=== PATIENT | male | born 1945 | race American Indian/Alaskan Native ===

== ENCOUNTER 2017-06-15 04:49 | Emergency (ER) | payer MEDICARE, OTHER ==
[~2017-06-15] VITALS: Ht 162.6 cm; Wt 81.7 kg
[~2017-06-15 04:49] MED LIST: ACETAMINOPHEN325 M1 PO; DAILY VITAMIN1 EAC2 PO; DIAZEPAM5 MG PO; DOCUSATE SODIU100 MG PO; DUONEB 0.5 MG-33 ML INH; HYDROCODON-ACE1 EA10 PO; HYDROCODON-ACE1 EAC8 PO; IBUPROFEN200 MG PO; IBUPROFEN400 MG PO; IPRAT-ALBUT 0.5-3 ML INH; LISINOPRIL10 MG PO; LOPERAMIDE2 M1 PO; MAALOX525 MG/15 PO; MILK OF MA400 MG/5 M PO; NORCO 10-325 T1 EACH PO; PROAIR HFA8.5 GM INH; TRAZODONE HCL50 MG PO; VITAMIN D32000 UNIT PO
== END 2017-06-15 06:20 | disposition home or self-care (01) ==
LOC: ED 04:49
DX: F10.229 Alcohol dependence with intoxication, unspecified (principal); I10 Essential (primary) hypertension; E78.00 Pure hypercholesterolemia, unspecified; Z87.891 Personal history of nicotine dependence; Z88.6 Allergy status to analgesic agent
CPT/HCPCS: 99283

== ENCOUNTER 2017-11-08 14:53 | Emergency (ER) | payer MEDICARE, OTHER ==
[~2017-11-08] VITALS: Ht 162.6 cm; Wt 81.7 kg
[2017-11-08] MEDS ORDERED: IBUPROFEN600 MG PO (15:10)
[2017-11-08] MEDS ORDERED: KEFLEX500 MG PO (15:10)
== END 2017-11-08 15:18 | disposition home or self-care (01) ==
LOC: ED 14:53
DX: M79.645 Pain in left finger(s) (principal); M79.89 Other specified soft tissue disorders

== ENCOUNTER 2017-12-07 20:01 | Emergency (ER) | payer MEDICARE, OTHER ==
[~2017-12-07] VITALS: Ht 162.6 cm; Wt 81.7 kg
[~2017-12-07 20:01] MED LIST changes: +IBUPROFEN600 MG PO; +KEFLEX500 MG PO
== END 2017-12-07 21:56 | disposition home or self-care (01) ==
LOC: ED 20:01
DX: S41.111A Laceration without foreign body of right upper arm, initial encounter (principal); W17.89XA Other fall from one level to another, initial encounter; E78.00 Pure hypercholesterolemia, unspecified; I10 Essential (primary) hypertension; Z88.8 Allergy status to other drugs, medicaments and biological substances; Z79.899 Other long term (current) drug therapy; Z79.2 Long term (current) use of antibiotics
CPT/HCPCS: 99282

== ENCOUNTER 2018-01-23 19:39 | Emergency (ER) | payer MEDICARE, OTHER ==
[~2018-01-23] VITALS: Ht 162.6 cm; Wt 81.7 kg
--- OUTSIDE RECORDS SUMMARY | ~2018-01-23 | XMS | Clinical Summary ---
Demographics + + + | Address | [address] | | | [place] [address] | + + + | Home Phone | | + + + | Preferred Language | Unknown | + + + | Marital Status | | + + + | Episcopal Affiliation | Unknown | + + + | Race | Unknown | + + + | Ethnic Group | Unknown | + + + Author + + + | Author | [employer] | + + + | Organization | [facility] | + + + | Address | Unknown | + + + | Phone | Unavailable | + + + Support + + + + + | Name | Relationship | Address | Phone | + + + + + | Roxann Hicks | ECON | [address] | | | | | [place] | | | | | [address] | | + + + + + Care Team Providers + +------+ + | Care Electro Mechanical Technologist Name | Role | Phone | + +------+ + | Cornelius Munguia | PP | | + +------+ + Allergies + + + + + + | Active Allergy | Reactions | Severity | Noted | Comments | | | | | Date | | + + + + + + | Salsalate | Other (See Comments) | Medium | 04/10/20 | Unable to assess | | | | | 16 | | + + + + + + Current Medications No known medications Active Problems + + + | Problem | Noted Date | + + + | Head trauma | 04/10/2016 | + + + | 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, continuous | 04/10/2016 | + + + | Alcohol abuse | 04/10/2016 | + + + | Hypokalemia | 04/10/2016 | + + + | Unspecified essential hypertension | 04/10/2016 | + + + | Hyperlipidemia | 04/10/2016 | + + + Social History + +-------+ +--------+ + | Tobacco Use | Types | Packs/Day | Years | Date | | | | | Used | | + +-------+ +--------+ + | Former Smoker | | | | Quit: 07/28/1981 | + +-------+ +--------+ + + + +---------+ + | Alcohol Use | Drinks/We | oz/Week | Comments | | | ek | | | + + +---------+ + | Yes | | | #2 40oz beer | + + +---------+ + + + + | Sex Assigned at | Date Recorded | | | | + + + | Not on file | | + + + Last Filed Vital Signs + + + + | Vital Sign | Reading | Time Taken | + + + + | Blood Pressure | 149/69 | 04/10/2016 3:13 PM PST | + + + + | Pulse | 70 | 04/10/2016 3:13 PM PST | + + + + | Temperature | 36.8 C (98.2 F) | 04/10/2016 3:13 PM PST | + + + + | Respiratory Rate | 18 | 04/10/2016 3:13 PM PST | + + + + | Oxygen Saturation | 100% | 04/10/2016 3:13 PM PST | + + + + | Inhaled Oxygen | - | - | | Concentration | | | + + + + | Weight | 82.6 kg (182 lb) | 04/10/2016 5:46 AM PST | + + + + | Height | 165.1 cm (5' 5") | 04/10/2016 5:46 AM PST | + + + + | Body Mass Index | 30.29 | 04/10/2016 5:46 AM PST | + + + + Plan of Treatment Not on file Results Not on filefrom Last 3 Months Insurance + +--------+ +------+-------+ + | Payer | Benefi | Subscriber | Type | Phone | Address | | | t Plan | ID | | | | | | / | | | | | | | Group | | | | | + +--------+ +------+-------+ + | MEDICARE | MEDICA | [id number] | | | [address] | | | RE | | | | [place] [id number] | | | IP-OP | | | | | + +--------+ +------+-------+ + | [facility] | YELLOW | [id number] | | | | | PLANS | [place] | | | | | + +--------+ +------+-------+ + | MEDICAID | [place] | [id number] | | | [address] | | | N | | | | [place], [place] | | | [place] | | | | [address] | | | SUPERVISOR BILLPOSTING | | | | | + +--------+ +------+-------+ + | MEDICAID | MEDICA | [id number] | | | [address] | | | ID | | | | [place], [place] | | | [place] | | | | [phone] | + +--------+ +------+-------+ + + +--------+ +--------+ + + | Guarantor Name | Accoun | Relation to | Date | Phone | Billing Address | | | t Type | Patient | of | | | | | | | | | | + +--------+ +--------+ + + | BRETT OSMAN | Person | Self [birth year] | Home: | [address] | | | al/Fam | | 1946 | [phone] | [place] [address] | | | [place] | | | [birth year] | | + +--------+ +--------+ + +
--- OUTSIDE RECORDS SUMMARY | ~2018-01-23 | XMS | Clinical Summary ---
Demographics + + + | Address | [address] | | | [place] [address] | + + + | Home Phone | | + + + | Preferred Language | Unknown | + + + | Marital Status | | + + + | Mu-Ism Affiliation | Unknown | + + + | Race | Unknown | + + + | Ethnic Group | Unknown | + + + Author + + + | Author | [facility] [employer] | + + + | Organization | [facility] | + + + | Address | Unknown | + + + | Phone | Unavailable | + + + Support + + + + + | Name | Relationship | Address | Phone | + + + + + | Roxann Hicks | ECON | [address] | | | | | [place] | | | | | [address] | | + + + + + Care Team Providers + +------+ + | Care Cargo And Container Inspector Name | Role | Phone | + [...] +------+-------+ + | MEDICARE | MEDICA | [id number] | | | [address] | | | RE | | | | [place] [phone] | | | IP-OP | | | | | + +--------+ +------+-------+ + | [facility] | YELLOW | [id number] | | | | | PLANS | [place] | | | | | + +--------+ +------+-------+ + | MEDICAID | [place] | [id number] | | | [address] | | | N | | | | [place], [place] | | | [place] | | | | [address] | | | 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
--- OUTSIDE RECORDS SUMMARY | ~2018-01-23 | XMS | Clinical Summary ---
Demographics + + + | Address | [address] | | | [place] [address] | + + + | Home Phone [...] Author | [facility] | | | and [facility] | + + + | Organization | [facility] | | | and [facility] | + + + | Address | Unknown | + + + | Phone | Unavailable | + + + Support + + + + + | Name | Relationship | Address | Phone | + + + + + | Roxann Hicks | ECON | [address] | | | | | [place] | | | | | [address] | | + + + + + Care Team Providers + +------+ + | Care Ice House Supervisor Name | Role | Phone | + +------+ + | Cornelius Munguia PA-C | PP | | + +------+ + [...] + + + + + Current Medications + + + +---------+------+------+-------+ | Prescription | Sig. | Disp. | Refills | Star | End | Statu | | | | | | t | Date | s | | | | | | Date | | | + + + +---------+------+------+-------+ | Cholecalciferol | Take 2,000 Units by | | | | | Activ | | (VITAMIN D3) 2000 | mouth Daily. | | | | | e | | UNITS CAPS | | | | | | | + + + +---------+------+------+-------+ | ibuprofen | Take 800 mg by mouth | | | | | Activ | | (ADVIL,MOTRIN) 800 | every 8 hours as | | | | | e | | MG tablet | needed. | | | | | | + + + +---------+------+------+-------+ | lisinopril | Take 10 mg by mouth | | | | | Activ | | (PRINIVIL, ZESTRIL) | Daily. | | | | | e | | 10 mg tablet | | | | | | | + + + +---------+------+------+-------+ | Multiple | Take by mouth | | | | | Activ | | Vitamins-Minerals | Daily. | | | | | e | | (MULTIVITAMIN PO) | | | | | | | + + + +---------+------+------+-------+ | diazepam (VALIUM) | Take 5 mg by mouth | | | | | Activ | | 5 mg tablet | every 6 hours as | | | | | e | | | needed. | | | | | | + + + +---------+------+------+-------+ | loperamide | Take 2 mg by mouth 4 | | | | | Activ | | (IMODIUM) 2 mg | times daily as | | | | | e | | capsule | needed. | | | | | | + + + +---------+------+------+-------+ | acetaminophen | Take 650 mg by mouth | | | | | Activ | | (TYLENOL) 325 mg | every 4 hours as | | | | | e | | tablet | needed. | | | | | | + + + +---------+------+------+-------+ | Magnesium | Take by mouth as | | | | | Activ | | Hydroxide [...] | | | | | | ([facility]) | | | | | | | + + + +---------+------+------+-------+ | | Take 1 tablet by | | | | | Activ | | HYDROcodone-acetamin [...] | Take 1 tablet by | | | | | Activ | | (OSCAL) 500 mg-200 | mouth Daily. | | | | | e | | units per tablet | | | | | | | + + + +---------+------+------+-------+ | docusate sodium | Take 100 mg by mouth | | | | | Activ | | (COLACE) 100 mg | Daily. | | | | | e | | capsule | | | | | | | + + + +---------+------+------+-------+ | magnesium oxide | Take 400 mg by mouth | | | | | Activ | | (MAG-OX) 400 mg | Daily. | | | | | e | | tablet | | | | | | | + + + +---------+------+------+-------+ Active Problems + + + | Problem | Noted Date | + + + | COPD (chronic obstructive pulmonary disease) ([facility]) | 06/28/2013 | + + + | [...] + + + + | Name | Dates Previously Given | Next Due | + + + [...] + +---------+ + | Yes | 14 | 7.0 | 3 24oz beers/days | | | Standard | | | | | drinks or | | | | | | | | | | equivalen | | | | | t | | | + + +---------+ + + + + | Sex Assigned at | Date Recorded | | | | + + + | Not on file | | + + + Last Filed Vital Signs + + + + | Vital Sign | Reading | Time Taken | + + + + | Blood Pressure | 142/68 | 05/31/2014 1422 PST | + + + + | Pulse | 78 | 05/31/2014 1422 PST | + + + + | Temperature | 37 C (98.6 F) | 05/02/2012 1300 PST | + + + + | Respiratory Rate | 20 | 04/12/2012 1534 PST | + + + + | Oxygen Saturation | 95% | 05/31/20141421 PST | + + + + | Inhaled Oxygen | - | - | | Concentration | | | + + + + | Weight | 83.7 kg (184 lb 8 | 05/31/20141421 PST | | | oz) | | + + + + | Height | 161.3 cm (5' 3.5") | 05/31/20141421 PST | + + + + | Body Mass Index | 32.17 | 05/31/20141421 PST | + + + + Plan of Treatment + + + + + | Health Maintenance | Due Date | Last Done | Comments | + + + + + | Vaccine: | | | | | Dtap/Tdap/Td (1 - | 6 | | | | Tdap) | | | | + + + + + | Vaccine: Zoster (1 | | | | | of 2) | 7 | | | + + + + + | Vaccine: | | 05/31/2014 | | | Pneumococcal 65+ | 6 | | | | Low/Medium Risk (2 | | | | | of 2 - PPSV23) | | | | + + + + + | Vaccine: Influenza | | 05/31/2014, 02/27/2014, | | | (#1) | 8 | 03/02/2012 | | + + + + + Results Not on filefrom Last 3 Months Insurance + +--------+ +--------+ +---------+ | Payer | Benefi | Subscriber | Type | Phone | Address | | | t Plan | ID | | | | | | / | | | | | | | Group | | | | | + +--------+ +--------+ +---------+ | MEDICARE | MEDICA | [id number] | [place] | [phone] | | | | RE | | re | [phone] | | | | PART A | | | | | | | AND B | | | | | + +--------+ +--------+ +---------+ | [place]ICAID [place] | MEDICA | [id number] | [place] | [phone] | | | [place] | | id | [phone] | | | | PLUS | | | | | + +--------+ +--------+ +---------+ | [facility] | IHS | [id number] | Indemn | | | | SERVICE | [place] | | ity | | | | | [place] | | | | | + +--------+ +--------+ +---------+ + +--------+ +--------+ + + | Guarantor Name | Accoun | Relation to | Date | Phone | Billing Address | | | t Type | Patient | of | | | | | | | | | | + +--------+ +--------+ + + | BRETT OSMAN | Person | Self | [birth year] | Home: | [address] | | | al/Fam | | 1946 | [phone] | [place] [address] | | | [place] | | | [phone] | | + +--------+ +--------+ + +
--- OUTSIDE RECORDS SUMMARY | ~2018-01-23 | XMS | Clinical Summary ---
Demographics + + + | Address | [address] | | | [place] [address] | + + + | Home Phone | | + + + | Preferred Language | Unknown | + + + | Marital Status | Single | + + + | Zoroastrian Affiliation | Unknown | + + + | Race | Unknown | + + + | Ethnic Group | Unknown | + + + Author + + + | Author | [facility] | | | and [facility] | + + + | Organization | [facility] | | | and [facility] | + + + | Address | Unknown | + + + | Phone | Unavailable | + + + Support + + + + + | Name | Relationship | Address | Phone | + + + + + | Roxann Hicks | ECON | [address] | | | | | [place] | | | | | [address] | | + + + + + Care Team Providers + +------+ + | Care Accounting Specialist Name | Role | Phone | + [...] | | | | | | | ([facility]) | | | | | | | [...] + | COPD (chronic obstructive pulmonary disease) ([facility]) | 06/28/2013 | + + + | [...] +--------+ +---------+ | MEDICARE | MEDICA | [id number] | Medica | [phone] | | | | RE | | re | [phone] | | | | PART A | | | | | | | AND B | | | | | + +--------+ +--------+ +---------+ | [place]ICAID [place] | MEDICA | [id number] | [place] | [phone] | | | [place] | | id | [phone] | | | | PLUS | | | | | + +--------+ +--------+ +---------+ | [facility] | IHS | [id number] | Indemn | | | | SERVICE [...] | Self | [birth year] | Home: | [address] | | | al/Fam | | 1946 | [phone] | [place] [address] | | | [place] | | | [phone] | | + +--------+ +--------+ + +
== END 2018-01-23 20:55 | disposition home or self-care (01) ==
LOC: ED 19:39
DX: F10.129 Alcohol abuse with intoxication, unspecified (principal); I10 Essential (primary) hypertension; Z87.891 Personal history of nicotine dependence; Z88.8 Allergy status to other drugs, medicaments and biological substances
CPT/HCPCS: 99284

== ENCOUNTER 2019-10-19 21:18 | Emergency (ER) | payer MEDICARE, OTHER ==
[~2019-10-19] VITALS: Ht 162.6 cm; Wt 81.7 kg
--- OUTSIDE RECORDS SUMMARY | ~2019-10-19 | XMS | Encounter Summary ---
Demographics + + + | Address | [address] | | | [place] [address] | + + + | Home Phone | | + + + | Preferred Language | Unknown | + + + | Marital Status | Single | + + + | Confucianist Affiliation | Unknown | + + + | Race | Unknown | + + + | Ethnic Group | Unknown | + + + Author + + + | Author | [facility] | | | and [place] | + + + | Organization | [facility] | | | and [place] | + + + | Address | Unknown | + + + | Phone | Unavailable | + + + Support + + + + + | Name | Relationship | Address | Phone | + + + + + | Roxann Hicks | ECON | [address] | | | | | [place] | | | | | [address] | | + + + + + Care Team Providers + +------+ + | Care Master Craftsman Name | Role | Phone | + +------+ + | Cornelius Munguia PA-C | PCP | | + +------+ + Reason for Visit + + + | Reason | Comments | + + + | Establish Care | | + + + Evaluate & Treat (Routine) +--------+--------+ + + + + | Status | Reason | Specialty | Diagnoses / | Referred By | Referred To | | | | | Procedures | Contact | Contact | +--------+--------+ + + + + | Closed | | Pulmonology | Diagnoses | Nilda, | Jesus Alberto, | | | | | Lung | Cornelius Mittal, | MD Sivakumar | | | | | abnormality | [place] [address] | [address] | | | | | Procedures | [place] | [place], | | | | | [place] | WAY | [place] [address] | | | | | OFFICE/OUTPT | Ezra, | Phone: | | | | | | [place] [address] | [phone] | | | | | VISIT,PAMLE | Phone: | Fax: | | | | | VL IV | [phone] | [phone] | | | | | | Fax: | | | | | | | [phone] | | +--------+--------+ + + + + Encounter Details +--------+---------+ + + + | Date | Type | Department | Care Team | Description | +--------+---------+ + + + | 05/02/ | Office | [facility] | Sivakumar Granda, | Pre-op chest exam | | 2011 | Visit | PULMONARY [address] | MD [address] | (Primary Dx) | | | | [place], | [place], [place] | | | | | [place] [address] | [address] | | | | | [phone] | | | +--------+---------+ + + + Social History + + + +--------+ + | Tobacco Use | Types | Packs/Day | Years | Date | | | | | Used | | + + + +--------+ + | Former Smoker | Cigarettes | 3 | 35 | Quit: 05/30/1991 | + + + +--------+ + + +---+---+---+ | Smokeless Tobacco: | | | | | Never Used | | | | + +---+---+---+ + + +---------+ + | Alcohol Use | Drinks/Week | oz/Week | Comments | + + +---------+ + | Yes | 14 Standard drinks | 11.7 | 3 24oz beers/days | | | or equivalent | | | + + +---------+ + + + + | Sex Assigned at | Date Recorded | | | | + + + | Not on file | | + + + + + + + | Job Start Date | Occupation | Industry | + + + + | Not on file | Not on file | Not on file | + + + + + + + + | Travel History | Travel Start | Travel End | + + + + + + | No recent travel history available. | + + documented as of this encounter Last Filed Vital Signs + + + + + | Vital Sign | Reading | Time Taken | Comments | + + + + + | Blood Pressure | 130/68 | 05/02/2012 1:00 PM | | | | | PST | | + + + + + | Pulse | 80 | 05/02/2012 1:00 PM | | | | | PST | | + + + + + | Temperature | 37 C (98.6 F) | 05/02/2012 1:00 PM | | | | | PST | | + + + + + | Respiratory Rate | - | - | | + + + + + | Oxygen Saturation | 98% | 05/02/2012 1:00 PM | | | | | PST | | + + + + + | Inhaled Oxygen | - | - | | | Concentration | | | | + + + + + | Weight | 81.1 kg (178 lb 12.8 | 05/02/2012 1:00 PM | | | | oz) | PST | | + + + + + | Height | 161.3 cm (5' 3.5") | 05/02/2012 1:00 PM | | | | | PST | | + + + + + | Body Mass Index | 31.18 | 05/02/2012 1:00 PM | | | | | PST | | + + + + + documented in this encounter Patient Instructions Patient Instructions Sivakumar Granda MD - 05/02/2012 1:[address] PM [address] surgery risk af ter reviewing lung function tests.Electronically signed by Sivakumar Granda MD at 2 1:37 PM PST documented in this encounter Progress Notes Sivakumar Granda MD - 05/02/2012 1:20 PM PSTFormatting of this note might be different f rom the original. Pulmonary Consult Note HPI Brett Reis is a 66 y.o. male patient of Cornelius TORRES here today for evaluation of pre-op pulmonary exam. Mr. Reis recently saw Dr. Redmond and was noted to have an epigastric incisional hernia with probable incarceration. Dr. Redmond has recommended surgery. Related to the patient's prior "lung "history pulmonary consultation was requested. 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 He notes that he first started having troubles with their breathing at age 22. Condition un clear. "Un-expanded" by report. Treated with Proventil. Injections too. At that time the y presented with symptoms of SOB. Since that time their symptoms have remained stable. They report their main symptoms at thi s point to be SOB which is mild. Difficulty breathing through nose secondary to trauma. Currently they are able to walk 7 blocks at their own pace on level ground. The distance wa lked is predominately limited by BROWN and right knee pain. One year ago, they feel that they could walk 7 blocks. They do not exercise regularly. They are not enrolled in cardiac/pulmon jacquelin rehabilitation or other physical therapy. They have not completed pulmonary rehabilitati on in the past. He does not cough chronically, and does produce mucous. The mucous is clear and occasionall y yellow in color. They have not had hemoptysis. Triggers for their shortness of breath include exertion. Relieving factors include rest. Treatments that they have tried to this point include Proventil. Currently they are on no p ulmonary meds. They have not had to be hospitalized for breathing issues in the past, and have not require d intubation in the past. They have not had to go to the emergency room in the last year. Th ey have had 0 exacerbations in the past year requiring treatment with prednisone or antibiot ics. He has not been evaluated for nocturnal oxygen and does not use it. They have not been eval uated for daytime oxygen and do not use it. The patient is currently living with his nephew. His alcohol intake is recently decreased. Over 30 years ago Kiran used a Proventil inhaler but was uncertain whether it helped his sym ptoms. 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 He wonders a sbestos exposure occurred. Past Medical History Past Medical History Diagnosis Date Osteoarthritis Osteoarthrosis Dyspnea on exertion Hypertension Vitamin d deficiency Chronic pain Right knee Knee injury Right knee Lower leg fracture left Epigastric hernia Past Surgical History Past Surgical History Procedure Date Abdominal exploration surgery 1982 Surgical repair of tib-fib fracture left Family History: Family History Problem Relation Age of Onset Stroke Sister Other (See Comment) Mother Accident Other (See Comment) Father Accident Social History: He reports that he quit smoking about 20 years ago. His smoking use included Cigarettes. He has a 105 pack-year smoking history. He has never used smokeless tobacco. He reports that h e drinks about 7 ounces of alcohol per week. He reports that he does not use illicit drugs. Allergies: Allergies Allergen Reactions Salsalate Hives and Rash Medications: Current outpatient prescriptions:Cholecalciferol (VITAMIN D3) 2000 UNITS CAPS, Take 2,000 U nits by mouth Daily. , Disp: , Rfl: ; HYDROcodone-acetaminophen (NORCO) 5-325 mg per table t, Take 2 tablets by mouth every 6 hours as needed. , Disp: , Rfl: ; ibuprofen (ADVIL,MOTR IN) 800 MG tablet, Take 800 mg by mouth every 8 hours as needed. , Disp: , Rfl: ; lisinopr il (PRINIVIL, ZESTRIL) 10 mg tablet, Take 10 mg by mouth Daily. , Disp: , Rfl: Multiple Vitamins-Minerals (MULTIVITAMIN PO), Take by mouth Daily. , Disp: , Rfl: Review of Systems Constitutional: Denies fever, chills, sweats, fatigue/weakness, and unexpected weight foster ge. Sleep: Denies trouble sleeping, excessive snoring, and daytime sleepiness. Eyes: Denies vision change, and eye irritation. ENT: Denies earache, tinnitus, decreased hearing, nasal congestion, nosebleeds, sore throa t, and hoarseness. Resp: Denies hemoptysis or pleuritic chest pain. CV: Denies neck/chest/jaw pain with exertion, palpitations, lightheadedness, syncope, dysp christel on exertion, orthopnea, PND, peripheral edema, and claudication. GI: Denies trouble swallowing, heartburn, nausea, vomiting, abdominal pain, diarrhea, cons tipation,melena, and hematochezia. Denies dysuria, hematuria, urinary frequency, difficulty emptying bladder, nocturia. Musculoskeletal: Denies joint pain/stiffness, joint swelling, back pain, neck pain, muscle cramps, muscle weakness. Derm: Denies rash, itching, dryness, and suspicious lesions. Neurologic: Denies frequent headaches, seizures, tremors, numbness or tingling in hands or feet, vertigo, and fall or difficulty walking in past 6 months Psych Denies depression, anxiety, suicidal ideation. Endo Denies cold intolerance, heat intolerance, and unusual weight change. Heme Denies abnormal bruising, bleeding, and enlarged lymph nodes. Allergy Denies urticaria, allergic rash, hay fever Objective BP 130/68 | Pulse 80 | Temp(Src) 37 C (98.6 F) (Oral) | Ht 1.613 m (5' 3.5") | Wt 81.10 3 kg (178 lb 12.8 oz) | BMI 31.18 kg/m2 | SpO2 98% General Appearance: Alert, cooperative, no distress, appears stated age. Head: Normocephalic, without obvious abnormality, atraumatic. Eyes: PERRL, conjunctiva/corneas clear. Ears: Normal external appearance, TM's not examined. Nose: Nares normal, septum is displaced, narrowing of the nasal meatus likely from prior na loco fractures. mucosa normal, no drainage or sinus tenderness.patient has scars on his nose . Throat: Lips, mucosa, and tongue normal; gross caries of the teeth. MP 3. Neck: Supple, symmetrical, no adenopathy.patient has evidence of a probable lipoma on the r ight side of his neck. Lungs: No accessory muscle use, breath sounds are reduced to auscultation bilaterally, no wheezes, crackles or rhonchi. No dullness to percussion.no expiratory wheezes with forced exhalation. Chest Wall: No tenderness or deformity. Heart: Regular rate and rhythm, S1, S2 normal, no murmur, rub or gallop Abdomen: Soft, non-tender. No hepatosplenomegaly. Extremities: Extremities normal, atraumatic, no cyanosis, clubbing, or edema Pulses: Radial pulses 2+ and symmetric Skin: Warm and dry Lymph nodes: Cervical and supraclavicular nodes normal Neurologic: gait is somewhat broad-based and irregular. Data: Chest x-ray was done on 04/13/12 and was reviewed and interpreted in clinic today. It shows mild flattening of the diaphragms. There is a suggestion of prior rib fractures on the rig ht. Evidence of an old clavicle fracture is noted on the left. Patient's pulmonary parench yma appears relatively normal. Cornelius TORRES's notes were reviewed in clinic today. Assessment Brett Reis is a 66-year-old prior smoker who presents at the request of Cornelius TORRES f or pulmonary consultation related to a planned epigastric incisional hernia repair. Per history the patient has approximately a 310-butl-wjov smoking history. He reports smok ing in 1991. As a distant history of "lung disease "of unclear etiology previously followed by a reed worker in [facility]. There has a distant memory of use of short acting beta agonists but is unable to further elaborate. Per history the is limited in his exertional tolerance related to both right knee pain and shortness of breath. He has an intermittent cough which is productive of scant amounts of s putum. The patient's physical exam is fairly unremarkable. I do not appreciate findings concernin g for advanced obstructive lung disease with asbestosis despite Mr. Reis's occupational exp osure. An x-ray from March shows mild hyperinflation and possible old rib fractures but no othe r significant findings. Of note there is no evidence of diaphragmatic dysfunction. It remains unclear as to whether this patient has increased risk for pulmonary complication s related to abdominal surgery. I suggested to Brett that he had pulmonary function tests p erformed. Not only will such tests be able to assess for obstructive lung disease will also get at the patient's concern that his lungs do not adequately inflated. Mr. Reis does have a significant alcohol use history and thus would be at risk for develop ing withdrawal symptoms if unable to consume alcohol for any significant period of time. Plan 1. Spirometry with and without bronchodilators, lung volumes and diffusion capacity. 2. Exertional oximetry. 3. Pulmonary clinic followup appointment to review the above noted studies in approximatel y 4 weeks per patient request. documented in this encounter Plan of Treatment Not on filedocumented as of this encounter Visit Diagnoses + + | Diagnosis | + + | Pre-op chest exam - Primary Pre-operative respiratory examination | + + documented in this encounter
--- OUTSIDE RECORDS SUMMARY | ~2019-10-19 | XMS | Encounter Summary ---
Demographics + + + | Address | [address] | | | [place] [address] | + + + | Home Phone | | + + + | Preferred Language | Unknown | + + + | Marital Status | Single | + + + | Cheondoism Affiliation | Unknown | + + + | Race | Unknown | + + + | Ethnic Group | Unknown | + + + Author + + + | Author | [facility] | | | and [place] | + + + | Organization | [facility] | | | and [place] | + + + | Address | Unknown | + + + | Phone | Unavailable | + + + Support + + + + + | Name | Relationship | Address | Phone | + + + + + | Roxann Hicks | ECON | [address] | | | | | [place] | | | | | [address] | | + + + + + Care Team Providers + +------+ + | Care Head Screen Worker Name | Role | Phone | + +------+ + | Cornelius Munguia PA-C | PCP | | + +------+ + Encounter Details +--------+ + + + + | Date | Type | Department | Care Team | Description | +--------+ + + + + | 04/27/ | Abstract | [facility] [place] | Sivakumar Granda, | Knee pain; | | 2011 | | PULMONARY [address] | MD [address] | Osteoarthritis; | | | | [place], | [place], [place] | Incisional hernia; | | | | [place] [address] | [address] | Osteoarthrosis; | | | | [phone] | | Incarcerated | | | | | | epigastric hernia; | | | | | | SOB (shortness of | | | | | | breath) | +--------+ + + + + Social History + + + +--------+ + | Tobacco Use | Types | Packs/Day | Years | Date | | | | | Used | | + + + +--------+ + | Former Smoker | Cigarettes | 3 | 35 | Quit: 05/30/1991 | + + + +--------+ + + + +---------+ + | Alcohol Use | Drinks/Week | oz/Week | Comments | + + +---------+ + | Yes | 14 Standard drinks | 11.7 | | | | or equivalent | | [...] + + + | Blood Pressure | 122/65 | 04/12/2012 3:34 PM | | | | | PST | | + + + + + | Pulse | 66 | 04/12/2012 3:34 PM | | | | | PST | | + + + + + | Temperature | 36.4 C (97.5 F) | 04/12/2012 3:34 PM | | | | | PST | | + + + + + | Respiratory Rate | 20 | 04/12/2012 3:34 PM | | | | | PST | | + + + + + | Oxygen Saturation | - | - | | + + + + + | Inhaled Oxygen | - | - | | | Concentration | | | | + + + + + | Weight | 83 kg (183 lb) | 04/12/2012 3:34 PM | | | | | PST | | + + + + + | Height | 162.6 cm (5' 4") | 04/12/2012 3:34 PM | | | | | PST | | + + + + + | Body Mass Index | 31.41 | 04/12/2012 3:34 PM | | | | | PST | | + + + + + documented in this encounter Plan of Treatment Not on filedocumented as of this encounter Visit Diagnoses + + | Diagnosis | + + | Knee pain Pain in joint, lower leg | + + | Osteoarthritis Osteoarthrosis, unspecified whether generalized or localized, | | unspecified site | + + | Incisional hernia Incisional hernia without mention of obstruction or gangrene | + + | Osteoarthrosis Osteoarthrosis, unspecified whether generalized or localized, | | unspecified site | + + | Incarcerated epigastric hernia Other ventral hernia with obstruction | + + | SOB (shortness of breath) Shortness of breath | + + documented in this encounter
--- OUTSIDE RECORDS SUMMARY | ~2019-10-19 | XMS | Encounter Summary ---
Demographics + + + | Address | [address] | | | [place] [address] | + + + | Home Phone | | + + + | Preferred Language | Unknown | + + + | Marital Status | Single | + + + | Amish Affiliation | Unknown | + + + | Race | Unknown | + + + | Ethnic Group | Unknown | + + + Author + + + | Author | [facility] | | | and [place] | + + + | Organization | [facility] | | | and [place] | + + + | Address | Unknown | + + + | Phone | Unavailable | + + + Support + + + + + | Name | Relationship | Address | Phone | + + + + + | Roxann Hicks | ECON | [address] | | | | | [place] | | | | | [address] | | + + + + + Care Team Providers + +------+ + | Care Glazier Apprentice Name | Role | Phone | + +------+ + | Cornelius Munguia PA-C | PCP | | + +------+ + Encounter Details +--------+ + + + + | Date | Type | Department | Care Team | Description | +--------+ + + + + | 05/18/ | Orders Only | [facility] [place] | Granda Sivakumar, | Shortness of breath | | 2013 | | PULMONARY [address] | MD [address] | (Primary Dx) | | | | [place], | [place], [place] | | | | | [place] [address] | [address] | | | | | [phone] | | | +--------+ + + + + Social History + + + +--------+ + | Tobacco Use | Types | Packs/Day | Years | Date | | | | | Used | | + + + +--------+ + | Former Smoker | Cigarettes | 3 | 35 | Quit: 05/30/1981 | + + + +--------+ + + [...] + + documented as of this encounter Plan of Treatment + + +--------+ + + | Name | Type | Priori | Associated Diagnoses | Order Schedule | | | | ty | | | + + +--------+ + + | * [facility] | Respiratory | [facility] | Shortness of | 1 Occurrences | | [facility])Pulmonary | Care | | breath | starting 05/18/2013 | | Function Testing - | | | | until 05/18/2014 | | AMB Referral | | | | | + + +--------+ + + documented as of this encounter Visit Diagnoses + + | Diagnosis | + + | Shortness of breath - Primary | + + documented in this encounter"
--- OUTSIDE RECORDS SUMMARY | ~2019-10-19 | XMS | Encounter Summary ---
Demographics + + + | Address | [address] | | | [place] [address] | + + + | Home Phone | | + + + | Preferred Language | Unknown | + + + | Marital Status | Single | + + + | Holiness Affiliation | Unknown | + + + | Race | Unknown | + + + | Ethnic Group | Unknown | + + + Author + + + | Author | [facility] | | | and [place] | + + + | Organization | [facility] | | | and [place] | + + + | Address | Unknown | + + + | Phone | Unavailable | + + + Support + + + + + | Name | Relationship | Address | Phone | + + + + + | Roxann Hicks | ECON | [address] | | | | | [place] | | | | | [address] | | + + + + + Care Team Providers + +------+ + | Care Direct Service Provider Name | Role | Phone | + +------+ + | Cornelius Munguia PA-C | PCP | | + +------+ + Reason for Visit + + + | Reason | Comments | + + + | Appointment | | + + + Encounter Details +--------+ + + + + | Date | Type | Department | Care Team | Description | +--------+ + + + + | 05/29/ | Telephone | [facility] [place] | Sivakumar Granda, | El | | 2012 | | PULMONARY [address] | MD [address] | | | | | [place], | [place], [place] | | | | | [place] [address] | [address] | | | | | [phone] | | | +--------+ + + + [...] as of this encounter Plan of Treatment Not on filedocumented as of this encounter Visit Diagnoses Not on filedocumented in this encounter"
--- OUTSIDE RECORDS SUMMARY | ~2019-10-19 | XMS | Encounter Summary ---
Demographics + + + | Address | [address] | | | [place] [address] | + + + | Home Phone | | + + + | Preferred Language | Unknown | + + + | Marital Status | Single | + + + | Samaritan Affiliation | Unknown | + + + | Race | Unknown | + + + | Ethnic Group | Unknown | + + + Author + + + | Author | [facility] | | | and [place] | + + + | Organization | [facility] | | | and [place] | + + + | Address | Unknown | + + + | Phone | Unavailable | + + + Support + + + + + | Name | Relationship | Address | Phone | + + + + + | Roxann Hicks | ECON | [address] | | | | | [place] | | | | | [address] | | + + + + + Care Team Providers + +------+ + | Care Administrator Health Care Facility Name | Role | Phone | + +------+ + | Cornelius Munguia PA-C | PCP | | + +------+ + Encounter Details +--------+ + + + + | Date | Type | Department | Care Team | Description | +--------+ + + + + | 06/28/ | Hospital | [facility] | Sivakumar Granda, | | | 2013 | Encounter | MED CTR GENERIC OP | MD [address] | | | | | CONV DEPT [address] | [place], [place] | | | | | [place], | [address] | | | | | [place] [address] | | | | | | [phone] | | | +--------+ + + + [...] + + documented as of this encounter Medications at Time of Discharge + + + +---------+ + + | Medication | Sig | Dispensed | Refills | Start | End Date | | | | | | Date | | + + + +---------+ + + | acetaminophen | Take 650 mg by mouth | | 0 | | | | (TYLENOL) 325 mg | every 4 hours as | | | | | | tablet | needed. | | | | | + + + +---------+ + + | albuterol | Inhale 2 puffs into | 1 | 0 | 06/21/19 | | | (VENTOLIN HFA) 90 | the lungs every 4 | Inhaler | | 14 | | | mcg/puff | hours as needed for | | | | | | inhalerIndications: | Wheezing or | | | | | | SOB (shortness of | Shortness of Breath. | | | | | | breath) | | | | | | + + + +---------+ + + | | Take 3 mLs by | 100 mL | 2 | 06/28/19 | | | albuterol-ipratropiu | nebulization 4 times | | | 14 | | | m (DUONEB) 2.5-0.5 | daily. | | | | | | mg/3 mL | | | | | | | SOLNIndications: | | | | | | | COPD (chronic | | | | | | | obstructive | | | | | | | pulmonary disease) | | | | | | | ([facility]) | | | | | | + + + +---------+ + + | Cholecalciferol | Take 2,000 Units by | | 0 | | | | (VITAMIN D3) 2000 | mouth Daily. | | | | | | UNITS CAPS | | | | | | + + + +---------+ + + | diazepam (VALIUM) | Take 5 mg by mouth | | 0 | | | | 5 mg tablet | every 6 hours as | | | | | | | needed. | | | | | + + + +---------+ + + | ibuprofen | Take 800 mg by mouth | | 0 | | | | (ADVIL,MOTRIN) 800 | every 8 hours as | | | | | | MG tablet | needed. | | | | | + + + +---------+ + + | lisinopril | Take 10 mg by mouth | | 0 | | | | (PRINIVIL, ZESTRIL) | Daily. | | | | | | 10 mg tablet | | | | | | + + + +---------+ + + | loperamide | Take 2 mg by mouth 4 | | 0 | | | | (IMODIUM) 2 mg | times daily as | | | | | | capsule | needed. | | | | | + + + +---------+ + + | Magnesium | Take by mouth as | | 0 | | | | Hydroxide (MILK OF | needed. | | | | | | MAGNESIA PO) | | | | | | + + + +---------+ + + | Multiple | Take by mouth | | 0 | | | | Vitamins-Minerals | Daily. | | | | | | (MULTIVITAMIN PO) | | | | | | + + + +---------+ + + | | Take 2 tablets by | | 0 | | | | HYDROcodone-acetamin | mouth every 6 hours | | | | 4 | | ophen (NORCO) 5-325 | as needed. | | | | | | mg per tablet | | | | | | + + + +---------+ + + | traZODone | Take 50 mg by mouth | | 0 | | | | (DESYREL) 50 mg | nightly. | | | | 4 | | tablet | | | | | | + + + +---------+ + + documented as of this encounter Plan of Treatment Not on filedocumented as of this encounter Visit Diagnoses Not on filedocumented in this encounter"
--- OUTSIDE RECORDS SUMMARY | ~2019-10-19 | XMS | Encounter Summary ---
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 [facility];[address] | | LAB | | | Neutrophils | [address];[place] | | | | | | [address] | | | | + + + + + + | % | 24.49Comment: Testing | % | EXTERNAL | | | Lymphocytes | performed at [facility];[address] | | LAB | | | | [address];[place] | | | | | | [address] | | | | + + + + + + | % Monocytes | 5.64Comment: Testing | % | EXTERNAL | | | | performed at [facility];[address] | | LAB | | | | [address];[place] | | | | | | [address] | | | | + + + + + + | % | 18.98Comment: Testing | % | EXTERNAL | | | Eosinophils | performed at [facility];[address] | | LAB | | | | [address];[place] | | | | | | [address] | | | | + + + + + + | % Basophils | 0.91Comment: Testing | % | EXTERNAL | | | | performed at [facility];[address] | | LAB | | | | [address];[place] | | | | | | [address] | | | | + + + + + + | Absolute | 3.32Comment: Testing | 1.90 - 7.40 | EXTERNAL | | | Segmented | performed at [facility];888 | K/uL | LAB | | | Neutrophils | [address];[place] | | | | | | [address] | | | | + + + + + + | Absolute | 1.63Comment: Testing | 1.00 - 3.90 | EXTERNAL | | | Lymphocytes | performed at [facility];[address] | K/uL | LAB | | | | [address];[place] | | | | | | [address] | | | | + + + + + + | Absolute | 0.37Comment: Testing | 0.00 - 0.80 | EXTERNAL | | | Monocytes | performed at [facility];[address] | K/uL | LAB | | | | [address];[place] | | | | | | [address] | | | | + + + + + + | Absolute | 1.26 (H)Comment: Testing | 0.00 - 0.50 | EXTERNAL | | | Eosinophils | performed at [facility];[address] | K/uL | LAB | | | | [address];[place] | | | | | | [address] | | | | + + + + + + | Absolute | 0.06Comment: Testing | 0.00 - 0.10 | EXTERNAL | | | Basophils | performed at [facility];[address] | K/uL | LAB | | | | [address];[place] | | | | | | [address] | | | | + + + + + + + + | Specimen | + + | Blood specimen | | (specimen) | + + + +---------+ + + | Performing | Address | City/State/Zipcode | Phone Number | | Organization | | | | + +---------+ + + | EXTERNAL LAB | | | | + +---------+ + + Ethanol (04/10/2016 2:42 AM PST) + + + + + + | Component | Value | Ref Range | Performed | Pathologist | | | | | At | Signature | + + + + + + | Ethyl | 123 (H)Comment: Testing | mg/dL | EXTERNAL | | | Alcohol | performed at [facility];[address] | | LAB | | | | [address];[place], [place] | | | | | | [address] | | | | + + + + + + + + | Specimen | + + | Blood specimen | | (specimen) | + + + +---------+ + + | Performing | Address | City/State/Zipcode | Phone Number | | Organization | | | | + +---------+ + + | EXTERNAL LAB | | | | + +---------+ + + Basic Metabolic Panel (04/10/2016 2:42 AM PST) + + + + + + | Component | Value | Ref Range | Performed | Pathologist | | | | | At | Signature | + + + + + + | Na | 145Comment: Testing | 135 - 145 | EXTERNAL | | | | performed at [facility];888 | mmol/L | LAB | | | | [address];[place] | | | | | | [address] | | | | + + + + + + | K | 3.3 (L)Comment: Testing | 3.5 - 4.9 | EXTERNAL | | | | performed at [facility];888 | mmol/L | LAB | | | | [address];[place] | | | | | | [address] | | | | + + + + + + | Cl | 111 (H)Comment: Testing | 99 - 109 mmol/L | EXTERNAL | | | | performed at [facility];[address] | | LAB | | | | [address];[place] | | | | | | [address] | | | | + + + + + + | CO2 | 21 (L)Comment: Testing | 23 - 32 mmol/L | EXTERNAL | | | | performed at [facility];[address] | | LAB | | | | [address];[place] | | | | | | [address] | | | | + + + + + + | Anion Gap | 15Comment: Testing | 5 - 20 mmol/L | EXTERNAL | | | | performed at [facility];[address] | | LAB | | | | [address];[place] | | | | | | [address] | | | | + + + + + + | Glucose, | 110 (H)Comment: Testing | 65 - 99 mg/dL | EXTERNAL | | | Fasting | performed at [facility];[address] | | LAB | | | | [address];[place] | | | | | | [address] | | | | + + + + + + | BUN | 7 (L)Comment: Testing | 8 - 25 mg/dL | EXTERNAL | | | | performed at [facility];[address] | | LAB | | | | [address];[place] | | | | | | [address] | | | | + + + + + + | Creatinine | 0.61 (L)Comment: Testing | 0.70 - 1.30 | EXTERNAL | | | | performed at [facility];888 | mg/dL | LAB | | | | [address];[place] | | | | | | [address] | | | | + + + + + + | BUN/Creatin | 11Comment: Testing | | EXTERNAL | | | ine Ratio | performed at [facility];[address] | | LAB | | | | [address];[place] | | | | | | [address] | | | | + + + + + + | Calcium | 7.6 (L)Comment: Testing | 8.5 - 10.5 | EXTERNAL | | | | performed at [facility];888 | mg/dL | LAB | | | | [address];[place] | | | | | | [address] | | | | + + + + + + | Estimated | >60Comment: GFR <60: | mL/min/1.73m2 | EXTERNAL | | | GFR | CHRONIC KIDNEY DISEASE, | | LAB | | | | IF FOUND OVER A 3 MONTH | | | | | | PERIOD.GFR <15: KIDNEY | | | | | | FAILURE.FOR | | | | | | AMERICANS, MULTIPLY THE | | | | | | CALCULATED GFR BY | | | | | | 1.210.Testing performed | | | | | | at [facility];[address] [place] [address] | | | | | | [facility];[place] [address] | | | | + + + + + + + + | Specimen | + + | Blood specimen | | (specimen) | + + + +---------+ + + | Performing | Address | City/State/Zipcode | Phone Number | | Organization | | | | + +---------+ + + | EXTERNAL LAB | | | | + +---------+ + + Drugs Of ABuse Screen, Urine (H) (04/10/2016 2:36 AM PST) + + + + + + | Component | Value | Ref Range | Performed | Pathologist | | | | | At | Signature | + + + + + + | Methampheta | NEGATIVEComment: | | EXTERNAL | | | mine/ | Positive cutoff for | | LAB | | | Amphetamine | AMP = 1000 ng/mLTesting | | | | | Screen, | performed at [facility];88 | | | | | UA, POC | [facility] [facility];[place], [place] | | | | | | [address] | | | | + + + + + + | Barbiturate | NEGATIVEComment: | | EXTERNAL | | | s Screen, | Positive cutoff for | | LAB | | | Urine | MARGUERITE = 200 ng/mLTesting | | | | | | performed at [facility];[address] | | | | | | [address];[place] | | | | | | [address] | | | | + + + + + + | Benzodiazep | NEGATIVEComment: | | EXTERNAL | | | kortney | Positive cutoff for | | LAB | | | Screen, | BENZO = 200 ng/mLTesting | | | | | Urine | performed at [facility];[address] | | | | | | [address];[place] | | | | | | [address] | | | | + + + + + + | Cocaine | NEGATIVEComment: | | EXTERNAL | | | | Positive cutoff for | | LAB | | | | LAMAR = 300 ng/mLTesting | | | | | | performed at [facility];[address] | | | | | | [address];[place] | | | | | | [address] | | | | + + + + + + | Methadone | NEGATIVEComment: | | EXTERNAL | | | | Positive cutoff for | | LAB | | | | MTD = 300 ng/mLTesting | | | | | | performed at [facility];[address] | | | | | | [address];[place] | | | | | | [address] | | | | + + + + + + | Opiates | NEGATIVEComment: | | EXTERNAL | | | | Positive cutoff for | | LAB | | | | OPI = 300 ng/mLTesting | | | | | | performed at [facility];[address] | | | | | | [address];[place] | | | | | | [address] | | | | + + + + + + | PCP | NEGATIVEComment: | | EXTERNAL | | | | Positive cutoff for | | LAB | | | | PCP = 25 ng/mLTesting | | | | | | performed at [facility];[address] | | | | | | [address];[place] | | | | | | [address] | | | | + + + + + + | Cannabinoid | POSITIVE (A)Comment: | | EXTERNAL | | | s Screen, | Positive cutoff for | | LAB | | | Serum | THC = 50 ng/mLThe above | | | | | | are unconfirmed | | | | | | screening results. | | | | | | These results are to | | | | | | be used only for medical | | | | | | (i.e.,treatment) | | | | | | purposes. Unconfirmed | | | | | | screening results must | | | | | | not be used for | | | | | | non-medical purposes | | | | | | (e.g., employment | | | | | | testing, legal | | | | | | testing).Testing | | | | | | performed at [facility] | | | | | | [facility];[place], [place] | | | | | | [address] | | | | + + + + + + + + | Specimen | + + | | + + + +---------+ + + | Performing | Address | City/State/Zipcode | Phone Number | | Organization | | | | + +---------+ + + | EXTERNAL LAB | | | | + +---------+ + + CT Head wo Contrast (04/09/2016 12:38 AM PST) + + | Specimen | + + | | + + + + + | Narrative | Performed At | + + + | This is a non-reportable procedure without a radiologist report and | | | is used for image storage only | | + + + + + | Procedure Note | + + | Chapo Bates Conversion - 01/11/2019 8:38 PM PDT This is a non-reportable procedure | | without a radiologist report and isused for image storage only | + + documented in this encounter Visit Diagnoses + + | Diagnosis | + + | Pain Generalized pain | + + | Closed head injury, initial encounter | + + | Facial laceration, initial encounter | + + | Alcohol intoxication, uncomplicated (HCC) | + + | Hypokalemia Hypopotassemia | + + documented in this encounter
--- OUTSIDE RECORDS SUMMARY | ~2019-10-19 | XMS | Encounter Summary ---
Demographics + + + | Address | [address] | | | [place] [address] | + + + | Home Phone | | + + + | Preferred Language | Unknown | + + + | Marital Status | Single | + + + | Caodaism Affiliation | Unknown | + + + | Race | Unknown | + + + | Ethnic Group | Unknown | + + + Author + + + | Author | [facility] | | | and [place] | + + + | Organization | [facility] | | | and [place] | + + + | Address | Unknown | + + + | Phone | Unavailable | + + + Support + + + + + | Name | Relationship | Address | Phone | + + + + + | Roxann Hicks | ECON | [address] | | | | | [place] | | | | | [address] | | + + + + + Care Team Providers + +------+ + | Care Cnc Service Engineer Name | Role | Phone | + +------+ + | Cornelius Munguia PA-C | PCP | | + +------+ + Reason for Visit + + + | Reason | Comments | + + + | Follow-up | | + + + Evaluate & Treat (Routine) +--------+--------+ + + + + | Status | Reason | Specialty | Diagnoses / | Referred By | Referred To | | | | | Procedures | Contact | Contact | +--------+--------+ + + + + | Closed | | Pulmonology | Diagnoses | Nilda, | Jesus Alberto, | | | | | Other | Cornelius Mittal, | MD Sivakumar | | | | | diseases of | PA-C [address] | [address] | | | | | lung, not | [place] | [place], | | | | | elsewhere | WAY | [place] [address] | | | | | classified | Ezra, | Phone: | | | | | Procedures | [place] [address] | [phone] | | | | | [place] OFFICE | Phone: | Fax: | | | | | OUTPATIENT | [phone] | [phone] | | | | | VISIT 25 | Fax: | | | | | | MINUTES [place] | [phone] | | | | | | BREATHING | | | | | | | CAPACITY | | | | | | | TEST [place] | | | | | | | EVAL OF | | | | | | | BRONCHOSPASM | | | | | | | [place] EVAL OF | | | | | | | | | | | | | | BRONCHOSPASM | | | | | | | ,PROLONGED | | | | | | | [place] | | | | | | | PLETHYSMOGRA | | | | | | | PHY LUNG | | | | | | | VOLUMES W/WO | | | | | | | AIRWAY | | | | | | | RESIST [place] | | | | | | | DIFFUSING | | | | | | | CAPACITY | | | +--------+--------+ + + + + Encounter Details +--------+---------+ + + + | Date | Type | Department | Care Team | Description | +--------+---------+ + + + | 06/14/ | Office | [facility] | Sivakumar Granda, | SOB (shortness of | | 2013 | Visit | PULMONARY [address] | MD [address] | breath) (Primary | | | | [place], | [place], [place] | Dx); COPD (chronic | | | | [place] [address] | [address] | obstructive | | | | [phone] | | pulmonary disease) | | | | | | (HCC) | +--------+---------+ + + + Social History [...] + + + | Blood Pressure | 128/78 | 06/14/2013 12:57 PM | | | | | PST | | + + + + + | Pulse | 76 | 06/14/2013 12:57 PM | | | | | PST | | + + + + + | Temperature | - | - | | + + + + + | Respiratory Rate | - | - | | + + + + + | Oxygen Saturation | 98% | 06/14/2013 12:57 PM | | | | | PST | | + + + + + | Inhaled Oxygen | - | - | | | Concentration | | | | + + + + + | Weight | 81.9 kg (180 lb 8 | 06/14/2013 12:57 PM | | | | oz) | PST | | + + + + + | Height | 161.3 cm (5' 3.5") | 06/14/2013 12:57 PM | | | | | PST | | + + + + + | Body Mass Index | 31.47 | 06/14/2013 12:57 PM | | | | | PST | | + + + + + documented in this encounter Patient Instructions Patient Instructions Sivakumar Granda MD - 06/14/2013 1:19 PM PSTTrial of Ventolin to se e if shortness of breath improves.Electronically signed by Sivakumar Granda MD at 4 1:20 PM PST documented in this encounter Progress Notes Sivakumar Granda MD - 06/14/2013 1:03 PM PSTFormatting of this note might be different f rom the original. Pulmonary Follow Up 06/14/2013 HPI Brett Osman is a 67 y.o. male patient of Cornelius Munguia here today for follow up of poss ible COPD and SOB. Last visit was on 07/11/12. Since their last appointment they feel like their breathing iss ues have been stable. They have not had any acute illnesses. The patient has not required a prednisone taper since our last clinic appointment. They are currently on no daily regimen of pulmonary meds. Brett was in Dr. Redmond's office and was noted to be short of breath with minimal exertion. Dr. Redmond subsequently contacted us and requested followup. Currently the patient is able to walk 500-1000 feet at their own pace on level ground or [address] but develops some SOB. Uses a walker secondary to right knee pain. They are not exercising regularly. They have not completed pulmonary rehabilitation in the past. The patient does not cough chronically, and does not produce mucous. They have not had hem optysis since our last appointment. He has not been evaluated for nocturnal oxygen. He does not had symptoms of heartburn or reflux. They have not had symptoms of nasal conges tion, runny nose or post nasal drip. The patient is not certain if he received this year's influenza vaccination. They are up t o date with their Pneumovax. The patient is uncertain regarding whether he is received inhaled medications in the past. There is reference to the medical record to pulmonary evaluation/consultation in [facility] on. Those records are yet to be reviewed. Past Medical History Past Medical History Diagnosis Date Osteoarthritis Osteoarthrosis Dyspnea on exertion Hypertension Vitamin d deficiency Chronic pain Right knee Knee injury Right knee Lower leg fracture left Epigastric hernia Social History: He reports that he quit smoking about 32 years ago. His smoking use included Cigarettes. He has a 105 pack-year smoking history. He has never used smokeless tobacco. He reports that h e drinks about 7 ounces of alcohol per week. He reports that he does not use illicit drugs. Allergies: Allergies Allergen Reactions Salsalate Hives and Rash Medications: Current outpatient prescriptions:acetaminophen (TYLENOL) 325 mg tablet, Take 650 mg by mout h every 4 hours as needed., Disp: , Rfl: ; albuterol (VENTOLIN HFA) 90 mcg/puff inhaler, In [place] 2 puffs into the lungs every 4 hours as needed for Wheezing or Shortness of Breath., Di sp: 1 Inhaler, Rfl: 0; Cholecalciferol (VITAMIN D3) 2000 UNITS CAPS, Take 2,000 Units by mo uth Daily. , Disp: , Rfl: diazepam (VALIUM) 5 mg tablet, Take 5 mg by mouth every 6 hours as needed., Disp: , Rfl: ; HYDROcodone-acetaminophen (NORCO) 5-325 mg per tablet, Take 2 tablets by mouth every 6 hour s as needed. , Disp: , Rfl: ; ibuprofen (ADVIL,MOTRIN) 800 MG tablet, Take 800 mg by mouth every 8 hours as needed. , Disp: , Rfl: ; lisinopril (PRINIVIL, ZESTRIL) 10 mg tablet, Ta ke 10 mg by mouth Daily. , Disp: , Rfl: loperamide (IMODIUM) 2 mg capsule, Take 2 mg by mouth 4 times daily as needed., Disp: , Rfl : ; Magnesium Hydroxide (MILK OF MAGNESIA PO), Take by mouth as needed., Disp: , Rfl: ; M ultiple Vitamins-Minerals (MULTIVITAMIN PO), Take by mouth Daily. , Disp: , Rfl: ; traZOD one (DESYREL) 50 mg tablet, Take 50 mg by mouth nightly., Disp: , Rfl: Immunizations: Immunization History Administered Date(s) Administered INFLUENZA, PRESERVATIVE FREE IM 03/02/2012 Review of Systems Constitutional: Denies fever, chills, sweats and unexpected weight change. Sleep: Denies trouble sleeping, excessive snoring, and daytime sleepiness. Eyes: Denies vision change and eye irritation. ENT: Denies earache, nosebleeds, sore throat, and hoarseness. Resp: See HPI. CV: Denies neck/chest/jaw pain with exertion, palpitations, lightheadedness, syncope, orth opnea, PND and claudication. GI: Denies nausea, vomiting, abdominal pain, diarrhea,melena, and hematochezia. Neurologic: Denies frequent headaches, seizures, numbness or tingling in hands or feet, kayla tigo, and falls. Allergy Denies urticaria and allergic rash. Objective BP 128/78 | Pulse 76 | Ht 1.613 m (5' 3.5") | Wt 81.874 kg (180 lb 8 oz) | BMI 31.47 kg/m2 | SpO2 98% Appearance: Alert, cooperative, no distress, appears stated age. Head: Normocephalic, without obvious abnormality, atraumatic. Eyes: PERRL, conjunctiva/corneas clear. Nose: Nares normal, septum midline, mucosa normal, no drainage or sinus tenderness. Throat: Oral mucosa and tongue are normal. No thrush.no teeth are present Neck: Supple, no JVD Lungs: No accessory muscle use, breath sounds are clear to auscultation bilaterally. No wheezes. No crackles or rhonchi. No dullness to percussion. Chest Wall: No tenderness or deformity. Heart: Regular rate and rhythm. S1, S2 normal. No murmur, rubs or gallops. Extremities: Extremities normal/atraumatic. No cyanosis, clubbing. no edema. Skin: Warm and dry. Lymph nodes: No significant cervical and supraclavicular nodes. Neurologic: Gait normal. No apparent weakness. Data: Exertional oximetry performed 06/14/13. The patient walked 500 feet over 3 minutes. His O2 saturation began in 97% and nadired at 95%. Records from Dr. Redmond were reviewed prior to the patient's appointment. Assessment 1. Dyspnea-Brett Osman is a 67-year-old male who has a 100+ pack year smoking history. Th e patient was last seen in our office in June 2012. At that time her he stated that he could walk over a mile before developing shortness of breath. Pulmonary function test were performed and showed normal spirometry, lung volumes and diffusion. The patient was subsequently seen by Dr. Redmond and noted to be short of breath with minimal exertion. Today her he states that he can only walk 500-1000 feet before developing dyspne a. Exertional oximetry was performed today. No evidence of desaturation is noted. The patien t's most recent chest x-ray was from March 2012. No significant parenchymal or vascular abnormalities were noted. It appears that this patient's shortness of breath has worsened over the last 11 months. N o physical exam abnormalities are appreciated. Today there is no evidence of exertional addi aturation. It remains to be seen whether the patient's chest x-ray or lung function has significantly changed over the interim. Given Brett's prior smoking history it is quite possible that significant obstructive lung disease is present. I suggested a trial of short acting bronchodilator. Total duration the patient's clinic appointment was in excess of 30 minutes. Greater than 50% of the time was spent in counseling related to therapy for obstructive lung disease and further diagnostic studies the patient shortness of breath. Plan 1. Trial of Ventolin 2 puffs as needed for shortness of breath or wheezing. 2. PA and lateral chest x-ray today to further evaluate worsening dyspnea. 3. Spirometry, lung volumes and diffusion capacity with followup. 4. Request records from the patient's prior treating [facility] in [facility]. 5. A copy this dictation will be sent to Dr. Redmond. 6. Pulmonary clinic followup appointment in 2 weeks' time to assess the patient's response to albuterol and to review the above noted studies. CC: Cornelius Munguia documented in this encounter Plan of Treatment + + +--------+ + + | Name | Type | Priori | Associated Diagnoses | Order Schedule | | | | ty | | | + + +--------+ + + | * [facility] ([facility] | Respiratory | [facility]IDA | SOB (shortness of | 1 Occurrences | | Shanell's)Pulmonary | Care | | breath) | starting 06/14/2013 | | Function Testing - | | | | until 06/14/2014 | | AMB Referral | | | | | + + +--------+ + + documented as of this encounter Procedures + +--------+ + + + | Procedure Name | Priori | Date/Time | Associated Diagnosis | Comments | | | ty | | | | + +--------+ + + + | DIAGNOSTIC REPORT - | | 06/14/2013 | | | | EXTERNAL SCAN | | 12:00 AM | | | | | | PST | | | + +--------+ + + + documented in this encounter Results XR Chest PA and Lateral (06/14/2013 3:29 PM PST) + + | Specimen | + + | | + + + + + | Narrative | Performed At | + + + | [facility] | MARY D | | Department [address] | [facility] | | [ rep [address]] [ rep [facility] | | [facility]] Signed | - IMAGING | | | | | Patient Name: BRETT OSMAN Physician: | | | NARCISA. : 1945 Age: 67 Sex: M Unit #: [id number] | | | Exam Date: 06/14/13 Location: [facility] | | | Report #: [id number] Page: | | | %(RAD)RES..mtdd.print.filter("pg") of %(RAD) | | | RES..mtdd.print.filter("tpg") | | | | | | Accession Number: [id number] | | | CHEST X-RAY CLINICAL HISTORY: SHORTNESS OF BREATH. | | | COMPARISON: 04/13/2012. FINDINGS: PA and | | | lateral views of the chest were obtained. There is mild | | | scarring at the bilateral lung bases. The lungs are otherwise clear. | | | The heart is of normal size. There is tortuosity of the aorta. Old | | | right rib fractures are seen. There is deformity of the left | | | clavicle that is consistent with old fracture. There is moderate | | | spondylosis of the thoracic spine. IMPRESSION: | | | 1. NO ACUTE FINDINGS. Dictated Date/Time: 06/14/2013 | | | 15:29 Transcribed Date/Time: 06/14/2013 15:40 | | | Bridge Leverman: <<Signature on File>> | | | | | | Miguelito Block MD06/14/13 1736 <Electronically signed by Miguelito Block | | | MD> Miguelito Block MD 06/14/13 1529 Bridge Leverman: | | | [employer] Guadrdhuttqjz89/16/14 1540 Sivakumar Granda, | | | | | + + + + + + + + | Performing | Address | City/State/Zipcode | Phone Number | | Organization | | | | + + + + + | [facility] [facility] | [address] | [place] | [phone] | | [facility] | | [address] | | | - IMAGING | | | | + + + + + documented in this encounter Visit Diagnoses + + | Diagnosis | + + | SOB (shortness of breath) - Primary Shortness of breath | + + | COPD (chronic obstructive pulmonary disease) (HCC) Chronic airway obstruction, not | | elsewhere classified | + + documented in this encounter
--- OUTSIDE RECORDS SUMMARY | ~2019-10-19 | XMS | Clinical Summary ---
Demographics + + + | Address | [address] | | | [place] [address] | + + + | Home Phone | | + + + | Preferred Language | Unknown | + + + | Marital Status | Single | + + + | Anabaptist Affiliation | Unknown | + + + | Race | Unknown | + + + | Ethnic Group | Unknown | + + + Author + + + | Author | [facility] | | | and [place] | + + + | Organization | [facility] | | | and [place] | + + + | Address | Unknown | + + + | Phone | Unavailable | + + + Support + + + + + | Name | Relationship | Address | Phone | + + + + + | Roxann Hicks | ECON | [address] | | | | | [place], [place] | | | | | [address] | | + + + + + Care Team Providers + +------+ + | Care Oracle Solutions Architect Name | Role | Phone | + +------+ + | Cornelius Munguia PA-C | PCP | | + +------+ + Allergies + + + + + + | Active Allergy | Reactions | Severity | Noted | Comments | | | | | Date | | + + + + + + | Salsalate | Hives, Rash | Low | 04/27/20 | | | | | | 12 | | + + + + + + Medications + + + +---------+------+------+-------+ | Medication | Sig | Dispensed | Refills | Star | End | Statu | | | | | | t | Date | s | | | | | | Date | | | + + + +---------+------+------+-------+ | Cholecalciferol | Take 2,000 Units by | | 0 | | | Activ | | (VITAMIN D3) 2000 | mouth Daily. | | | | | e | | UNITS CAPS | | | | | | | + + + +---------+------+------+-------+ | ibuprofen | Take 800 mg by mouth | | 0 | | | Activ | | (ADVIL,MOTRIN) 800 | every 8 hours as | | | | | e | | MG tablet | needed. | | | | | | + + + +---------+------+------+-------+ | lisinopril | Take 10 mg by mouth | | 0 | | | Activ | | (PRINIVIL, ZESTRIL) | Daily. | | | | | e | | 10 mg tablet | | | | | | | + + + +---------+------+------+-------+ | Multiple | Take by mouth | | 0 | | | Activ | | Vitamins-Minerals | Daily. | | | | | e | | (MULTIVITAMIN PO) | | | | | | | + + + +---------+------+------+-------+ | diazepam (VALIUM) | Take 5 mg by mouth | | 0 | | | Activ | | 5 mg tablet | every 6 hours as | | | | | e | | | needed. | | | | | | + + + +---------+------+------+-------+ | loperamide | Take 2 mg by mouth 4 | | 0 | | | Activ | | (IMODIUM) 2 mg | times daily as | | | | | e | | capsule | needed. | | | | | | + + + +---------+------+------+-------+ | acetaminophen | Take 650 mg by mouth | | 0 | | | Activ | | (TYLENOL) 325 mg | every 4 hours as | | | | | e | | tablet | needed. | | | | | | + + + +---------+------+------+-------+ | Magnesium | Take by mouth as | | 0 | | | Activ | | Hydroxide (MILK OF | needed. | | | | | e | | MAGNESIA PO) | | | | | | | + + + +---------+------+------+-------+ | albuterol | Inhale 2 puffs into | 1 | 0 | 01/2 | | Activ | | (VENTOLIN HFA) 90 | the lungs every 4 | Inhaler | | 3/20 | | e | | mcg/puff | hours as needed for | | | 14 | | | | inhalerIndications: | Wheezing or | | | | | | | SOB (shortness of | Shortness of Breath. | | | | | | | breath) | | | | | | | + + + +---------+------+------+-------+ | | Take 3 mLs by | 100 mL | 2 | 01/3 | | Activ | | albuterol-ipratropiu | nebulization 4 times | | | 0/20 | | e | | m (DUONEB) 2.5-0.5 | daily. | | | 14 | | | | mg/3 mL | | | | | | | | SOLNIndications: | | | | | | | | COPD (chronic | | | | | | | | obstructive | | | | | | | | pulmonary disease) | | | | | | | | ([facility]) | | | | | | | + + + +---------+------+------+-------+ | | Take 1 tablet by | | 0 | | | Activ | | HYDROcodone-acetamin | mouth every 6 hours | | | | | e | | ophen (NORCO) | as needed. | | | | | | | 7.5-325 mg per | | | | | | | | tablet | | | | | | | + + + +---------+------+------+-------+ | calcium-vitamin D | Take 1 tablet by | | 0 | | | Activ | | (OSCAL) 500 mg-200 | mouth Daily. | | | | | e | | units per tablet | | | | | | | + + + +---------+------+------+-------+ | docusate sodium | Take 100 mg by mouth | | 0 | | | Activ | | (COLACE) 100 mg | Daily. | | | | | e | | capsule | | | | | | | + + + +---------+------+------+-------+ | magnesium oxide | Take 400 mg by mouth | | 0 | | | Activ | | (MAG-OX) 400 mg | Daily. | | | | | e | | tablet | | | | | | | + + + +---------+------+------+-------+ Active Problems + + + | Problem | Noted Date | + + + | COPD (chronic obstructive pulmonary disease) | 06/28/2013 | + + + | Knee pain | 04/27/2012 | + + + + + | Overview: Right | + + + + + | Osteoarthritis | 04/27/2012 | + + + | Osteoarthrosis | 04/27/2012 | + + + | Incarcerated epigastric hernia | 04/27/2012 | + + + | SOB (shortness of breath) | 04/27/2012 | + + + Resolved Problems + + + + | Problem | Noted | Resolved | | | Date | Date | + + + + | Incisional hernia | 04/27/20 | | | | 12 | 2 | + + + + Immunizations + + + + | Name | Administration Dates | Next Due | + + + + | INFLUENZA PF 18 Y OR | 02/27/2014, 03/02/2012 | | | >,TRIVALENT | | | | RECOMBINANT | | | + + + + | INFLUENZA PF | 05/31/2014 | | | QUAD(PED/ADOL/ADULT) | | | | ,PSKT or VIAL | | | + + + + | PNEUMOCOCCAL | 05/31/2014 | | | CONJUGATE 13-VALENT | | | | (PCV13) | | | + + + + Family History + + +------+ + | Medical History | Relation | Name | Comments | + + +------+ + | Other (see comment) | Father | | Accident | + + +------+ + | Other (see comment) | Mother | | Accident | + + +------+ + | Stroke | Sister | | | + + +------+ + + +------+ + + | Relation | Name | Status | Comments | + +------+ + + | Father | | | | + +------+ + + | Mother | | | | + +------+ + + | Sister | | | | + +------+ + + Social History + + + [...] recent travel history available. | + + Last Filed Vital Signs + + + [...] + + + | Oxygen Saturation | 95% | 05/31/2014 2:22 PM | | | | | PST [...] | | + + + + + Plan of Treatment + + + + + | Health Maintenance | Due Date | Last Done | Comments | + + + + + | Vaccine: | | | | | Dtap/Tdap/Td (1 - | 8 | | | | Tdap) | | | | + + + + + | Vaccine: Zoster (1 | | | | | of 2) | 7 | | | + + + + + | Vaccine: | | 05/31/2014 | | | Pneumococcal 65+ (2 | 6 | | | | of 2 - PPSV23) | | | | + + + + + | Vaccine: Influenza | | 05/31/2014, 02/27/2014, | | | (Season Ended) | 0 | 03/02/2012 | | + + + + + Results Not on filefrom Last 3 Months Insurance + +--------+ +--------+ +---------+--------+ | Payer | Benefi | Subscriber | Effect | Phone | Address | Type | | | t Plan | ID | nicole | | | | | | / | | Dates | | | | | | Group | | | | | | + +--------+ +--------+ +---------+--------+ | MEDICARE | MEDICA | [id number] | 10/29/19 | [phone] | | Medica | | | RE | | 12-Pre | 5 | | re | | | PART A | | sent | | | | | | AND B | | | | | | + +--------+ +--------+ +---------+--------+ | [place]ID [place] | MEDICA | [id number] | | [phone] | | Med[place] | | | [place] | | 014-Pr | 2 | | id | | | PLUS | | esent | | | | + +--------+ +--------+ +---------+--------+ | [facility] | IHS | [id number] | 04/23/ | | | Indemn | | SERVICE | YELLOW | | 2012-P | | | ity | | | HAWK | | resent | | | | + +--------+ +--------+ +---------+--------+ + +--------+ +--------+ + + | Guarantor Name | Accoun | Relation to | Date | Phone | Billing Address | | | t Type | Patient | of | | | | | | | | | | + +--------+ +--------+ + + | Brett Reis | Person | Self | [birth year] | [address] | | | al/Fam | | 1946 | [phone] | [place] [address] | | | carlin | | | 7 (Home) | | + +--------+ +--------+ + + Advance Directives + + + + + | Type | Date Recorded | Patient | Explanation | | | | Front Office Administrator | | + + + + + | Power of | | | | | Hunter Trapper | | | | + + + + + | Advance | | | | | Directive | | | | + + + + +
--- OUTSIDE RECORDS SUMMARY | ~2019-10-19 | XMS | Encounter Summary ---
Demographics + + + | Address | [address] | | | [place] [address] | + + + | Home Phone | | + + + | Preferred Language | Unknown | + + + | Marital Status | Single | + + + | Methodist Affiliation | Unknown | + + + | Race | Unknown | + + + | Ethnic Group | Unknown | + + + Author + + + | Author | [facility] | | | and [place] | + + + | Organization | [facility] | | | and [place] | + + + | Address | Unknown | + + + | Phone | Unavailable | + + + Support + + + + + | Name | Relationship | Address | Phone | + + + + + | Roxann Hicks | ECON | [address] | | | | | [place] | | | | | [address] | | + + + + + Care Team Providers + +------+ + | Care Prosthetic Lab Technician Name | Role | Phone | + +------+ + | Cornelius Munguia PA-C | PCP | | + +------+ + Reason for Visit + + + | Reason | Comments | + + + | Appointment | follow up | + + + Encounter Details +--------+ + + + + | Date | Type | Department | Care Team | Description | +--------+ + + + + | 11/14/ | Telephone | [facility] [place] | Sivakumar Granda, | Appointment (follow | | 2015 | | PULMONARY [address] | MD [address] | up) | | | | [place], | [place], [place] | | | | | [place] [address] | [address] | | | | | [phone] | | | +--------+ + + + [...]
--- OUTSIDE RECORDS SUMMARY | ~2019-10-19 | XMS | Encounter Summary ---
Demographics + + + | Address | [address] | | | [place] [address] | + + + | Home Phone | | + + + | Preferred Language | Unknown | + + + | Marital Status | Single | + + + | Hinduism Affiliation | Unknown | + + + | Race | Unknown | + + + | Ethnic Group | Unknown | + + + Author + + + | Author | [facility] | | | and [place] | + + + | Organization | [facility] | | | and [place] | + + + | Address | Unknown | + + + | Phone | Unavailable | + + + Support + + + + + | Name | Relationship | Address | Phone | + + + + + | Roxann Hicks | ECON | [address] | | | | | [place] | | | | | [address] | | + + + + + Care Team Providers + +------+ + | Care Sample Examiner Name | Role | Phone | + +------+ + | Cornelius Munguia PA-C | PCP | | + +------+ + Reason for Visit +--------+ + | Reason | Comments | +--------+ + | COPD | | +--------+ + Evaluate & Treat (Routine) +--------+--------+ + + + + | Status | Reason | Specialty | Diagnoses / | Referred By | Referred To | | | | | Procedures | Contact | Contact | +--------+--------+ + + + + | Closed | | Pulmonology | Diagnoses | Nilda, | Jesus Alberto, | | | | | DYSPNEA | Cornelius Mittal, | MD Sivakumar | | | | | Procedures | PA-C [address] | [address] | | | | | [address] | [place] | [place], | | | | | | WAY | [place] [address] | | | | | | [place], | Phone: | | | | | | [place] [address] | [phone] | | | | | | Phone: | Fax: | | | | | | [phone] | [phone] | | | | | | Fax: | | | | | | | [phone] | | +--------+--------+ + + + + Encounter Details +--------+---------+ + + + | Date | Type | Department | Care Team | Description | +--------+---------+ + + + | 03/06/ | Office | [facility] | Sivakumar Granda, | COPD (chronic | | 2014 | Visit | PULMONARY [address] | MD [address] | obstructive | | | | [place], | [place], [place] | pulmonary disease) | | | | [place] [address] | [address] | (Primary Dx); SOB | | | | [phone] | | (shortness of | | | | | | breath) | +--------+---------+ + + + Social History [...] + + + | Blood Pressure | 144/78 | 08/02/2013 12:53 PM | | | | | PST | | + + + + + | Pulse | 71 | 08/02/2013 12:53 PM | | | | | PST | | + + + + + | Temperature | - | - | | + + + + + | Respiratory Rate | - | - | | + + + + + | Oxygen Saturation | 97% | 08/02/2013 12:53 PM | | | | | PST | | + + + + + | Inhaled Oxygen | - | - | | | Concentration | | | | + + + + + | Weight | 84.6 kg (186 lb 6.4 | 08/02/2013 12:53 PM | | | | oz) | PST | | + + + + + | Height | 161.3 cm (5' 3.5") | 08/02/2013 12:53 PM | | | | | PST | | + + + + + | Body Mass Index | 32.5 | 08/02/2013 12:53 PM | | | | | PST | | + + + + + documented in this encounter Patient Instructions Patient Instructions Sivakumar Granda MD - 08/02/2013 1:17 PM PSTOur office nurse will c all [facility] to better understand the dosing of your Douneb. Flu shot next fall. documented in this encounter Progress Notes Sivakumar Granda MD - 08/02/2013 1:06 PM PSTFormatting of this note might be different f rom the original. Pulmonary Follow Up 08/02/2013 HPI Brett Reis is a 67 y.o. male patient of Cornelius Munguia here today for follow up of COPD . Last visit was on 06/28/13. Since their last appointment they feel like their breathing iss ues have been stable. They have not had any acute illnesses. The patient has not required a prednisone taper since our last clinic appointment. They are currently on a daily regimen o f Duoneb QID. Mr. Reis however states that he is not receiving DuoNeb at his current place of residence. Actually notes that he has never received DuoNeb from his caregivers at [facility]. Has Ventolin for prn use but is not requiring. Currently the patient is able to walk 200 yards at their own pace on level ground. They are not exercising regularly. They are not enrolled in cardiac/pulmonary rehabilitation or ot her physical therapy. They have not completed pulmonary rehabilitation in the past. The patient does not cough chronically, and does not produce mucous. They have not had hemo ptysis since our last appointment. He has not been evaluated for nocturnal oxygen. He does not had symptoms of heartburn or reflux. They have not had symptoms of nasal conges tion, runny nose or post nasal drip. The patient has received this year's influenza vaccination. They are not up to date with t heir Pneumovax. The patient states that his ability to ambulate is limited by chronic right knee pain. His right knee is wrapped and is walking with a cane. Past Medical History Past Medical History Diagnosis Date Osteoarthritis Osteoarthrosis Dyspnea on exertion Hypertension Vitamin D deficiency Chronic pain Right knee Knee injury Right knee Lower leg fracture left Epigastric hernia COPD (chronic obstructive pulmonary disease) ([facility]) Social History: He reports that he quit [...] Breath., Di sp: 1 Inhaler, Rfl: 0; albuterol-ipratropium (DUONEB) 2.5-0.5 mg/3 mL SOLN, Take 3 mLs by n ebulization 4 times daily., Disp: 100 mL, Rfl: 2 Cholecalciferol (VITAMIN D3) 2000 UNITS CAPS, Take 2,000 Units by mouth Daily. , Disp: , R fl: ; diazepam (VALIUM) 5 mg tablet, Take 5 mg by mouth every 6 hours as needed., Disp: , R fl: ; HYDROcodone-acetaminophen (NORCO) 7.5-325 mg per tablet, Take 1 tablet by mouth every 6 hours as needed., Disp: , Rfl: ; ibuprofen (ADVIL,MOTRIN) 800 MG tablet, Take 800 mg by mouth every 8 hours as needed. , Disp: , Rfl: lisinopril (PRINIVIL, ZESTRIL) 10 mg tablet, Take 10 mg by mouth Daily. , Disp: , Rfl: ; loperamide (IMODIUM) 2 mg capsule, Take 2 mg by mouth 4 times daily as needed., Disp: , Rfl: ; Magnesium Hydroxide (MILK OF MAGNESIA PO), Take by mouth as needed., Disp: , Rfl: ; Mu ltiple Vitamins-Minerals (MULTIVITAMIN PO), Take by mouth Daily. , Disp: , Rfl: Immunizations: Immunization History Administered [...] Denies urticaria and allergic rash. Objective BP 144/78 | Pulse 71 | Ht 1.613 m (5' 3.5") | Wt 84.55 kg (186 lb 6.4 oz) | BMI 32.50 kg/m2 | SpO2 97% Appearance: Alert, cooperative, no distress, appears stated age. Head: Normocephalic, without obvious abnormality, atraumatic. Eyes: PERRL, conjunctiva/corneas clear. Nose: Nares normal, septum midline, mucosa normal, no drainage or sinus tenderness. Throat: Oral mucosa and tongue are normal. No thrush. Neck: Supple, no JVD Lungs: No accessory [...] nodes. Neurologic: Gait normal. No apparent weakness. Assessment 1. Probable COPD-Mr. Reis is a 67-year-old male with a significant smoking history but F EV1 which is only mildly reduced at 69% of predicted. At the time of our last clinic appointment we attempted to initiate DuoNeb 4 times a day. Records supplied by [facility] indicate that Mr. Reis is receiving DuoNeb 4 times a da y. The patient is adamant that he has never been treated with a nebulizer at [facility]. 2. Dyspnea-likely multifactorial related to a component of COPD and deconditioning from a right knee injury. I suspect that little can be done for the patient's orthopedic issues. Rather our efforts have focused on improving his airflow obstruction. Plan 1. Our office will contact [facility] to determine what is truly happening with respe ct to Mr. Reis nebulizer treatments. 2. Routine pulmonary clinic followup to assess the status of the patient symptoms in 6 mon ths time. 3. Seasonal influenza vaccination fall 2013. CC: Cornelius Munguia documented in this encounter Plan of Treatment Not on filedocumented as of this encounter Visit Diagnoses + + | Diagnosis | + + | COPD (chronic obstructive pulmonary disease) - Primary Chronic airway obstruction, | | not elsewhere classified | + + | SOB (shortness of breath) Shortness of breath | + + documented in this encounter
--- OUTSIDE RECORDS SUMMARY | ~2019-10-19 | XMS | Encounter Summary ---
Demographics + + + | Address | [address] | | | [place] [address] | + + + | Home Phone | | + + + | Preferred Language | Unknown | + + + | Marital Status | Single | + + + | Christianity Affiliation | Unknown | + + + | Race | Unknown | + + + | Ethnic Group | Unknown | + + + Author + + + | Author | [facility] | | | and [place] | + + + | Organization | [facility] | | | and [place] | + + + | Address | Unknown | + + + | Phone | Unavailable | + + + Support + + + + + | Name | Relationship | Address | Phone | + + + + + | Roxann Hicks | ECON | [address] | | | | | [place] | | | | | [address] | | + + + + + Care Team Providers + +------+ + | Care Preparatory Technician Name | Role | Phone | [...] + + | 11/14/ | Telephone | [facility] [place] | Sivakumar Granda, | Appointment (follow | | 2015 | | PULMONARY [address] | MD [address] | up) | | | | [place], | [place], [place] | | | | | [place] [address] | [address] | | | | | [phone] | | | +--------+ + + + [...]
--- OUTSIDE RECORDS SUMMARY | ~2019-10-19 | XMS | Encounter Summary ---
Demographics + + + | Address | [address] | | | [place] [address] | + + + | Home Phone | | + + + | Preferred Language | Unknown | + + + | Marital Status | Single | + + + | Roman Catholic Affiliation | Unknown | + + + | Race | Unknown | + + + | Ethnic Group | Unknown | + + + Author + + + | Author | [facility] | | | and [place] | + + + | Organization | [facility] | | | and [place] | + + + | Address | Unknown | + + + | Phone | Unavailable | + + + Support + + + + + | Name | Relationship | Address | Phone | + + + + + | Roxann Hicks | ECON | [address] | | | | | [place] | | | | | [address] | | + + + + + Care Team Providers + +------+ + | Care Stiff Leg Operator Name | Role | Phone | [...] [address] | | | | | [place], | [place], [place] | | | | | [place] [address] | [address] | | | | | [phone] | | | +--------+ + + + [...]
--- OUTSIDE RECORDS SUMMARY | ~2019-10-19 | XMS | Encounter Summary ---
Demographics + + + | Address | [address] | | | [place] [address] | + + + | Home Phone | | + + + | Preferred Language | Unknown | + + + | Marital Status | Single | + + + | Quaker Affiliation | Unknown | + + + | Race | Unknown | + + + | Ethnic Group | Unknown | + + + Author + + + | Author | [facility] | | | and [place] | + + + | Organization | [facility] | | | and [place] | + + + | Address | Unknown | + + + | Phone | Unavailable | + + + Support + + + + + | Name | Relationship | Address | Phone | + + + + + | Roxann Hicks | ECON | [address] | | | | | [place] | | | | | [address] | | + + + + + Care Team Providers + +------+ + | Care Medical Voucher Clerk Name | Role | Phone | + [...] | (Primary Dx) | | | | [place], | [place], [place] | | | | | [place] [address] | [address] | | | | | [phone] | | | +--------+ + + + [...]
--- OUTSIDE RECORDS SUMMARY | ~2019-10-19 | XMS | Encounter Summary ---
Demographics + + + | Address | [address] | | | [place] [address] | + + + | Home Phone | | + + + | Preferred Language | Unknown | + + + | Marital Status | Single | + + + | Sabianism Affiliation | Unknown | + + + | Race | Unknown | + + + | Ethnic Group | Unknown | + + + Author + + + | Author | [facility] | | | and [place] | + + + | Organization | [facility] | | | and [place] | + + + | Address | Unknown | + + + | Phone | Unavailable | + + + Support + + + + + | Name | Relationship | Address | Phone | + + + + + | Roxann Hicks | ECON | [address] | | | | | [place] | | | | | [address] | | + + + + + Care Team Providers + +------+ + | Care Boiler Tube Reamer Name | Role | Phone | + +------+ + | Cornelius Munguia PA-C | PCP | | + +------+ + Encounter Details +--------+ + + + + | Date | Type | Department | Care Team | Description | +--------+ + + + + | 11/12/ | Hospital | [facility] | Anna, | Pain; Closed head | | 2016 | Encounter | MEDICAL [facility]ENTER | MD [address] | injury, initial | | | | CLINICAL DECISION | [address] | encounter; Facial | | | | [address] | [place] [address] | laceration, initial | | | | [place], [place] | [phone] | encounter; Alcohol | | | | [phone] | | intoxication, | | | | [phone] | | uncomplicated (HCC); | | | [...] Internal Medicine Author Type: Physician Filed: 04/10/16 3968 Date of Service: 04/10/163 Status: Signed Threading Machine Operator: Taylor Willoughby MD (Physician) [facility] Service: Hospitalist Physician Discharge Summary Patient ID: [...] is at baseline. In the ED at [facility] CT of the head there was a concern for a suspected trace traumat ic subarachnoid hemorrhage, therefore [facility]'s neurosurgeon was contacted who recommended dereje ellison to our institution and repeat imaging. Repeated imaging here at [facility] is negative for any acute intra-cranial hemorrhage. Patient will be admitted under the hospital service for further management Hospital Course: The patient was admitted from [facility] for possible head bleed (SAH). Was [...] stable condition. He says he lives in [facility]. Past Medical History: Past Medical History Diagnosis [...] Apr 10 2016 3:38AM Referring Provider Line: [phone] ID: [id number] Discharge Vitals: Filed Vitals: [...] Follow up: MELISSA Ramírez [address] [place] [address] Medication List Notice You have not been [...] 161 Date of Service: 04/10/161614 Status: Signed Threading Machine Operator: Dee Coker RN (Registered Nurse) Patient given [...] 152 Date of Service: 04/10/161524 Status: Signed Threading Machine Operator: Nathan Damon RN (Registered Nurse) GERTRUDE Price called all of Brett's family and friends trying to find him a ride but nobody is av ailable. I called the [place] [employer] transport but they are unavailable. I called [facility] taxi and they will picker tender helper Brett at 1730. Janki Riley RPH - 04/10/2016 6:23 AM PSTFormatting of this note might be different from the or iginal. Progress Notes by Janki Toribio RPH at 04/10/16 0623 Author: Janki Toribio RPH Service: (none) Author Type: Pharmacist Filed: 04/10/16622 Date of Service: 04/10/16622 Status: Signed Threading Machine Operator: Janki Toribio RPH (Pharmacist) Renal Dosing Monitoring: Brett Chato 70 y.o. male Pharmacy dosing for renal function per Dr. Lanier Plan per protocol: Vczd=249db/min Renal adjustments are not necessary Pharmacy will [...] EXTERNAL | | | | performed at [facility];[address] | | LAB | | | | [address];[place], [place] | | | | | | [address] | | | | + + + [...] LAB | | | | performed at [facility] | | | | | | [address];[place], [place] | | | | | | [address] | | | | + + + [...] EXTERNAL | | | | performed at [facility];888 | mmol/L | LAB | | | | [address];[place] | | | | | | [address] | | | | + + + + + + | K | 3.8Comment: SLT | 3.5 - 4.9 | EXTERNAL | | | | HEMOLYSISTesting | mmol/L | LAB | | | | performed at [facility];[address] | | | | | | [address];[place] | | | | | | [address] | | | | + + + + + + | Cl | 111 (H)Comment: Testing | 99 - 109 mmol/L | EXTERNAL | | | | performed at [facility];[address] | | LAB | | | | [address];[place] | | | | | | [address] | | | | + + + + + + | CO2 | 23Comment: Testing | 23 - 32 mmol/L | EXTERNAL | | | | performed at [facility];[address] | | LAB | | | | [address];[place] | | | | | | [address] | | | | + + + + + + | Anion Gap | 14Comment: Testing | 5 - 20 mmol/L | EXTERNAL | | | | performed at [facility];[address] | | LAB | | | | [address];[place] | | | | | | [address] | | | | + + + + + + | Glucose, | 104 (H)Comment: Testing | 65 - 99 mg/dL | EXTERNAL | | | Fasting | performed at [facility];[address] | | LAB | | | | [address];[place] | | | | | | [address] | | | | + + + + + + | BUN | 6 (L)Comment: Testing | 8 - 25 mg/dL | EXTERNAL | | | | performed at [facility];[address] | | LAB | | | | [address];[place] | | | | | | [address] | | | | + + + + + + | Creatinine | 0.63 (L)Comment: Testing | 0.70 - 1.30 | EXTERNAL | | | | performed at [facility];[address] | mg/dL | LAB | | | | [address];[place] | | | | | | [address] | | | | + + + + + + | BUN/Creatin | 9Comment: Testing | | EXTERNAL | | | ine Ratio | performed at [facility];[address] | | LAB | | | | [address];[place] | | | | | | [address] | | | | + + + + + + | Calcium | 7.7 (L)Comment: Testing | 8.5 - 10.5 | EXTERNAL | | | | performed at [facility];[address] | mg/dL | LAB | | | | [address];[place] | | | | | | [address] | | | | + + + [...] | | | | | | at [facility];[address] | | | | | | [address];[place] [address] | | | | + + + [...] Apr 10 2016 3:38AM Referring Provider Line: [phone] ID: | | | 020 | | [...] 2016 3:38AM | | Referring Provider Line: [phone] ID: [id number] | | | |No space-occupying [...] | | | Electronically signed by Chester Arambula MD on Apr 10 2016 3:38AM Referring Provider Line: [phone] ID: [id number] | + + PTT (04/10/2016 2:42 AM PST) + + + + + + | Component | Value | Ref Range | Performed | Pathologist | | | | | At | Signature | + + + + + + | aPTT, | 27Comment: Testing | 23 - 32 seconds | EXTERNAL | | | Patient | performed at [facility];[address] | | LAB | | | | [address];[place], [place] | | | | | | [address] | | | | + + + [...] | | | | | performed at [facility];[address] | | | | | | [address];[place], [place] | | | | | | [address] | | | | + + + [...] EXTERNAL | | | | performed at [facility];[address] | K/uL | LAB | | | | [address];[place] | | | | | | [address] | | | | + + + + + + | Red Blood | 3.83 (L)Comment: Testing | 4.20 - 5.70 | EXTERNAL | | | Cells | performed at [facility];[address] | M/uL | LAB | | | Counted | [address];[place] | | | | | | [address] | | | | + + + + + + | Hemoglobin | 12.8 (L)Comment: Testing | 13.2 - 17.0 | EXTERNAL | | | | performed at [facility];[address] | g/dL | LAB | | | | [address];[place] | | | | | | [address] | | | | + + + + + + | Hematocrit, | 37.1 (L)Comment: Testing | 39.0 - 50.0 % | EXTERNAL | | | POC | performed at [facility];[address] | | LAB | | | | [address];[place] | | | | | | [address] | | | | + + + + + + | MCV | 97.0Comment: Testing | 80.0 - 100.0 fl | EXTERNAL | | | | performed at [facility];[address] | | LAB | | | | [address];[place] | | | | | | [address] | | | | + + + + + + | MCH | 33.5Comment: Testing | 27.0 - 34.0 pg | EXTERNAL | | | | performed at [facility];[address] | | LAB | | | | [address];[place] | | | | | | [address] | | | | + + + + + + | MCHC | 34.6Comment: Testing | 32.0 - 35.5 | EXTERNAL | | | | performed at [facility];[address] | g/dL | LAB | | | | [address];[place] | | | | | | [address] | | | | + + + + + + | RDW-CV | 44.2Comment: Testing | 37 - 53 fl | EXTERNAL | | | | performed at [facility];[address] | | LAB | | | | [address];[place] | | | | | | [address] | | | | + + + + + + | Platelet | 305Comment: Testing | 150 - 400 K/uL | EXTERNAL | | | Count | performed at [facility];[address] | | LAB | | | Plasma | [address];[place] | | | | | | [address] | | | | + + + + + + | MPV | 6.6Comment: Testing | fl | EXTERNAL | | | | performed at [facility];[address] | | LAB | | | | [address];[place] | | | | | | [address] | | | | + + + + + + | Differentia | AUTOMATEDComment: | | EXTERNAL | | | l Type | Testing performed at | | LAB | | | | [facility];[address];[place] [address] | | | | + + + + + + | % Segmented | 49.98Comment: Testing | % | EXTERNAL | | | | performed at [facility];[address] | | LAB | | | Neutrophils | [address];[place] | | | | | | [address] | | | | + + + + + + | % | 24.49Comment: Testing | % | EXTERNAL | | | Lymphocytes | performed at [facility];[address] | | LAB | | | | [address];[place] | | | | | | [address] | | | | + + + + + + | % Monocytes | 5.64Comment: Testing | % | EXTERNAL | | | | performed at [facility];[address] | | LAB | | | | [address];[place] | | | | | | [address] | | | | + + + + + + | % | 18.98Comment: Testing | % | EXTERNAL | | | Eosinophils | performed at [facility];[address] | | LAB | | | | [address];[place] | | | | | | [address] | | | | + + + + + + | % Basophils | 0.91Comment: Testing | % | EXTERNAL | | | | performed at [facility];[address] | | LAB | | | | [address];[place] | | | | | | [address] | | | | + + + + + + | Absolute | 3.32Comment: Testing | 1.90 - 7.40 | EXTERNAL | | | Segmented | performed at [facility];[address] | K/uL | LAB | | | Neutrophils | [address];[place] | | | | | | [address] | | | | + + + + + + | Absolute | 1.63Comment: Testing | 1.00 - 3.90 | EXTERNAL | | | Lymphocytes | performed at [facility];[address] | K/uL | LAB | | | | [address];[place] | | | | | | [address] | | | | + + + + + + | Absolute | 0.37Comment: Testing | 0.00 - 0.80 | EXTERNAL | | | Monocytes | performed at [facility];[address] | K/uL | LAB | | | | [address];[place] | | | | | | [address] | | | | + + + + + + | Absolute | 1.26 (H)Comment: Testing | 0.00 - 0.50 | EXTERNAL | | | Eosinophils | performed at [facility];[address] | K/uL | LAB | | | | [address];[place] | | | | | | [address] | | | | + + + + + + | Absolute | 0.06Comment: Testing | 0.00 - 0.10 | EXTERNAL | | | Basophils | performed at [facility];[address] | K/uL | LAB | | | | [address];[place] | | | | | | [address] | | | | + + + [...] | | | Alcohol | performed at [facility];[address] | | LAB | | | | [address];[place], [place] | | | | | | [address] | | | | + + + [...] EXTERNAL | | | | performed at [facility];[address] | mmol/L | LAB | | | | [address];[place] | | | | | | [address] | | | | + + + + + + | K | 3.3 (L)Comment: Testing | 3.5 - 4.9 | EXTERNAL | | | | performed at [facility];[address] | mmol/L | LAB | | | | [address];[place] | | | | | | [address] | | | | + + + + + + | Cl | 111 (H)Comment: Testing | 99 - 109 mmol/L | EXTERNAL | | | | performed at [facility];[address] | | LAB | | | | [address];[place] | | | | | | [address] | | | | + + + + + + | CO2 | 21 (L)Comment: Testing | 23 - 32 mmol/L | EXTERNAL | | | | performed at [facility];[address] | | LAB | | | | [address];[place] | | | | | | [address] | | | | + + + + + + | Anion Gap | 15Comment: Testing | 5 - 20 mmol/L | EXTERNAL | | | | performed at [facility];[address] | | LAB | | | | [address];[place] | | | | | | [address] | | | | + + + + + + | Glucose, | 110 (H)Comment: Testing | 65 - 99 mg/dL | EXTERNAL | | | Fasting | performed at [facility];[address] | | LAB | | | | [address];[place] | | | | | | [address] | | | | + + + + + + | BUN | 7 (L)Comment: Testing | 8 - 25 mg/dL | EXTERNAL | | | | performed at [facility];[address] | | LAB | | | | [address];[place] | | | | | | [address] | | | | + + + + + + | Creatinine | 0.61 (L)Comment: Testing | 0.70 - 1.30 | EXTERNAL | | | | performed at [facility];[address] | mg/dL | LAB | | | | [address];[place] | | | | | | [address] | | | | + + + + + + | BUN/Creatin | 11Comment: Testing | | EXTERNAL | | | ine Ratio | performed at [facility];[address] | | LAB | | | | [address];[place] | | | | | | [address] | | | | + + + + + + | Calcium | 7.6 (L)Comment: Testing | 8.5 - 10.5 | EXTERNAL | | | | performed at [facility];[address] | mg/dL | LAB | | | | [address];[place] | | | | | | [address] | | | | + + + [...] | | | | | | at [facility];[address] [place] [address] | | | | | | [facility];[place] [address] | | | | + + + [...] | | | Screen, | performed at [facility];[address] | | | | | UA, POC | [address] [facility];[place], [place] | | | | | | [address] | | | | + + + + + + | Barbiturate | NEGATIVEComment: | | EXTERNAL | | | s Screen, | Positive cutoff for | | LAB | | | Urine | MARGUERITE = 200 ng/mLTesting | | | | | | performed at [facility];[address] | | | | | | [address];[place] | | | | | | [address] | | | | + + + + + + | Benzodiazep | NEGATIVEComment: | | EXTERNAL | | | kortney | Positive cutoff for | | LAB | | | Screen, | BENZO = 200 ng/mLTesting | | | | | Urine | performed at [facility];[address] | | | | | | [address];[place] | | | | | | [address] | | | | + + + + + + | Cocaine | NEGATIVEComment: | | EXTERNAL | | | | Positive cutoff for | | LAB | | | | LAMAR = 300 ng/mLTesting | | | | | | performed at [facility];[address] | | | | | | [address];[place] | | | | | | [address] | | | | + + + + + + | Methadone | NEGATIVEComment: | | EXTERNAL | | | | Positive cutoff for | | LAB | | | | MTD = 300 ng/mLTesting | | | | | | performed at [facility];[address] | | | | | | [address];[place] | | | | | | [address] | | | | + + + + + + | Opiates | NEGATIVEComment: | | EXTERNAL | | | | Positive cutoff for | | LAB | | | | OPI = 300 ng/mLTesting | | | | | | performed at [facility];[address] | | | | | | [address];[place] | | | | | | [address] | | | | + + + + + + | PCP | NEGATIVEComment: | | EXTERNAL | | | | Positive cutoff for | | LAB | | | | PCP = 25 ng/mLTesting | | | | | | performed at [facility];[address] | | | | | | [address];[place] | | | | | | [address] | | | | + + + [...] | | | | | performed at [facility] | | | | | | [facility];[place], [place] | | | | | | [address] | | | | + + + [...]
--- OUTSIDE RECORDS SUMMARY | ~2019-10-19 | XMS | Encounter Summary ---
Demographics + + + | Address | [address] | | | [place] [address] | + + + | Home Phone | | + + + | Preferred Language | Unknown | + + + | Marital Status | Single | + + + | Yarsani Affiliation | Unknown | + + + | Race | Unknown | + + + | Ethnic Group | Unknown | + + + Author + + + | Author | [facility] | | | and [place] | + + + | Organization | [facility] | | | and [place] | + + + | Address | Unknown | + + + | Phone | Unavailable | + + + Support + + + + + | Name | Relationship | Address | Phone | + + + + + | Roxann Hicks | ECON | [address] | | | | | [place] | | | | | [address] | | + + + + + Care Team Providers + +------+ + | Care Evp Marketing Name | Role | Phone | + [...] | | | diseases of | PA-C [address] | [address] | | | | | lung, not | [place] | [place], | | | | | elsewhere | WAY | [place] [address] | | | | | classified | [place], | Phone: | | | | | Procedures | [place] [address] | [phone] | | | | | [place] OFFICE | Phone: | Fax: | | | | | OUTPATIENT | [phone] | [phone] | | | | | VISIT 25 | Fax: | | | | | | MINUTES | [phone] | | +--------+--------+ + + + + Encounter Details +--------+---------+ + + + | Date | Type | Department | Care Team | Description | +--------+---------+ + + + | 07/11/ | Office | [facility] | Jesus Alberto Sivakumar, | Pre-op chest exam | | 2012 | Visit | PULMONARY [address] | MD [address] | (Primary Dx) | | | | [place], | [place], [place] | | | | | [place] [address] | [address] | | | | | [phone] | | | +--------+---------+ + + + [...] + + + | Blood Pressure | 110/60 | 07/11/2012 1:56 PM | | | | | PST | | + + + + + | Pulse | 61 | 07/11/2012 1:56 PM | | | | | PST | | + + + + + | Temperature | - | - | | + + + + + | Respiratory Rate | - | - | | + + + + + | Oxygen Saturation | 98% | 07/11/2012 1:56 PM | | | | | PST | | + + + + + | Inhaled Oxygen | - | - | | | Concentration | | | | + + + + + | Weight | 81.4 kg (179 lb 8 | 07/11/2012 1:56 PM | | | | oz) | PST | | + + + + + | Height | 161.3 cm (5' 3.5") | 07/11/2012 1:56 PM | | | | | PST | | + + + + + | Body Mass Index | 31.29 | 07/11/2012 1:56 PM | | | | | PST | | + + + + + documented in this encounter Patient Instructions Patient Instructions Sivakumar Granda MD - 07/11/2012 2:14 PM PSTPlease call if any pulm onary symptoms develop. We will send a copy of your lung function to Cornelius Munguia documented in this encounter Progress Notes Sivakumar Granda MD - 07/11/2012 2:05 PM PSTFormatting of this note might be different f rom the original. Pulmonary Follow Up HPI Brett Reis is a 66 y.o. male patient of Cornelius Munguia here today for follow up of poss ible COPD. The patient hopes to have a hernia surgery in the near future. Last visit was in 05/02/12. Since their last visit he feels like he has been doing "pretty good". They have not had any acute illnesses. They are currently on no regimen for lung dis ease. Currently they are able to walk 1.0-1.25 miles at their own pace on level ground. They are exercising regularly via walking daily. [facility]. They [facility] not [facility]. He does not cough chronically, and does not produce mucous. They have not had hemoptysis. He has not been evaluated for nocturnal oxygen and does not use it. He does not had symptoms of heartburn or reflux. They have not had symptoms of nasal conges tion, runny nose or post nasal drip. For unclear reasons. Pulmonary function tests were not performed prior to her appointment today. Past Medical History Past Medical History Diagnosis Date Osteoarthritis Osteoarthrosis Dyspnea on exertion Hypertension Vitamin d deficiency Chronic pain Right knee Knee injury Right knee Lower leg fracture left Epigastric hernia Social History: He reports that he quit smoking about 31 years ago. His smoking use included Cigarettes. [...] irritation. ENT: Denies earache, tinnitus, decreased hearing, nosebleeds, sore throat, and hoarseness. Resp: See HPI. CV: Denies neck/chest/jaw pain with exertion, palpitations, lightheadedness, syncope, dysp christel on exertion, orthopnea, PND, peripheral edema, and claudication. GI: Denies trouble swallowing, nausea, vomiting, abdominal pain, diarrhea, constipation,m audrey, and hematochezia. Neurologic: Denies frequent headaches, seizures, tremors, numbness or tingling in hands or feet, vertigo, and fall or difficulty walking in past 6 months. Allergy Denies urticaria, allergic rash, hay fever. Objective BP 110/60 | Pulse 61 | Ht 1.613 m (5' 3.5") | Wt 81.421 kg (179 lb 8 oz) | BMI 31.29 kg/m2 | SpO2 98% Appearance: Alert, cooperative, no distress, appears stated age Head: Normocephalic, without obvious abnormality, atraumatic Eyes: PERRL, conjunctiva/corneas clear Nose: Nares normal, septum midline, mucosa normal, no drainage or sinus tenderness Throat: Lips, mucosa, and tongue normal; Neck: Supple, symmetrical, no JVD Lungs: No accessory muscle use, breath sounds are clear to auscultation bilaterally, no w heezes, crackles or rhonchi. No dullness to percussion. Chest Wall: No tenderness or deformity Heart: Regular rate and rhythm, S1, S2 normal, no murmur, rub or gallop Extremities: Extremities normal, atraumatic, no cyanosis, clubbing, or edema Skin: Warm and dry Lymph nodes: Cervical and supraclavicular nodes normal Neurologic: Gait normal Assessment 1. Possible obstructive lung disease-Brett Reis is a 66-year-old prior smoker who initial ly presented in April 2012 as part of a preoperative pulmonary evaluation. Though the pa tient has 100+ pack year smoking history he has not used tobacco since 1981. Evidence of si gnificant obstructive lung disease is not noted on exam. There is only mild evidence of air flow obstruction on prior chest x-rays. Pulmonary function tests and exertional oximetry have been ordered but not yet performed. I hope to have the studies obtained prior to Brett's departure today. A copy of the report will be forwarded to Cornelius Munguia. It is difficult to know if therapy for obstructive lung disease should be prescribed withou t pulmonary function testing given the paucity of symptoms. Pulmonary function tests are al so needed to comment on the patient's preoperative pulmonary risk. Plan 1. Spirometry with and without bronchodilators, lung volumes and diffusion capacity today. 2. Exertional oximetry. 3. A copy of this dictation and his pulmonary function tests will be forwarded to Cornelius girard. 4. Pulmonary clinic followup when necessary. CC: Cornelius Munguia documented in this encounter Plan of Treatment + + +--------+ + + | Name | Type | Priori | Associated Diagnoses | Order Schedule | | | | ty | | | + + +--------+ + + | Pulmonary Fx Tests | Respiratory | [facility] | Pre-op chest exam | 1 Occurrences | | (Hospital Performed) | Care | | | starting 07/11/2012 | | | | | | until 07/11/2013 | + + +--------+ + + documented as of this encounter Visit Diagnoses + + | Diagnosis | + + | Pre-op chest exam - Primary Pre-operative respiratory examination | + + documented in this encounter
--- OUTSIDE RECORDS SUMMARY | ~2019-10-19 | XMS | Encounter Summary ---
Demographics + + + | Address | [address] | | | [place] [address] | + + + | Home Phone | | + + + | Preferred Language | Unknown | + + + | Marital Status | Single | + + + | Moravian Affiliation | Unknown | + + + | Race | Unknown | + + + | Ethnic Group | Unknown | + + + Author + + + | Author | [facility] | | | and [place] | + + + | Organization | [facility] | | | and [place] | + + + | Address | Unknown | + + + | Phone | Unavailable | + + + Support + + + + + | Name | Relationship | Address | Phone | + + + + + | Roxann Hicks | ECON | [address] | | | | | [place] | | | | | [address] | | + + + + + Care Team Providers + +------+ + | Care Mac Artist Name | Role | Phone | + [...] + + + | Closed | | Pulmonary | Diagnoses | Nilda, | Jesus Alberto, | | | | Disease / | Chronic | Cornelius Mittal, | MD Sivakumar | | | | Pulmonology | airway | PA-C [address] | [address] | | | | | obstruction, | [place] | [place], | | | | | not | WAY | [place] [address] | | | | | elsewhere | [place], | Phone: | | | | | classified | [place] [address] | [phone] | | | | | Procedures | Phone: | Fax: | | | | | [place] OFFICE | [phone] | [phone] | | | | | OUTPATIENT | Fax: | | | | | | VISIT 25 | [phone] | | | | | | MINUTES | | | +--------+--------+ + + + + Encounter Details +--------+---------+ + + + | Date | Type | Department | Care Team | Description | +--------+---------+ + + + | 05/31/ | Office | [facility] | Sivakumar Granda, | COPD, mild (HCC) | | 2015 | Visit | PULMONARY [address] | MD [address] | (Primary Dx); Needs | | | | [place], | [place], [place] | flu shot; Need for | | | | [place] [address] | [address] | vaccination for | | | | [phone] | | Strep pneumoniae | +--------+---------+ + + + Social History [...] + + + | Blood Pressure | 142/68 | 05/31/2014 2:22 PM | | | | | PST | | + + + + + | Pulse | 78 | 05/31/2014 2:22 PM | | | [...] + + + + | Weight | 83.7 kg (184 lb 8 | 05/31/2014 2:22 PM | | | | oz) | PST | | + + + + + | Height | 161.3 cm (5' 3.5") | 05/31/2014 2:22 PM | | | | | PST | | + + + + + | Body Mass Index | 32.17 | 05/31/2014 2:22 PM | | | | | PST | | + + + + + documented in this encounter Patient Instructions Patient Instructions Sivakumar Granda MD - 05/31/2014 2:46 PM PST Please make sure that you are getting the Duoneb treatments four times a day and that you h ave a Ventolin inhaler to use as needed when away from home. COPD: Using Inhalers Some COPD medications are taken using a device called an inhaler. The inhaler helps you ernst e a measured dose of medication into your lungs. Not all inhalers work the same way. Have yo health care provider show you how to use and care for the type of inhaler you re given. Using Metered-Dose Inhalers (MDIs) with Spacers Breathe in Breathe out Metered-dose inhalers use a fine spray to dispense medication. You may be asked to use a sp acer (holding tube) with your inhaler. The spacer helps make sure all the medication you nee d goes to your lungs. 1. Remove the caps from the inhaler and spacer. Shake the inhaler well and attach the space r. If the inhaler is being used for the first time or has not been used in a while, prime it as directed by its maker. 2. Breathe out normally. Put the spacer between your teeth and close your lips tightly arou nd it. Keep your chin up. 3. [place] 1 puff into the spacer by pressing down on the inhaler. Then slowly breathe in as deeply as you can. This should take3 to5 seconds. (If you breathe too quickly, you may h ear a whistling sound in the spacer.) 4. Take the spacer out of your mouth. Hold your breath for a count of 10 (if possible). The n slowly breathe out. If a second dose is prescribed, wait at least 30 seconds before taking the next puff. Using MDIs Without Spacers Inhalers work best with spacers. But if you don t have your spacer with you, these tips w ill help. 1. Shake the inhaler and remove the cap. Breathe out through your mouth. 2. Put the inhaler mouthpiece in your mouth and close your lips tightly around it. (Or, if told to do so by your health care provider, hold the inhaler 1 to 2 inches from your mouth.) 3. Keep your chin up. [place] 1 puff by pressing down on the inhaler while breathing in deepl y through your mouth for about 5 seconds. Hold your breath for a count of 10. Then breathe o ut slowly. Using Dry-Powder Inhalers (DPIs) Some inhalers use tiny grains of powder to dispense medication. These don t require space rs. They often have counters that track how many doses you use. Dry-powder inhalers don t all work the same way. Be sure you know how to use yours properly. 1. Load the prescribed dose of medication by following the instructions that come with the inhaler. 2. Breathe out normally, holding the inhaler away from your mouth. Hold your chin up. 3. Put the mouthpiece between your lips. Breathe in quickly and deeply through the inhaler not through your nose. You may not feel or taste the medication as you breathe in. This is normal. 4. Take the mouthpiece out of your mouth. Hold your breath for a count of 10 (if possible). 5. Breathe out slowly but not through the inhaler. Moisture from your breath can make the powder stick inside the inhaler. Also, be sure to close the inhaler and store it in a dry p lace. The [employer]. [address] [place] [address]. All righ ts reserved. This information is not intended as a substitute for professional medical care. Always follow your healthcare professional's instructions. documented in this encounter Progress Notes Sivakumar Granda MD - 05/31/2014 2:33 PM PSTFormatting of this note might be different f rom the original. Pulmonary Follow Up 05/31/2014 HPI Brett Reis is a 68 y.o. male patient of Cornelius Munguia here today for follow up of Gold Stage II COPD. The last pulmonary clinic visit was on 08/02/13. Since their last appointment they feel like their breathing issues have been stable. They have not had any acute pulmonary illnesses. T he patient has not required a prednisone taper since our last clinic appointment. Likewise Brett Reis has not required antibiotics for a COPD exacerbation since our last clinic ap pointment. They are currently on a daily regimen scheduled bronchodilators for their COPD. The patien t should be using DuoNeb 4 times a day as scheduled fashion but it sounds like his only usin g it once a day in the morning. They do not feel like this medication regimen is controllin g their symptoms. Brett denies having albuterol via metered-dose inhaler to use. Currently the patient is able to walk several miles at their own pace on level ground befor e developing dyspnea. They are exercising regularly. Their exercise consists of walking from [place] to [place]. They are not enrolled in cardiac/pulmonary rehabilitation. They have not completed pulmonary rehabilitation in the past. The patient does not cough chronically, and does not produce mucous. They have not had hem optysis since our last appointment. He has been evaluated for nocturnal oxygen and does not require it's use. They have not reported recent symptoms of nasal congestion, runny nose or post nasal drip. The patient have not received this year's influenza vaccination. They are not up to date w ith their Pneumovax. Past Medical History Past Medical History Diagnosis Date Osteoarthritis Osteoarthrosis Dyspnea on exertion Hypertension Vitamin D deficiency Chronic pain Right knee Knee injury Right knee Lower leg fracture left Epigastric hernia COPD (chronic obstructive pulmonary disease) (HCC) FEV1 69% of predicted Social History: He reports that he quit smoking about 33 years ago. His smoking use included Cigarettes. [...] times daily., Disp: 100 mL, Rfl: 2 calcium-vitamin D (OSCAL) 500 mg-200 units per tablet, Take 1 tablet by mouth Daily., Disp: , Rfl: ; Cholecalciferol (VITAMIN D3) 2000 UNITS CAPS, Take 2,000 Units by mouth Daily. , Disp: , Rfl: ; diazepam (VALIUM) 5 mg tablet, Take 5 mg by mouth every 6 hours as needed., Disp: , Rfl: ; docusate sodium (COLACE) 100 mg capsule, Take 100 mg by mouth Daily., Disp: , Rfl: HYDROcodone-acetaminophen (NORCO) 7.5-325 mg per tablet, Take 1 tablet by mouth every 6 betsy rs as needed., Disp: , Rfl: ; ibuprofen (ADVIL,MOTRIN) 800 MG tablet, Take 800 mg by mouth every 8 hours as needed. , Disp: , Rfl: ; lisinopril (PRINIVIL, ZESTRIL) 10 mg tablet, Ernst e 10 mg by mouth Daily. , Disp: , Rfl: ; loperamide (IMODIUM) 2 mg capsule, Take 2 mg by m outh 4 times daily as needed., Disp: , Rfl: Magnesium Hydroxide (MILK OF MAGNESIA PO), Take by mouth as needed., Disp: , Rfl: ; magne sium oxide (MAG-OX) 400 mg tablet, Take 400 mg by mouth Daily., Disp: , Rfl: ; Multiple Vit amins-Minerals (MULTIVITAMIN PO), Take by mouth Daily. , Disp: , Rfl: Immunizations: Immunization History Administered Date(s) Administered TRIVALENT INFLUENZA, PRESERATIVE FREE (PED/ADOL/ADULT) 03/02/2012 Review of Systems Constitutional: Denies fever, [...] Denies urticaria and allergic rash. Objective BP 142/68 | Pulse 78 | Ht 1.613 m (5' 3.5") | Wt 83.689 kg (184 lb 8 oz) | BMI 32.17 kg/m2 | SpO2 95% Appearance: Alert, cooperative, no distress, appears stated [...] Gait normal. No apparent weakness. Assessment 1. COPD-Gold stage II. No COPD exacerbations over the last 6 months. For unclear reasons the patient is not receiving his DuoNeb 4 times a day. Rather Mr. Reis reports only recei ving his nebulizer once a day. The patient should have an albuterol metered-dose inhaler to use when he is away from his r man [facility]. Mr. Reis is in need of a seasonal influenza vaccination and a Prevnar 13. Plan 1. Seasonal influenza vaccination and Prevnar 13. 2. I have requested that the patient's residence provide DuoNeb 4 times a day. 3. A prescription for Ventolin 2 puffs inhaled up to every 4 hours shortness of breath has been provided. 4. Pulmonary clinic followup appointment in 6 months time. CC: Cornelius Munguia documented in this encounter Plan of Treatment Not on filedocumented as of this encounter Visit Diagnoses + + | Diagnosis | + + | COPD, mild (HCC) - Primary Chronic airway obstruction, not elsewhere classified | + + | Needs flu shot Need for prophylactic vaccination and inoculation against influenza | + + | Need for vaccination for Strep pneumoniae Need for prophylactic vaccination against | | streptococcus pneumoniae (pneumococcus) | + + documented in this encounter
--- OUTSIDE RECORDS SUMMARY | ~2019-10-19 | XMS | Encounter Summary ---
Demographics + + + | Address | [address] | | | [place] [address] | + + + | Home Phone | | + + + | Preferred Language | Unknown | + + + | Marital Status | Single | + + + | Pentecostalism Affiliation | Unknown | + + + | Race | Unknown | + + + | Ethnic Group | Unknown | + + + Author + + + | Author | [facility] | | | and [place] | + + + | Organization | [facility] | | | and [place] | + + + | Address | Unknown | + + + | Phone | Unavailable | + + + Support + + + + + | Name | Relationship | Address | Phone | + + + + + | Roxann Hicks | ECON | [address] | | | | | [place] | | | | | [address] | | + + + + + Care Team Providers + +------+ + | Care Learning Disabilities Resource Teacher Name | Role | Phone | + +------+ + | Cornelius Munguia PA-C | PCP | | + +------+ + Encounter Details +--------+ + + + + | Date | Type | Department | Care Team | Description | +--------+ + + + + | 06/28/ | Hospital | [facility] | Sivakumar Granda, | | | 2013 | Encounter | MED CTR GENERIC OP | MD [address] | | | | | CONV DEPT [address] | [place], [place] | | | | | [place], | [address] | | | | | [place] [address] | | | | | | [phone] | | | +--------+ + + + [...] | | | | | | | ([facility]) | | | | | | + [...]
--- OUTSIDE RECORDS SUMMARY | ~2019-10-19 | XMS | Encounter Summary ---
Demographics + + + | Address | [address] | | | [place] [address] | + + + | Home Phone | | + + + | Preferred Language | Unknown | + + + | Marital Status | Single | + + + | Anabaptist Affiliation | Unknown | + + + | Race | Unknown | + + + | Ethnic Group | Unknown | + + + Author + + + | Author | [facility] | | | and [place] | + + + | Organization | [facility] | | | and [place] | + + + | Address | Unknown | + + + | Phone | Unavailable | + + + Support + + + + + | Name | Relationship | Address | Phone | + + + + + | Roxann Hicks | ECON | [address] | | | | | [place] | | | | | [address] | | + + + + + Care Team Providers + +------+ + | Care Quality Control Industrial Engineer Name | Role | Phone | + +------+ + | Cornelius Munguia PA-C | PCP | | + +------+ + Encounter Details +--------+ + + + + | Date | Type | Department | Care Team | Description | +--------+ + + + + | 06/21/ | Orders Only | [facility] [place] | Charley Muñoz, | SOB (shortness of | | 2013 | | PULMONARY [address] | RN | breath) (Primary Dx) | | | | [address] [place], | | | | | | [place] [address] | | | | | | [phone] | | | +--------+ + + + [...] Primary Shortness of breath | + + documented in this encounter"
--- OUTSIDE RECORDS SUMMARY | ~2019-10-19 | XMS | Encounter Summary ---
Demographics + + + | Address | [address] | | | [place] [address] | + + + | Home Phone | | + + + | Preferred Language | Unknown | + + + | Marital Status | Single | + + + | Taoism Affiliation | Unknown | + + + | Race | Unknown | + + + | Ethnic Group | Unknown | + + + Author + + + | Author | [facility] | | | and [place] | + + + | Organization | [facility] | | | and [place] | + + + | Address | Unknown | + + + | Phone | Unavailable | + + + Support + + + + + | Name | Relationship | Address | Phone | + + + + + | Roxann Hicks | ECON | [address] | | | | | [place] | | | | | [address] | | + + + + + Care Team Providers + +------+ + | Care Electronic Page Makeup System Operator Name | Role | Phone | [...] | | Pulmonology | airway | PA-C [address] | [address] | | | | | obstruction, | [place] | [place], | | | | | not | WAY | [place] [address] | | | | | elsewhere | [place], | Phone: | | | | | classified | [place] [address] | [phone] | | | | | Procedures | Phone: | Fax: | | | | | [place] OFFICE | [phone] | [phone] | | | | | OUTPATIENT | Fax: | | | | | | VISIT 25 | [phone] | | | | | | MINUTES | | | +--------+--------+ + + + + Encounter Details +--------+---------+ + + + | Date | Type | Department | Care Team | Description | +--------+---------+ + + + | 05/31/ | Office | [facility] [place] | Sivakumar Granda, | COPD, mild (HCC) | | 2015 | Visit | PULMONARY [address] | MD [address] | (Primary Dx); Needs | | | | [place], | [place], [place] | flu shot; Need for | | | | [place] [address] | [address] | vaccination for | | | | [phone] | | Strep pneumoniae | +--------+---------+ + [...] nd it. Keep your chin up. 3. [place] 1 puff into the spacer by pressing [...] your mouth.) 3. Keep your chin up. [place] 1 puff by pressing down on the [...] it in a dry p lace. The [employer]. [address] [place] [address]. All righ ts reserved. This information is [...] regularly. Their exercise consists of walking from [place] to [place]. They are not enrolled in cardiac/pulmonary rehabilitation. [...] when he is away from his r [facility]. Mr. Reis is in need of [...]
--- OUTSIDE RECORDS SUMMARY | ~2019-10-19 | XMS | Encounter Summary ---
Demographics + + + | Address | [address] | | | [place] [address] | + + + | Home Phone | | + + + | Preferred Language | Unknown | + + + | Marital Status | Single | + + + | Anglican Affiliation | Unknown | + + + | Race | Unknown | + + + | Ethnic Group | Unknown | + + + Author + + + | Author | [facility] | | | and [place] | + + + | Organization | [facility] | | | and [place] | + + + | Address | Unknown | + + + | Phone | Unavailable | + + + Support + + + + + | Name | Relationship | Address | Phone | + + + + + | Roxann Hicks | ECON | [address] | | | | | [place] | | | | | [address] | | + + + + + Care Team Providers + +------+ + | Care Electrical Linesworker Name | Role | Phone | + [...] | | | | Procedures | PA-C [address] | [address] | | | | | EVAL & TREAT | [place] | [place], | | | | | | WAY | [place] [address] | | | | | | [place], | Phone: | | | | | | [place] [address] | [phone] | | | | | | Phone: | Fax: | | | | | | [phone] | [phone] | | | | | | Fax: | | | | | | | [phone] | | +--------+--------+ + + + + Encounter Details +--------+---------+ + + + | Date | Type | Department | Care Team | Description | +--------+---------+ + + + | 03/06/ | Office | [facility] | Sivakumar Granda, | COPD (chronic | | 2014 | Visit | PULMONARY [address] | MD [address] | obstructive | | | | [place], | [place], [place] | pulmonary disease) | | | | [place] [address] | [address] | (Primary Dx); SOB | | | | [phone] | | (shortness of | | | [...] never received DuoNeb from his caregivers at [facility]. Has Ventolin for prn use but [...] Epigastric hernia COPD (chronic obstructive pulmonary disease) ([facility]) Social History: He reports that he quit [...] never been treated with a nebulizer at [facility]. 2. Dyspnea-likely multifactorial related to a component of COPD and deconditioning from a right knee injury. I suspect that little can be done for the patient's orthopedic issues. Rather our efforts have focused on improving his airflow obstruction. Plan 1. Our office will contact Andreea Baraajs to determine what is truly happening with [...]
--- OUTSIDE RECORDS SUMMARY | ~2019-10-19 | XMS | Encounter Summary ---
Demographics + + + | Address | [address] | | | [place] [address] | + + + | Home Phone | | + + + | Preferred Language | Unknown | + + + | Marital Status | Single | + + + | Oriental Orthodox Affiliation | Unknown | + + + | Race | Unknown | + + + | Ethnic Group | Unknown | + + + Author + + + | Author | [facility] | | | and [place] | + + + | Organization | [facility] | | | and [place] | + + + | Address | Unknown | + + + | Phone | Unavailable | + + + Support + + + + + | Name | Relationship | Address | Phone | + + + + + | Roxann Hicks | ECON | [address] | | | | | [place] | | | | | [address] | | + + + + + Care Team Providers + +------+ + | Care Assembler Truck Trailer Name | Role | Phone | + [...] breath) (Primary Dx) | | | | [address] [place], | | | | | | [place] [address] | | | | | | [phone] | | | +--------+ + + + [...]
--- OUTSIDE RECORDS SUMMARY | ~2019-10-19 | XMS | Encounter Summary ---
Demographics + + + | Address | [address] | | | [place] [address] | + + + | Home Phone | | + + + | Preferred Language | Unknown | + + + | Marital Status | Single | + + + | Congregation Affiliation | Unknown | + + + | Race | Unknown | + + + | Ethnic Group | Unknown | + + + Author + + + | Author | [facility] | | | and [place] | + + + | Organization | [facility] | | | and [place] | + + + | Address | Unknown | + + + | Phone | Unavailable | + + + Support + + + + + | Name | Relationship | Address | Phone | + + + + + | Roxann Hicks | ECON | [address] | | | | | [place] | | | | | [address] | | + + + + + Care Team Providers + +------+ + | Care Landscaper Helper Name | Role | Phone | + +------+ + | Cornelius Munguia PA-C | PCP | | + +------+ + Encounter Details +--------+ + + + + | Date | Type | Department | Care Team | Description | +--------+ + + + + | 06/14/ | [facility] | [facility] | Jesus Alberto Sivakumar, | SOB (shortness of | | 2014 | Encounter | MED CTR GENERIC OP | MD [address] | breath) | | | | CONV DEPT [address] | [address] [place], [place] | | | | | [address] [place], | [address] | | | | | [place] [address] | | | | | | [phone] | | | +--------+ + + + [...] puffs into | 1 | 0 | 06/14/19 | | | (VENTOLIN HFA) 90 | the lungs every 4 | Inhaler | | 14 | 4 | | mcg/puff | hours as needed [...] | + +--------+ + + + | XR CHEST PA AND | Routin | 06/14/2013 | SOB (shortness of | Results for this | | LATERAL | e | 3:29 PM | breath) | procedure are in the | | | | PST | | results section. | + +--------+ + + + documented in this encounter Results XR Chest PA and Lateral (06/14/2013 3:29 PM PST) + + | Specimen | + + | | + + + + + | Narrative | Performed At | + + + | [facility] | [facility] | | Department [address] [facility] | [facility] | | [ rep [id number]] [ rep [facility] | | st zip] Signed | - IMAGING | | | | | Patient Name: BRETT OSMAN Physician: | | | NARCISA. : 1945 Age: 67 Sex: M Unit #: [id number] | | | Exam Date: 06/14/13 Location: [facility] | | | Report #: [id number] Page: | | | %(RAD)RES..mtdd.print.filter("pg") of %(RAD) | | | RES..mtdd.print.filter("tpg") | | | | | | Accession Number: [id number] | | | CHEST X-RAY CLINICAL HISTORY: [...] Transcribed Date/Time: 06/14/2013 15:40 | | | Oil Winterizer: FERNANDO <<Signature on File>> | | | | | | Miguelito Block MD06/14/13 1736 <Electronically signed by Miguelito Block | | | MD> Miguelito Block MD 06/14/13 1529 Oil Winterizer: | | | [employer] [id number]/16/14 1540 Sivakumar Granda, | | | | | + + + + + + + + | Performing | Address | City/State/Zipcode | Phone Number | | Organization | | | | + + + + + | [address] | [address] | [place] | [phone] | | [facility] | | [address] | | | - IMAGING | | | | + + + + + documented in this encounter Visit Diagnoses + + | Diagnosis | + + | SOB (shortness of breath) Shortness of breath | + + documented in this encounter
--- OUTSIDE RECORDS SUMMARY | ~2019-10-19 | XMS | Encounter Summary ---
Demographics + + + | Address | [address] | | | [place] [address] | + + + | Home Phone | | + + + | Preferred Language | Unknown | + + + | Marital Status | Single | + + + | Hindu Affiliation | Unknown | + + + | Race | Unknown | + + + | Ethnic Group | Unknown | + + + Author + + + | Author | [facility] | | | and [place] | + + + | Organization | [facility] | | | and [place] | + + + | Address | Unknown | + + + | Phone | Unavailable | + + + Support + + + + + | Name | Relationship | Address | Phone | + + + + + | Roxann Hicks | ECON | [address] | | | | | [place] | | | | | [address] | | + + + + + Care Team Providers + +------+ + | Care Medical Appointment Clerk Name | Role | Phone | [...] | | | | abnormality | PA-Natalie [address] | [address] | | | | | Procedures | [place] | [place], | | | | | [place] | WAY | [place] [address] | | | | | OFFICE/OUTPT | [place], | Phone: | | | | | | [place] [address] | [phone] | | | | | VISIT,PAMLE | Phone: | Fax: | | | | | [place] | [phone] | [phone] | | | | | | Fax: | | | | | | | [phone] | | +--------+--------+ + + + + Encounter Details +--------+---------+ + + + | Date | Type | Department | Care Team | Description | +--------+---------+ + + + | 05/02/ | Office | [facility] | Sivakumar Granda, | Pre-op chest exam | | 2011 | Visit | PULMONARY [address] | MD [address] | (Primary Dx) | | | | [place], | [place], [place] | | | | | [place] [address] | [address] | | | | | [phone] | | | +--------+---------+ + + + [...] Specifically Kiran has apparently 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. 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 He wonders a sbestos exposure occurred. [...] Per history the patient has approximately a 751-qzvm-lryb smoking history. He reports smok ing in 1991. As a distant history of "lung disease "of unclear etiology previously followed by a analog ic design architect in [facility]. There has a distant memory of [...]
--- OUTSIDE RECORDS SUMMARY | ~2019-10-19 | XMS | Encounter Summary ---
Demographics + + + | Address | [address] | | | [place] [address] | + + + | Home Phone | | + + + | Preferred Language | Unknown | + + + | Marital Status | Single | + + + | Adventist Affiliation | Unknown | + + + | Race | Unknown | + + + | Ethnic Group | Unknown | + + + Author + + + | Author | [facility] | | | and [place] | + + + | Organization | [facility] | | | and [place] | + + + | Address | Unknown | + + + | Phone | Unavailable | + + + Support + + + + + | Name | Relationship | Address | Phone | + + + + + | Roxann Hicks | ECON | [address] | | | | | [place] | | | | | [address] | | + + + + + Care Team Providers + +------+ + | Care Environmental Scientist Name | Role | Phone | + [...] | | | diseases of | PA-C [address] | [address] | | | | | lung, not | [place] | [place], | | | | | elsewhere | WAY | [place] [address] | | | | | classified | [place], | Phone: | | | | | Procedures | [place] [address] | [phone] | | | | | [place] OFFICE | Phone: | Fax: | | | | | OUTPATIENT | [phone] | [phone] | | | | | VISIT 25 | Fax: | | | | | | MINUTES [place] | [phone] | | | | | | BREATHING | | | | | | | CAPACITY | | | | | | | TEST ND | | | | | | | EVAL OF | | | | | | | BRONCHOSPASM | | | | | | | ND EVAL OF | | | | | | | | | | | | | | BRONCHOSPASM | | | | | | | ,PROLONGED | | | | | | | ND | | | | | | | PLETHYSMOGRA | | | | | | | PHY LUNG | | | | | | | VOLUMES W/WO | | | | | | | AIRWAY | | | | | | | RESIST ND | | | | | | | DIFFUSING | | | | | | | CAPACITY | | | +--------+--------+ + + + + Encounter Details +--------+---------+ + + + | Date | Type | Department | Care Team | Description | +--------+---------+ + + + | 06/14/ | Office | [facility] | Sivakumar Granda, | SOB (shortness of | | 2013 | Visit | PULMONARY [address] | MD [address] | breath) (Primary | | | | [place], | [place], [place] | Dx); COPD ([place] | | | | [place] [address] | [address] | obstructive | | | | [phone] | | pulmonary disease) | | | [...] the medical record to pulmonary evaluation/consultation in [facility] on. 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 5. A copy this dictation will be [...] Performed At | + + + | [facility] | [place] | | Department [address] [facility] | [place] | | [ rep [phone]] [ rep [facility] | | [facility]] Signed | - IMAGING | | | | | Patient Name: BRETT OSMAN Physician: | | | NARCISA. : 1945 Age: 67 Sex: M Unit #: [id number] | | | Exam Date: 06/14/13 Location: [facility] | | | Report #: [id number] Page: | | | %(RAD)RES..mtdd.print.filter("pg") of %(RAD) | | | RES..mtdd.print.filter("tpg") | | | | | | Accession Number: [id number] | | | CHEST X-RAY CLINICAL HISTORY: [...] Transcribed Date/Time: 06/14/2013 15:40 | | | [employer] Fishing Crew Member: <<Signature on File>> | | | | | | Miguelito Block MD06/14/13 1736 <Electronically signed by Miguelito Block | | | MD> Miguelito Block MD 06/14/13 1529 [employer] Fishing Crew Member: | | | [employer] [id number]/16/14 1540 Sivakumar Granda, | | | | | + + + + + + + + | Performing | Address | City/State/Zipcode | Phone Number | | Organization | | | | + + + + + | [facility] | [address] | [place] | [phone] | | [facility] | | [address] | | | - IMAGING | | [...]
--- OUTSIDE RECORDS SUMMARY | ~2019-10-19 | XMS | Clinical Summary ---
Demographics + + + | Address | [address] | | | [place] [address] | + + + | Home Phone | | + + + | Preferred Language | Unknown | + + + | Marital Status | | + + + | Anglican Affiliation | Unknown | + + + | Race | Unknown | + + + | Ethnic Group | Unknown | + + + Author + + + | Author | [facility] (Historical as of | | | 01-13-19) | + + + | Organization | [facility] (Historical as of | | | 01-13-19) | + + + | Address | Unknown | + + + | Phone | Unavailable | + + + Support + + + + + | Name | Relationship | Address | Phone | + + + + + | Roxann Hicks | ECON | [address] | | | | | [place] | | | | | [address] | | + + + + + Care Team Providers + +------+ + | Care Senior Technologist Name | Role | Phone | [...] +------+-------+ + | MEDICARE | MEDICA | [id number] | | | [address] | | | RE | | | | [place] [address] | | | IP-OP | | | | | + +--------+ +------+-------+ + | [facility] | YELLOW | [id number] | | | | | PLANS | [place] | | | | | + +--------+ +------+-------+ + | MEDICAID | EASTER | [id number] | | | [address] | | | N | | | | [place], [place] | | | [place] | | | | [address] | | | 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
--- OUTSIDE RECORDS SUMMARY | ~2019-10-19 | XMS | Encounter Summary ---
Demographics + + + | Address | [address] | | | [place] [address] | + + + | Home Phone | | + + + | Preferred Language | Unknown | + + + | Marital Status | Single | + + + | Episcopalian Affiliation | Unknown | + + + | Race | Unknown | + + + | Ethnic Group | Unknown | + + + Author + + + | Author | [facility] | | | and [place] | + + + | Organization | [facility] | | | and [place] | + + + | Address | Unknown | + + + | Phone | Unavailable | + + + Support + + + + + | Name | Relationship | Address | Phone | + + + + + | Roxann Hicks | ECON | [address] | | | | | [place] | | | | | [address] | | + + + + + Care Team Providers + +------+ + | Care Tipple Oiler Name | Role | Phone | + +------+ + | Cornelius Munguia PA-C | PCP | | + +------+ + Reason for Visit + + + | Reason | Comments | + + + | Follow-up | | + + + Encounter Details +--------+---------+ + + + | Date | Type | Department | Care Team | Description | +--------+---------+ + + + | 06/28/ | Office | [facility] | Sivakumar Granda, | COPD (chronic | | 2013 | Visit | PULMONARY [address] | MD [address] | obstructive | | | | [place], | [place], [place] | pulmonary disease) | | | | [place] [address] | [address] | ([facility]) (Primary Dx) | | | | [phone] | | | +--------+---------+ + + + [...] + + + | Blood Pressure | 144/72 | 06/28/2013 1:07 PM | | | | | PST | | + + + + + | Pulse | 83 | 06/28/2013 1:07 PM | | | | | PST | | + + + + + | Temperature | - | - | | + + + + + | Respiratory Rate | - | - | | + + + + + | Oxygen Saturation | 98% | 06/28/2013 1:07 PM | | | | | PST | | + + + + + | Inhaled Oxygen | - | - | | | Concentration | | | | + + + + + | Weight | 84 kg (185 lb 3.2 | 06/28/2013 1:07 PM | | | | oz) | PST | | + + + + + | Height | 161.3 cm (5' 3.5") | 06/28/2013 1:07 PM | | | | | PST | | + + + + + | Body Mass Index | 32.29 | 06/28/2013 1:07 PM | | | | | PST | | + + + + + documented in this encounter Patient Instructions Patient Instructions Sivakumar Granda MD - 06/28/2013 1:23 PM PSTWill start nebulizer us e at home/Andreea Barajas. documented in this encounter Progress Notes Sivakumar Granda MD - 06/28/2013 1:09 PM PSTFormatting of this note might be different f rom the original. Pulmonary Follow Up 06/28/2013 HPI Brett Reis is a 67 y.o. male patient of Cornelius Munguia here today for follow up of dysp christel on exertion. Last visit was on 06/14/13. Since their last appointment they feel like their breathing iss ues have been stable. They have not had any acute illnesses. The patient has not required a prednisone taper since our last clinic appointment. They are currently on no daily regimen of breathing meds. At the time her last clinic appointment the patient was prescribed Jarvis ke. For unclear reasons he never initiated Ventolin use. Currently the patient is able to walk many miles at their own pace on level ground. For th e most part Brett denies shortness of breath. The patient states that a couple days ago he walk from [place] [employer] to [place]. Uses a walker to ambulate. They are not exercising regula rly. They are not enrolled in cardiac/pulmonary rehabilitation or other physical therapy. Sourav solis have not completed pulmonary rehabilitation in the [...] or post nasal drip. The patient has not received this year's influenza vaccination. They aren't certain as to whether they are up-to-date on her Pneumovax. Past Medical History Past Medical History Diagnosis Date Osteoarthritis Osteoarthrosis Dyspnea on exertion Hypertension Vitamin d deficiency Chronic pain Right knee Knee injury Right knee Lower leg fracture left Epigastric hernia COPD (chronic obstructive pulmonary disease) Social History: He reports that he quit [...] Disp: , R fl: ; HYDROcodone-acetaminophen (NORCO) 5-325 mg per tablet, [...] mouth Daily. , Disp: , Rfl: ; traZODo ne (DESYREL) 50 mg tablet, Take 50 mg [...] Denies urticaria and allergic rash. Objective BP 144/72 | Pulse 83 | Ht 1.613 m (5' 3.5") | Wt 84.006 kg (185 lb 3.2 oz) | BMI 32.29 kg/m 2 | SpO2 98% Appearance: Alert, cooperative, no [...] Neurologic: Gait normal. No apparent weakness. Data: Chest x-ray(s) from 04/13/12 and 06/14/13 and were reviewed and interpreted in clinic with sourav ortiz patient. The x-ray(s) shows mild basilar scarring. Old rib fractures are noted on the ri ght. There is also an old left clavicle fracture. Pulmonary function tests were performed on 06/28/13 and were reviewed with the patient today . They show the postbronchodilator FVC is 2.44, 70% of predicted. The FEV1 1.97, 69% of pr edicted with an FEV1/FEC of 80%. The residual blindness 2.53, 126% of predicted and the unc orrected DLCO 16.9, 65%. Assessment 1. Probable COPD-patient reports 3 packs of cigarettes a day for approximately 35 years. No tobacco use for the last 15 years. Repeat pulmonary function shows primarily restrictive changes with borderline gas trapping and a mild diffusion abnormality. At the time her last clinic appointment that'll and was prescribed but not instituted. The reason for this is unclear. We will institute use of a nebulizer. Hopefully the patient's care providers can assure me dication compliance. No new abnormalities noted on chest x-ray. Plan 1. DuoNeb 4 times a day for the next month. 2. Pulmonary clinic followup appointment to assess the status of the patient symptoms in 4 weeks' time. CC: Cornelius Munguia documented in this encounter Plan of Treatment Not on filedocumented as of this encounter Visit Diagnoses + + | Diagnosis | + + | COPD (chronic obstructive pulmonary disease) (HCC) - Primary Chronic airway | | obstruction, not elsewhere classified | + + documented in this encounter
--- OUTSIDE RECORDS SUMMARY | ~2019-10-19 | XMS | Clinical Summary ---
Demographics + + + | Address | [address] | | | [place] [address] | + + + | Home Phone | | + + + | Preferred Language | Unknown | + + + | Marital Status | Single | + + + | Orthodoxy Affiliation | Unknown | + + + | Race | Unknown | + + + | Ethnic Group | Unknown | + + + Author + + + | Author | [facility] | | | and [place] | + + + | Organization | [facility] | | | and [place] | + + + | Address | Unknown | + + + | Phone | Unavailable | + + + Support + + + + + | Name | Relationship | Address | Phone | + + + + + | Roxann Hicks | ECON | [address] | | | | | [place], [place] | | | | | [address] | | + + + + + Care Team Providers + +------+ + | Care Collection Clerk Name | Role | Phone | [...] | | | | | | | ([facility]) | | | | | | | [...] +--------+ +---------+--------+ | MEDICARE | MEDICA | [id number] | 10/29/19 | [phone] | | Medica | | | RE | | 12-Pre | 5 | | re | | | PART A | | sent | | | | | | AND B | | | | | | + +--------+ +--------+ +---------+--------+ | [place]ICAID [place] | MEDICA | [id number] | | [phone] | | Medica | | | [place] | | 014-Pr | 2 | | id | | | PLUS | | esent | | | | + +--------+ +--------+ +---------+--------+ | [facility] | IHS | [id number] | 04/23/ | | | Indemn | [...] Person | Self | [birth year] | [address] | | | al/Fam | | 1946 | [phone] | [place] [address] | | | [place] | | | 7 (Home) | | + +--------+ +--------+ + + Advance Directives + + + + + | Type | Date Recorded | Patient | Explanation | | | | Payroll And Benefits Coordinator | | + + + + + | Power of | | | | | Insurance Office Supervisor | | | | + + + + + | Advance | | | | | Directive | | | | + + + + +
--- OUTSIDE RECORDS SUMMARY | ~2019-10-19 | XMS | Encounter Summary ---
Demographics + + + | Address | [address] | | | [place] [address] | + + + | Home Phone | | + + + | Preferred Language | Unknown | + + + | Marital Status | Single | + + + | Synagogue Affiliation | Unknown | + + + | Race | Unknown | + + + | Ethnic Group | Unknown | + + + Author + + + | Author | [facility] | | | and [place] | + + + | Organization | [facility] | | | and [place] | + + + | Address | Unknown | + + + | Phone | Unavailable | + + + Support + + + + + | Name | Relationship | Address | Phone | + + + + + | Roxann Hicks | ECON | [address] | | | | | [place] | | | | | [address] | | + + + + + Care Team Providers + +------+ + | Care Receptionist Nurse Name | Role | Phone | + [...] | | | diseases of | PA-C [address] | [address] | | | | | lung, not | [place] | [place], | | | | | elsewhere | WAY | [place] [address] | | | | | classified | [place], | Phone: | | | | | Procedures | [place] [address] | [phone] | | | | | [place] OFFICE | Phone: | Fax: | | | | | OUTPATIENT | [phone] | [phone] | | | | | VISIT 25 | Fax: | | | | | | MINUTES | [phone] | | +--------+--------+ + + + + Encounter Details +--------+---------+ + + + | Date | Type | Department | Care Team | Description | +--------+---------+ + + + | 07/11/ | Office | [facility] | Jesus Alberto Sivakumar, | Pre-op chest exam | | 2012 | Visit | PULMONARY [address] | MD [address] | (Primary Dx) | | | | [place], | [place], [place] | | | | | [place] [address] | [address] | | | | | [phone] | | | +--------+---------+ + + + [...] [facility] other [facility]. They have not completed pulmonary [facility] in [facility] He does not cough chronically, and does [...]
--- OUTSIDE RECORDS SUMMARY | ~2019-10-19 | XMS | Encounter Summary ---
Demographics + + + | Address | [address] | | | [place] [address] | + + + | Home Phone [...] + + + | Author | [facility] | | | and [place] | + + + | Organization | [facility] | | | and [place] | + + + | Address | Unknown | + + + | Phone | Unavailable | + + + Support + + + + + | Name | Relationship | Address | Phone | + + + + + | Roxann Hicks | ECON | [address] | | | | | [place] | | | | | [address] | | + + + + + Care Team Providers + +------+ + | Care Room Service Clerk Name | Role | Phone | + +------+ + | Cornelius Munguia PA-C | PCP | | + +------+ + Encounter Details +--------+ + + + + | Date | Type | Department | Care Team | Description | +--------+ + + + + | 06/14/ | [facility] | [facility] | Jesus Alberto Sivakumar, | SOB (shortness of | | 2014 | Encounter | MED CTR GENERIC OP | MD [address] | breath) | | | | CONV DEPT [address] [place], [place] | | | | | [address] [place], | [address] | | | | | [place] [address] | | | | | | [phone] | | | +--------+ + + + [...] Performed At | + + + | [facility] | [place] | | Department [address] [facility] | [facility] | | [ rep [address] [address]] [ rep [facility] | | st zip] Signed | - IMAGING | | | | | Patient Name: BRETT OSMAN Physician: | | | NARCISA. : 1945 Age: 67 Sex: M Unit #: [id number] | | | Exam Date: 06/14/13 Location: [facility] | | | Report #: [id number] Page: | | | %(RAD)RES..mtdd.print.filter("pg") of %(RAD) | | | RES..mtdd.print.filter("tpg") | | | | | | Accession Number: [id number] | | | CHEST X-RAY CLINICAL HISTORY: [...] Transcribed Date/Time: 06/14/2013 15:40 | | | Demonstrator Sewing Techniques: FERNANDO <<Signature on File>> | | | | | | Miguelito Block MD06/14/13 1736 <Electronically signed by Miguelito Block | | | MD> Miguelito Block MD 06/14/13 1529 Demonstrator Sewing Techniques: | | | Pager [id number]/16/14 1540 Sivakumar Granda, | | | | | + + + + + + + + | Performing | Address | City/State/Zipcode | Phone Number | | Organization | | | | + + + + + | [facility] | [address] | [place] | [phone] | | [facility] | | [address] | | | - IMAGING | | | | + + + + + documented in this encounter Visit Diagnoses + + | Diagnosis | + + | SOB (shortness of breath) Shortness of breath | + + documented in this encounter
--- OUTSIDE RECORDS SUMMARY | ~2019-10-19 | XMS | Encounter Summary ---
Demographics + + + | Address | [address] | | | [place] [address] | + + + | Home Phone | | + + + | Preferred Language | Unknown | + + + | Marital Status | Single | + + + | Restoration Affiliation | Unknown | + + + | Race | Unknown | + + + | Ethnic Group | Unknown | + + + Author + + + | Author | [facility] | | | and [place] | + + + | Organization | [facility] | | | and [place] | + + + | Address | Unknown | + + + | Phone | Unavailable | + + + Support + + + + + | Name | Relationship | Address | Phone | + + + + + | Roxann Hicks | ECON | [address] | | | | | [place] | | | | | [address] | | + + + + + Care Team Providers + +------+ + | Care Pad Extraction Tender Name | Role | Phone | + [...] [address] | Osteoarthritis; | | | | [place], | [place], [place] | Incisional hernia; | | | | [place] [address] | [address] | Osteoarthrosis; | | | | [phone] | | Incarcerated | | | | [...]
--- OUTSIDE RECORDS SUMMARY | ~2019-10-19 | XMS | Clinical Summary ---
Demographics + + + | Address | [address] | | | [place] [address] | + + + | Home Phone | | + + + | Preferred Language | Unknown | + + + | Marital Status | | + + + | Bahai Affiliation | Unknown | + + + | Race | Unknown | + + + | Ethnic Group | Unknown | + + + Author + + + | Author | [facility] (Historical as of | | | 01-13-19) | + + + | Organization | [facility] [facility] (Historical as of | | | 01-13-19) | + + + | Address | Unknown | + + + | Phone | Unavailable | + + + Support + + + + + | Name | Relationship | Address | Phone | + + + + + | Roxann Hicks | ECON | [address] | | | | | [place] | | | | | [address] | | + + + + + Care Team Providers + +------+ + | Care Plan Coordinator Name | Role | Phone | + [...] +------+-------+ + | MEDICARE | MEDICA | [id number] | | | [address] | | | RE | | | | [place] [address] | | | IP-OP | | | | | + +--------+ +------+-------+ + | [facility] | YELLOW | [id number] | | | | | PLANS | [place] | | | | | + +--------+ +------+-------+ + | MEDICAID | [place] | [id number] | | | [address] | | | N | | | | [place], [place] | | | [place] | | | | [address] | | | LEAD SLOT TECHNICIAN | | | | | + +--------+ +------+-------+ + | MEDICAID | MEDICA | [id number] | | | [address] | | | ID | | | | [place], [place] | | | [place] | | | | [address] | + +--------+ +------+-------+ + + +--------+ [...] | 1946 | +1-000-000- | [place] [address] | | | [place] | | | [address] | | + +--------+ +--------+ + +
--- OUTSIDE RECORDS SUMMARY | ~2019-10-19 | XMS | Encounter Summary ---
Demographics + + + | Address | [address] | | | [place] [address] | + + + | Home Phone | | + + + | Preferred Language | Unknown | + + + | Marital Status | Single | + + + | Yazidism Affiliation | Unknown | + + + | Race | Unknown | + + + | Ethnic Group | Unknown | + + + Author + + + | Author | [facility] | | | and [place] | + + + | Organization | [facility] | | | and [place] | + + + | Address | Unknown | + + + | Phone | Unavailable | + + + Support + + + + + | Name | Relationship | Address | Phone | + + + + + | Roxann Hicks | ECON | [address] | | | | | [place] | | | | | [address] | | + + + + + Care Team Providers + +------+ + | Care Lockstitch Zipper Setter Name | Role | Phone | + [...] + + | 06/28/ | Office | [facility] | Sivakumar Granda, | COPD (chronic | | 2013 | Visit | PULMONARY [address] | MD [address] | obstructive | | | | [place], | [place], [place] | pulmonary disease) | | | | [place] [address] | [address] | ([facility]) (Primary Dx) | | | | [phone] | | | +--------+---------+ + + + [...] a couple days ago he walk from [place] to [place]. Uses a walker to ambulate. They are [...]
--- NOTE | 2019-10-20 06:46 | EKG ---
[facility] [address] [place], [place] [address] Signed Normal sinus rhythm Anterior infarct , age undetermined ST \T\ T wave abnormality, consider lateral ischemia Abnormal ECG No previous ECGs available Confirmed by SAMY AMOS MD ([id number]) on 10/20/2019 6:46:20 AM Electronically Signed By: SAMY AMOS MD 10/20/19 0646 PATIENT NAME: MICKI OSMAN Electrocardiogram DATE OF : 47 PHYSICIAN: SAMY AMOS MD REPORT #: [id number] REPORT IS CONFIDENTIAL AND NOT TO BE RELEASED WITHOUT AUTHORIZATION
== END 2019-10-19 23:21 | disposition home or self-care (01) ==
LOC: ED 21:18
DX: F10.129 Alcohol abuse with intoxication, unspecified (principal); E78.00 Pure hypercholesterolemia, unspecified; I10 Essential (primary) hypertension; Z87.891 Personal history of nicotine dependence; Z88.8 Allergy status to other drugs, medicaments and biological substances
CPT/HCPCS: 71045; 80053; 81001; 84484; 85025; 93005; 93010; 99285-25; G0480

== ENCOUNTER 2020-12-24 13:54 | Inpatient (IN) | payer MEDICARE, OTHER ==
[~2020-12-24] VITALS: Ht 160 cm; Wt 62.8 kg
--- NOTE | 2020-12-24 17:00 | EKG ---
[facility] [address] [facility] [place], [place] [address] Signed Normal sinus rhythm Anterior infarct (cited on or before 19-OCT-2019) Marked ST abnormality, possible lateral subendocardial injury Abnormal ECG When compared with ECG of 19-OCT-2019 21:26, ST now depressed in Anterior leads Confirmed by VICKI DEL CID DO ([id number]) on 12/24/2020 5:00:18 PM Electronically Signed By: VICKI DEL CID DO 12/24/20 1700 PATIENT NAME: MICKI OSMAN Electrocardiogram DATE OF : 47 PHYSICIAN: VICKI DEL CID DO REPORT #: [id number] REPORT IS CONFIDENTIAL AND NOT TO BE RELEASED WITHOUT AUTHORIZATION
--- NOTE | 2020-12-24 18:38 | NUR ---
REPORT RECEIVED FROM GERTRUDE GONZALEZ. AWAITING PTS ARRIVAL TO UNIT.
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
--- NOTE | 2020-12-24 19:35 | NUR ---
RECEIVED REPORT, PT IS IN BED WITH BED ALARM ON. CALL LIGHT IS CLOSE.
--- NOTE | 2020-12-24 19:45 | NUR ---
IN PT RM TO CHECK ON ALARM, PTs BED INDICATING RRs ABOVE LIMIT, RN AWARE, ASSISTED PT WITH TV CHANNELS, WARM BLANKET PROVIDED AND ROOM TEMP, BED ALARM IS ACTIVE AT THIS TIME, NO FURTHER NEEDS
--- NOTE | 2020-12-24 21:00 | NUR ---
IN ROOM TO ASSESS PT AND ADMINISTER MEDICATIONS. PT IS ALERT AND ORIENTED BUT IS FORGETFUL AND CHANGES TOPICS QUICKLY. PT ADMITS HE DRINK MUCH HE CAN GET HIS HANDS ON. DR DEL CID WAS IN ROOM TO ASSESS PT WELL. PT DENIES PAIN AND NAUSEA, DESTINI PROVIDED. EDUCATED PT ON PRONING, HE WOULD LIKE TO STAY SITTING UP AT THIS TIME. NOTIFIED DR DEL CID OF PT'S INCREASED RR AND NO NEW ORDERS RECEIVED. CALL LIGHT IS CLOSE AND BED ALARM IS ON. PT WOULD LIKE TO REMAIN SITTING UP AT THIS TIME.
--- NOTE | 2020-12-24 22:12 | NUR ---
MOVED PT TO ROOM 120 D/T BED ALARM SOUNDING MULT TIMES. PT IMPULSIVE, REQUIRING MORE IMMEDIATE RESPONSE TO THE ALARM. 120 IS A NEGATIVE PRESSURE ROOM, D/T HIS COVID.
--- NOTE | 2020-12-24 22:15 | NUR ---
BED ALARM SOUNDED PT SITTING UP AT EDGE OF BED. HE SAYS HE WANTS THAT NOISE TURNED OFF. ASSISTED PT TO GET BACK INTO BED AND BED ALARM IS BACK ON. PT DENIES FURTHER NEEDS.
--- NOTE | 2020-12-24 22:20 | NUR ---
BED ALARM SOUNDING. PT SITTING ON THE RIGHT SIDE OF BED, SAYS I HAVE TO PISS. STRUGGLED TO STAND, THIS RN ASSISTED, WITH URINAL. VOIDED 100, WELL LARGE AMOUNT ON THE FLOOR, HIS GOWN, AND SOCKS. ASSISTED INTO DISPOSABLE UNDERWEAR, CLEAN GOWN, AND SOCKS. BACK TO BED, BED ALARM IN PLACE. WILL NEED TO HAVE A SECOND PERSON NEXT TIME HE GETS UP.
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
--- NOTE | 2020-12-24 22:43 | NUR ---
CALL LIGHT ON, PT ASKING HOW TO TURN THE CALL REMOTE'S BACKLIGHT OUT, ASSISTED PT, NO FURTHER NEEDS AT THIS TIME
--- NOTE | 2020-12-24 23:24 | NUR ---
IN ROOM TO START MORE MEDICATIONS. PT DENIES FURTHER NEEDS AT THIS TIME. CPOX READS 94% ON 2LNC. PT DENIES FURTHER NEEDS. CALL LIGHT IS CLOSE.
--- NOTE | 2020-12-25 01:15 | NUR ---
IN ROOM TO START INFUSING LR PT'S KCL IS COMPLETE. PT IS RESTING WITH EYES CLOSED. CPOX IN PLACE AND WNL AT 2LNC. IV IS INFUSING FINE. CALL LIGHT IS CLOSE AND BED ALARM IS ON.
--- NOTE | 2020-12-25 03:30 | NUR ---
IN ROOM TO GET FULL SET OF VS AND ASSESS PT. HE STATES HE IS WARM, TEMP IS WNL AND ROOM FEELS WARM. TURNED TEMP IN ROOM DOWN. REMINDED PT ABOUT PRONING, HE IS TOSSING AND TURNING FROM SIDE TO SIDE D/T BEING WARM AND RESTLESS. PT REMAINS ON 2 LNC. PT DENIES PAIN AND SOB BUT RR REMAINS HIGH IN THE 30'S. FRESH ICEWATER PROVIDED AND PT DENIES FURTHER NEEDS. CALL LIGHT IS CLOSE, BED ALARM IS ON.
--- NOTE | 2020-12-25 04:40 | NUR ---
call light on, pt stating he did not push any buttons, no further needs
--- NOTE | 2020-12-25 05:59 | NUR ---
PT IS RESTING IN BED WITH EYES CLOSED, HE IS MOVING ARMS AT THIS TIME. CPOX READS 94% ON 2LNC. CALL LIGHT IS CLOSE AND BED ALARM IS ON.
--- NOTE | 2020-12-25 06:32 | NUR ---
in to get pt 2pa stand at bedside with urinal, get vitals and i&os at this time, lab in to draw sample no further needs at this time
--- NOTE | 2020-12-25 07:08 | NUR ---
REPORT RECEIVED FROM GERTRUDE GONZALEZ. PT RESTING ON RIGHT SIDE WITH EYES CLOSED, RESPIRATIONS EVEN, RR = 28, O2 AT 99% ON 2L O2 BY NC. BED RAILS UP. CALL LIGHT WITHIN REACH. PT ALLOWED TO REST UNDESTURBED.
--- NOTE | 2020-12-25 07:30 | NUR ---
Received call from Krystal at [facility]. She states she is following this pt and would like updated notes. H&P faxed to [facility].
--- NOTE | 2020-12-25 08:02 | NUR ---
MORNING ASSESSMENT AND MEDICAITON DUE. PT UP TO USE URINAL WITH KEV SERRANO. PT STANDS WITH 1 PERSON ASSIST, 275ML CONCENTRATED YELLOW URINE NOTED. 1 PERSON ASSIST UP TO CHAIR. PT IRRITABLE WITH CARES AND USING CUSS WORDS STATING "I JUST WANT TO FUCKIN SLEEP." AND "I WANT TO FUCKING EAT, WHERE IS MY FOOD." ASSESSMENT DONE. PT DENIES PAIN AND NAUSEA. LEFT AC IV FLUSHES WELL WITH NO S/S/ OF PHELBITIS, INFUSING LR AT 75 AT THIS TIME. RIGHT AC IV DRESSING LOOSE. DRESSING CHANGED PER PROTOCOL. SKIN PROTECTANT APPLIED. IV SALIEN LOCKED WITH ALCOHOL CAP APPLIED. PT ALERT AND ANSWERING QUESTIONS APPROPRIATLY BUT DISORINTED TO DATE AND EVENTS. LUNG SOUNDS CLEAR IN UPPER LOBES. LOWER LOBES SHOW BILATERAL RALES/CRACKELS. O2 AT 94% ON 2L O2 BY NC. DESATURATES DOWN TO 88% WITH ACTIVIEY. RR AT 28, INCREASES TO 38 WITH ACTIVITY. ABDOMINAL MUSCLE USE AND RETRACTIONS NOTED WITH BREATHING DURING ACTIVITY OF GETTING UP TO CHAIR. CPOX REMAINS IN PLACE. PT DEMONSTRATES USE OF I.S. X5 REACHING 800ML. HEART MURMUR HEARD. HEART RATE REGULAR CURRENTLY 66BPM. LARGE UMBILICAL HERNIA CONTINUES IN MID ABDOMEN, LUMP SOFT, BOWEL TONES HEARD. NO S/S OF ETOH WITH DRAWL AT THIS TIME, WILL CONTINUES TO MONITOR. MEDICAITONS GIVEN. PT REMAINS UP TO CHAIR. CALL LIGHT WITHIN REACH. CHAIR ALARM ON. PT DENIES ADDITIONAL REQUESTS OR COMPLAINTS.
--- NOTE | 2020-12-25 10:00 | NUR ---
Attempted to contact granddaughter Dannielle for CM assessment as pt is sob with any exertion. Message left.
--- NOTE | 2020-12-25 10:19 | NUR ---
THIS RN TO ROOM TO CHECK ON PT. PT BACK TO BED WITH 1 PERSON ASSIST AFTER WORKING WITH OCCUPATIONAL THERAPY. PT CONTINUES TO BE VERY AGITATED WITH CARES, USING "FUCK' AND "SHIT" WITH EVERY SENTENCE. PT POSITIONED IN SEMI PRONE POSITION PER PRONING PROTOCOL, TENDING TOWARD RIGHT SIDE, SUPPORTED WITH PILLOWS. VITAL SIGNS STABLE. BED RAILS UP. CALL LIGHT WITHIN REACH. BED ALARM ON.
--- NOTE | 2020-12-25 10:20 | NUR ---
Spoke with both OT and Dr. Mcclelland and they are recommending placement for this pt. Attemtped to call granddaughter again and message left. Called and spoke with [facility] in [place], [place] and asked if they are again taking pt. They are not. Closest SNF accepting pts is [facility] [place].
--- NOTE | 2020-12-25 11:20 | NUR ---
NOON ASSESSMENT DUE. PT CALL LIGHT ON. PT STATES "I CAN'T BREATH." THIS RN TO ROOM. O2 AT 93% ON 2L, RR = 28. PT REPORTS HE NEEDS REPOSITIONED TO HELP HIM BREATH. PT CURRENTLY HAS REPOSIIONED SELF TO RIGHT SIDE, HEAD OF BED ELEVATED TO 35 DEGREES. PT STATES THE HEAD OF THE BED BEING UP IS "MAKING MY BACK HURT." PT REPOSITIONED TO LEFT SIDE, SUPPORTED WITH PILLOWS. HEAD OF BED ELEVATEDTO 10 DEGREES. PT REPORTS BACK PAIN HAS RESOLVED. ASSESSMENT DONG LUNG SOUNDS CLEAR AT THIS TIME. RR = 28, BROWN NOTED WITH ANY ACTIVITY, INCLUDING REPOSITIONING. PT DEMONSTRATES USE OF I.S. REACHING 1000ML. NO TREMORS, HEADACHE, AGITATION, OR OTHER CIWA S/S NOTED. PT DENIES NASUEA. PT CONTINUES TO BE DISORIENTED TO EVENT AND DATE BUT OTHERWISE ORIENTED. LUNCH ORDER PLACED FOR PT. PT CONTINUES TO REST ON LEFT SIDE. NO ADDITIONAL REQUESTS OR COMPLAINTS. CALL LIGHT WITHIN REACH. BED RAILS UP. BED ALARM ON.
--- NOTE | 2020-12-25 13:15 | NUR ---
Spoke with grandmonicaughter, Dannielle, whom pt lives with. They live in 1 story home without steps. He uses a cane in the home and a walker out doors. He is able to shower with assist and eat with meal prepared. Granddaughter states if pt needs placement on dc, she is in agreement with placement to a SNF. She also states pt has dementia and thinks it is 1988 and he will visit about this time clearly. He has difficul ty with conversations in this time. Called [facility] in [place] and they do have beds. Possible bed available on the week end but more like beginning of next week.
--- NOTE | 2020-12-25 13:30 | NUR ---
Received return call from pts granddaughter. Pt sleeping when I attemtped to see. Pt lives with his granddaughter Dannielle. CM assessment completed granddaughter is agreement for pt to go to SNF on dc if pt needs. She is aware the only SNF for covid pts in [place] is in [place].
--- NOTE | 2020-12-25 13:35 | NUR ---
tHIS RN TO ROOM TO CHECK ON PT. PT UP TO CHAIR. PT REQUESTS WATER AND A COUGH DROP. SEE MAR FOR MEDICATION GIVEN. WATER REFILLED. COUGH CONTINUES. O2 AT 93% ON 2L O2 BY NC. RR = 28. PT REMAINS UP TO CHAIR. DENIES PAIN AND NAUSEA. NO ADDITIONAL REQUESTS OR COMPLAINTS AT THIS TIME. CALL LIGHT WITHIN REACH. CHAIR ALARM ON.
--- NOTE | 2020-12-25 15:05 | NUR ---
Chart faxed to Gurinder at [email or web address] [facility] [phone] F [phone] P.
--- NOTE | 2020-12-25 15:40 | NUR ---
DRY WALL APPLICATOR STATES PT HAS BECOME INCREASINGLY AGITATED, CLIMBING OUT OF BED, CHAIR AND GENERALLY TRYING TO "GET UP." THIS RN TO ROOM TO CHECK ON PT. PT AGITATED, SWINGING, AND YELLING "FUCK" PT REPORTS A HEADACHE. DENIES NASUEA, NO TREMMORS NOTED. CIWA SCORE OF 8. PT GUIDED BACK TO BED, WAKES UP ~EVERY 3 MINUTES AGITATED AGAIN, YELLING AND SWINGING AT CARE PROVIDERS. SLIP BOX CHANGER TO BEDSIDE. PT NOTED TO BE CONSISTANTLY TACHYCARDIA FORM 90-110'S. MD UPDATED. CIWA PROTOCOL STARTED. 2MG ATAVAN GIVEN. PT CALMS AND RESTS ON RIGHT SIDE IN BED. ASSESSMENT DONE. LUNG SOUNDS CLEAR. PT HAS REMOVED CLOTHING AND OXYGEN IN AGITATION. OXYGEN SATURATION REMAINS AT 100% ON ROOM AIR AT THIS TIME. PT ALLOWED TO STAY ON ROOM AIR. RR = 32, MD AWARE. ABDOMINAL MUSCLE USE NOTED, RETRACTIONS WITH ACTIVITY. PT NOW DISORIENTED TO ALL BUT SELF, DOES NOT FOLLOW DIRECTIONS, NO LONGER ORIENTED TO PLACE. UMBILICAL HERNIA UNCHANGED. UPDATED ON ALL CHANGES. PT NOW RESTING IN BED ON RIGHT SIDE, HEAD OF BED ELEVATED TO 26 DEGREES. BED RAIL SUP. BED ALARM ON. ROOM NEAR NURSES STATION FOR MONITORING.
--- NOTE | 2020-12-25 17:42 | NUR ---
THIS RN TO ROOM TO CHECK ON PT. PT AWAKENS TO VOICE AND LIGHT TOUCH. PT DENIES NEED TO USE THE URINAL. CIWA SCORE OF 3. PT DENIES HEADACHE, MILD AGITATION NOTED. VITAL SIGNS STABLE. O2 AT 99% ON ROOM AIR, HEART RATE NOW 60'S AND 70'S. PT CONTINUES TO REFUSE TO WEAR CLOTHING. PT DENIES ADDITIONAL REQUESTS OR COMPLAINTS. CALL LIGHT WITHIN REACH. BED RAILS UP. BED ALARM ON.
--- NOTE | 2020-12-25 18:23 | NUR ---
PT AGITATION INCREASING, PT PULLING AT LINES, TRYING TO CLIMB OUT OF BED. SCRATCHING AT HEAD AND FACE. PT DENIES HEADACHE AND NAUSEA, REPORTS ITCHINESS. ANXIOUS AND AGITATED. CIWA SCORE OF 9 PER GERTRUDE MCCARTHY. ATAVAN GIVEN PER PROTOCOL. HICCUPS NOTED. THIS RN AT BEDSIDE WITH PT FOR 15 MINUTES UNTIL PT CALMS. PT NOW RESTING IN BED WITH EYES CLOSED. RR = 28, O2 AT 94% ON ROOM AIR, HEART RATE OF 84. BED RAILS UP. CALL LIGHT WITHIN REACH. BED ALARM ON.
--- NOTE | 2020-12-25 18:48 | NUR ---
PT HERE FOR COVID POSITIVE PNEUMONIA. PT UP TO CHAIR AND TO USE URINAL WITH 1 PERSON ASSIST. PT VERY IMPULSIVE AND UNSTEADY ON FEET. BED/CHAIR ALARM ESSENTIAL FOR PT SAFTEY. PT TOLERATING REGULAR DIET WITH GOOD APPITITE. PT WEANED TO ROOM AIR THIS SHIFT. LUNG SOUNDS CORSE IN BASES, IMPROVING THROUGHOUT SHIFT. MAINTAINING O2 SATURATIONS ABOVE 92% ON ROOM AIR. PT BECOMING INCREASINGLY AGITATED THIS SHIFT, COMBATIVE AND USING F-WORD WITH STAFF. CIWA PROTOCOLS STARTED, INITAL CIWA SCORE OF 8. ATAVAN GIVEN X2. IV'S NOW SALINE LOCKED. PT ENCORUAGED TO PRON THIS SHFIT, MINIMAL TOERANCE. PT VOIDING QUANTITY SUFFICIENT. DOES NOT USE CALL LIGHT EFFECTIVLY.
--- NOTE | 2020-12-25 19:30 | NUR ---
PT IN AIRBORNE ISOLATION. ON ROOM AIR, ATTENDS ON ONLY. TOOK GOWN OFF EARLIER. CALM, RESTING, EYES CLOSED. BED ALARM ON. CIWA SCORES O DUE TO PT BEING CALM AND RESTING. SL. CPOX IN PLACE 92%. WILL DO VITALS AND ASSESSMENT WHEN HE WAKES UP. DR DEL CID HERE, AWARE. PT RECEIVED 2 DOSES OF ATIVAN EARLIER IN AM ASHIFT DUE TO INCREAED AGITATION AND BEING IMPULSIVE, FALL PRECAUTIONS IN PLACE
--- NOTE | 2020-12-25 22:46 | NUR ---
RESP 24, SATS 92%, NO DISTRESS, EYES CLOSED, WEARING ATTENDS, CONTINUES ON AIRBORNE ISOLATION. BED ALARM ON
--- NOTE | 2020-12-25 23:44 | NUR ---
Awake, moving legs, jackknifed position in bed. Cont in airborne isolation. On room air. lungs with exp wheezing, resp 24-28, sats stayed at 92% during repositioneing. Was incontinent of large amount of urine. skin care done, clean attends and bed linen changed.. coop, took 2100 meds at this time with sips of water. bed alarm on and high fall precautions in place.
--- NOTE | 2020-12-26 01:06 | NUR ---
moving legs, took attends off, incontinent of urine, skin care, chucks and top linen changed. on room air. cpox at bedside sats 92%, R28. procedure explained cooperative, quiet, calm
--- NOTE | 2020-12-26 03:12 | NUR ---
PT IS ON THE CALL LIGHT, CPOX ALARM SENSOR WAS COMING OFF FINGER, IN TO REPOSITION PT, PT ALSO INCONT AT THIS TIME, CALLED RN IN FOR ASSISTANCE CHANGING PTs ATTENDS, WARM BLANKET PROVIDED AT THIS TIME, BED ALARM IS SET, NO FURTHER NEEDS
--- NOTE | 2020-12-26 03:19 | NUR ---
CALL LIGHT ON, PT STATED HE DID NOT KNOW WHAT HAPPENED, WAS ALSO ASKING ABOUT THE LIGHT FROM HIS SPO2 SENSOR, REASURED PT FROM THE DOOR
--- NOTE | 2020-12-26 04:00 | NUR ---
PT CALLED, STATES HE NEEDS TO VOID, IN TO ASSIST PT WTIH URINAL, PT IS TOO SLEEPY AND UNABLE TO SIT UP, RN IN TO ASSIST PT BACK IN BED AND BOOSTED
--- NOTE | 2020-12-26 05:16 | NUR ---
Pt continues on Airborne isolation. CIWA scores have been zero this shift. Has slept off and on. reposition self in bed, On room air, lungs with exp wheezing, CPOX in place. sats 88-92%, tacheipneic at times, R 20-28, No desatting noted when turning and repositioning. Has large R abd hernia. Has been incontinent of urine several times and used urinal x1. Had to be helped to standing position by 2 people, unsteady gait and unable to keep standing position. back to bed. Bed linen changed 2x due to incontinence. Has been coop. CPOX in place,
--- NOTE | 2020-12-26 07:42 | NUR ---
THIS RN RECEIVED REPORT FROM CASSIDY LOREDO. PT APPEARS TO BE AWAKE AND FIDGETY IN BED AT THIS TIME. PT HAS BED ALRAM ON AND BED RAILS UP FOR SAFETY. THIS RN ALFREDO CHECK ON PT SOON, PT ON PRECAUTIONS DUE TO COVID STATUS
--- NOTE | 2020-12-26 07:55 | NUR ---
THIS RN IN PTS ROOM PER PT REQUEST. PT STATES THAT HE "NEEDS TO TAKE A SHIT" AND THAT IT "TOOK YOU FUCKING FOREVER TO GET IN HERE" THIS RN DISCUSSED WITH PT TAHT HE IS IN A COVID ROOM AND STAFF NEEDS TO GET DRESSED. PT ABLE TO HUNCH OVER THE TO BEDSIDE COMMODE WITH MODERATE ASSISTANCE FROM THIS RN. PT ABLE TO VOID BUT HAD NO BM. PT BACK TO BED AND APPEARS TO BE COMFORTABLE WITH BLANKETS PLACED ON HIM. PT ABLE TO TAKE HIS MEDS WELL AND STATES THAT HE IS TIRED AND FALLS ASLEEP QUICKLY. THIS RN WILL REASSESS IF PT IS READY TO EAT AFTER AWHILE.
--- NOTE | 2020-12-26 08:15 | NUR ---
WHILE THIS RN IN PTS ROOM THIS RN NOTED PTS O2 LEVEL TO BE BETWEEN 87-92% ON ROOM AIR. PT REFUSING TO WEAR OXYGEN AT THIS TIME
--- NOTE | 2020-12-26 10:15 | NUR ---
THIS RN IN PTS ROOM TO GIVE PT POTASSIUM THAT WAS ORDERED. LUIS SERRANO IN PTS ROOM, PT REPOSITIONED TO BE ABLE TO EAT HIS BREAKFAST. PT STATES THAT HE WANTS COFFEELUIS TO ORDER HIM MORE. PT STATES THAT HE IS COMFORTABLE AND NEEDS NOTHING MORE.
--- NOTE | 2020-12-26 11:14 | NUR ---
[facility]ED [facility] [phone] SPOKE WITH ASTER. HE STATES HE DID NOT RECEIVED CHART. I WILL REFAX AND HE WILL WATCH FOR IT. FAX CONFIRMATION RECEIVED [id number].
--- NOTE | 2020-12-26 14:05 | NUR ---
SPOKE WITH ASTER AT [facility] IN [place]. HE SAYS HE DID RECEIVE CHART AND MEDICAL IS LOOKING OVER IT NOW. HE STATES THEY HAVE BEEN "SLAMMED WITH REFERRALS" LAST FEW DAYS THEY ARE ONE OF VERY FEW PLACES WHO ACCEPT COVID PATIENTS. HE STATES THEY WOULD NOT BE ABLE TO ADMIT BEFORE TUESDAY. THEY HAVE 4 ADMITS TODAY AND TWO EACH DAY ON THE WEEKEND. HE SAYS HE SHOULD HAVE AN ANSWER THOUGH FROM MEDICAL BY LATER TODAY AND HE WILL LEAVE A MESSAGE IF HE DOES.
--- NOTE | 2020-12-26 15:30 | NUR ---
PT SITTING UP TO CHAIR AT THIS TIME AND APPEARS TO BE DOING WELL. CPOX IN PLACE AND PT IS SATING BETWEEN 89-93% ON ROOM AIR.
--- NOTE | 2020-12-26 16:24 | NUR ---
PATIENT UP IN CHAIR, VITALS AND I&OS CHARTED. PEPSI AND FRESH ICE WATER PROVIDED PER REQUEST. CALL LIGHT IN REACH, NO OTHER NEEDS AT THIS TIME
--- NOTE | 2020-12-26 16:40 | NUR ---
RECEIVED MESSAGE FROM [facility] REQUESTING NURSES PROG NOTES. STATED MEDICAL STAFF IS CONCERNED REGARDING HIS AGGITATION. 24 HOURS NURSES NOTES FAXED TO THEM AT 1640.
--- NOTE | 2020-12-26 16:45 | NUR ---
PT MOTIONED FOR THIS RN TO COME INTO PTS ROOM. PT ATTEMPTING TO STAND UP. PT STATES THAT HE NEEDS TO PEE. THIS RN ASSISTED PT TO BEDSIDE COMMODE. PT ABLE TO VOID, PT WAS ALSO INCONTINENT IN BRIEFS. PT COMLIANT WITH CARE AND STATES THAT HE IS DOING WELL AND NEEDS NOTHING AT THIS TIME.
--- NOTE | 2020-12-26 18:39 | NUR ---
PATIENT SITTING UP IN HIS CHAIR, VITALS AND I&OS CHARTED. CALL LIGHT AND PERSONAL ITEMS IN REACH
--- NOTE | 2020-12-26 19:53 | NUR ---
pt on room air, bed alrm going off, getting out of bed, up to bsc, unsteadsy gait, voided plus he was incvontinent of urine. r were 48 at that time and he was agiotated. calmer, resp 26 at this time, calmer, laying on his right side, 2 sl paten. coop with assessment. lungs with exp wheezing t/o and crackles at bases. large abd hernia on R side. tolerating liquids well. bed alarm on
--- NOTE | 2020-12-26 21:53 | NUR ---
pt tryionmg to get off and on out of bed, alarm going off, medicated w ativan 1mg po, see CIWA
--- NOTE | 2020-12-26 23:05 | NUR ---
BED ALARM GOING OFF, PT TRYING TO PIVOT TO THE BSC, IN TO ASSIST PT, 1PA PIVOT, PT VOIDED, RETURNED BACK TO BED, BED ALARM RESEST
--- NOTE | 2020-12-27 01:45 | NUR ---
Resting, no distress, resp 26, sats 94%, cpox in place, room air, turns and repositioned.
--- NOTE | 2020-12-27 02:09 | NUR ---
bed alarm set off, pt getting up to the bsc, voided and back to bed, bed alarm reset
--- NOTE | 2020-12-27 02:29 | NUR ---
pt resting in bed with eyes closed. appears to be sleeping. respirations 23, sa02 95% on ra. pt does not wake while primary rn in room. call light in reach. room in view of rn station with curtain open. bedalarm active.
--- NOTE | 2020-12-27 04:57 | NUR ---
alrm going odd, crawled out between rails, resp 38 when back to bed, sob with exertion, sats 92%. voided QS urine plus was incontinent. coop with assessment. lungs still with exp wheezing t/o and sob with exertion. resp down to 28 at this time. resp between 22-48. unsteady gait, pt impulsive, procedure explained coop with blood draws
--- NOTE | 2020-12-27 07:10 | NUR ---
WHILE THIS RN WAS LISA EVANS ON ANOTHER PT, PT ATTEMPTING TO STAND UP STATING THAT HE HAD TO PEE. THIS RN ABLE TO GET INTO PTS ROOM TO ASSIST PT WITH THE URINAL. PT BACK TO BED WITH BED ALARM SET.
--- NOTE | 2020-12-27 07:30 | NUR ---
THIS RN CELIAI REPORT FROM CASSIDY LOREDO. PT APPEARS TO BE BACK TO RESTING AT THIS TIME.
--- NOTE | 2020-12-27 08:45 | NUR ---
PT IN BED AT THIS TIME AND APPEARS TO BE COLD, PT REPORTS "IT'S COLDER THAN SHIT" THIS RN RECIVERED PT BAKC UP AFTER GIVING HIM HIS MORNING MEDS. PT ABLE TO SWALLOW WELL AND PT STATES THAT HE FEELS WARMER NOW. BED ALARM SET AT THIS TIME
--- NOTE | 2020-12-27 11:39 | NUR ---
DID PATIENT'S VITALS CHANGED BED LINENS. PATIENT VERY ANXIOUS SO WE USED THE BEDSIDE COMMODE. NURSE GOT ME TWO WARM BLANKETS AN A NEW GOWN.
--- NOTE | 2020-12-27 12:05 | NUR ---
THIS RN IN PTS ROOM DUE TO PT WAVING THIS RN IN. THIS RN BROUGHT IN PTS LUNCH AND ASSISTED PT WITH THE URNIAL AT THIS TIME. PT SET UP FOR LUNCH AT THIS TIME IN CHAIR
--- NOTE | 2020-12-27 13:00 | NUR ---
BEATRICE LOREDO IN PTS ROOM TO ASSIST PT TO RESTROOM AFTER PT GOT UP FROM THE CHAIR AND WAS NOTED TO BE AMBULATING TO RESTROOM BYHIMSELF. PT BACK TO BED BY BEV LOREDO AND BED ALARM SET
--- NOTE | 2020-12-27 13:50 | NUR ---
PT AMBULATES TO BED AT BEDSIDE. CHAIR ALARM SET.
--- NOTE | 2020-12-27 15:34 | NUR ---
SYLVIA RN IN PTS ROOM TO PROVIDE DIRECT OBS ON PT DUE TO PT SHOWING SOME AGITATION AND ANXIETY THIS AFTERNOON. SYLVIA RN GAVE PT 0.5MG OF ATIVAN AT THIS TIME TO GIVE PT SOME COMFORT AND TO KEEP PT SAFE IN BED DUE TO PT BEING A HIGH FALL RISK AND KEEPS GETTING OUT OF BED WITHOUT STAFF.
--- NOTE | 2020-12-27 16:54 | NUR ---
this rn in pts room to provide 1on1 care to pt who is not oriented to place, time or situation. pt keeps stating "get the fuck out of the way, im going to town to get drunk" this rn to provide pt with 0.5mg of ativan due to pts agitiation
--- NOTE | 2020-12-27 18:32 | NUR ---
THIS RN PROVIDING 1ON1 OBS FOR PT DUE TO PTS AGITATION LEVEL
--- NOTE | 2020-12-27 19:20 | NUR ---
NO SHOWER FOR PATIENT ON NURSE REQUEST.
--- NOTE | 2020-12-27 19:30 | NUR ---
BED ALRM GOING OFF, TRYING TO CRWL OUT. HELPED TO BSC, VOIDED SMALL AMOPUNT, BACK TO BED, INCREASED RESP AND SOB WITH EXERETION NOTED, ON ROOM AIR, BED ALARM ON
--- NOTE | 2020-12-27 19:59 | NUR ---
ALRM GOING OFF, VOIDED IN BSC, BED ALRM BACK ON, SOB WITH EXERTION. FALL PRECAUTIONS IN PLACE, LUNGS WITH INS CRACKLES, ON ROOM AIR. CONT TO BE IMPULSIVE, ON AIRBORNE PRECUTIONS
--- NOTE | 2020-12-27 22:14 | NUR ---
alarm going off, up to bsc, voided small amounts of urine, back to bed. resp 35, sob with exertion. took meds well, tolerating sips, bed alarm on, attends on
--- NOTE | 2020-12-27 22:24 | NUR ---
iv infuaing L arm, pt fidgetting w it, pulled iv slightly off, leaking, removed, 2x2 in place, iv tip intact.
--- NOTE | 2020-12-28 01:22 | NUR ---
alrm going off, pt had got self out of bed into bsc. vtook attends off, voided 700cc light yellow urine. Back to bed with assist, unsteady gait. did helped repositon self up in bed. On room air. Lungs much better than earlier on shift. fine crackles R lobe only, otherwise clear bilat. cpox back on. sats 94%, resp 38 on return to bed, then down to 22. calmer, follows instructions. Bed alarm on. Coop with assessment, clean attends back on
--- NOTE | 2020-12-28 03:05 | NUR ---
rESTING, LAYING ON HIS STOMACH, ON ROOM AIR. RESP 19, P60, SATS 96% ROOM AIR. bED ALARM ON, CPOX IN PLACE. CALL LIGHT AND FLUIDS AT BEDSIDE
--- NOTE | 2020-12-28 04:25 | NUR ---
bED ALARM GOING OFF, TRYING TO CRAWL OUT OF BED, UP TO BSC WITH 1PA/ UNSTEADY GAIT. VOIDED 300CC URINE. BACK TO BED RESP 32, SATS 90% ON RETURN, CPOX IN PLACE. BED ALARM ON, CONTINUES ON AIRBORNE ISOLATION
--- NOTE | 2020-12-28 04:31 | NUR ---
PT TURNED CALL LIGHT ON. "iI WANT THAT NOISE OFF, TV TURNED OFF, TOOK CPOX OFF HIS FINGER TOO". WILL CONTINUE TO REASSESS, SATS 94% RESP 22 AT THIS TIME
--- NOTE | 2020-12-28 05:16 | NUR ---
PT CONTINUES ON AIRBORNE ISOLATION PRECAUTION, ON ROOM AIR, LUNGS WITH FINE CRACKLES T/O, CPOX ON AND OFF THIS SHIFT 90-96%. RESP BETWEEN 19-38, SOB WITH EXERTION, SHALLOW BREATHING. HAS SLEPT ON HIS STOMACH, REPOSITIONS SELF. IMPULSIVE WHEN TRYING TO GET UP TO BSC, VOIDING QS URINE. TOLERATING SIPS OF FLUIDS. BED ALARM ON. ATTENDS ON. UNSTEADY GAIT. FOLLOWS INSTRUCTIONS. CIWA SCORES SEE FLOW SHEET. NO S/SX WITHDRAWAL NOTED. HAD A NEW IV RESTARTED, PATENT.
--- NOTE | 2020-12-28 07:30 | NUR ---
THIS RN RECEIVED REPORT FROM CASSIDY LOREDO. PT APPEARS TO BE RESTING AT THIS TIME WITH RESPIRTAIONS NOTED AND BED ALRAM ON.
--- NOTE | 2020-12-28 09:15 | NUR ---
THIS RN IN PTS ROOM TO GIVE PT HIS MRONING MEDS. PT NOT WANTING TO COOPORATE WITH OT. PT STATES " JUST WANT TO GO TO FUCKING SLEEP" THIS RN ENCOURAGED PT TO AT LEAST STAND UP. PT THEN SAT BACK DOWN AND WANTED TO SLEEP. PT HAS NO OTHER NEEDS AT THIS ITME AND PT HAD NO PROBLEM TAKING HIS MEDS
[2020-12-28] MEDS ORDERED: DEXAMETHASONE4 MG PO (09:50)
== END 2020-12-28 11:25 | disposition home or self-care (01) | DRG 177 ==
LOC: ED 13:54 → MS 13:55
PROVIDERS: ADMIT Student in an Organized Health Care Education/Training Program; ATTEND Student in an Organized Health Care Education/Training Program
PROC: 3E0333Z Introduction of Anti-inflammatory into Peripheral Vein, Percutaneous Approach (ICD-10-PCS; principal; 2020-12-24)
PROC: XW033E5 Introduction of Remdesivir Anti-infective into Peripheral Vein, Percutaneous Approach, New Technology Group 5 (ICD-10-PCS; 2020-12-24)
PROC: 8E0ZXY6 Isolation (ICD-10-PCS; 2020-12-24)
DX: U07.1 COVID-19 (principal); J12.82 Pneumonia due to coronavirus disease 2019; J96.01 Acute respiratory failure with hypoxia; E87.1 Hypo-osmolality and hyponatremia; Z66 Do not resuscitate; J02.8 Acute pharyngitis due to other specified organisms; R45.1 Restlessness and agitation; E87.6 Hypokalemia; E78.5 Hyperlipidemia, unspecified; I10 Essential (primary) hypertension; F10.20 Alcohol dependence, uncomplicated; Z98.890 Other specified postprocedural states; Z87.891 Personal history of nicotine dependence; Z88.6 Allergy status to analgesic agent
CPT/HCPCS: 71045; 80048; 80053; 83735; 84484; 85025; 93005; 93010; 94762; 97116; 97162; 97167; 97530; 97535; 99285-25; A9270-GY; C9803; J1100; J1650; J2060; J3411; J3480; J7030; J7050; J7060; J7121; J8540; U0003

== ENCOUNTER 2021-10-23 14:00 | Emergency (ER) | payer MEDICARE, OTHER ==
[~2021-10-23] VITALS: Ht 160 cm; Wt 59.0 kg
[~2021-10-23 14:00] MED LIST changes: +DEXAMETHASONE4 MG PO
[2021-10-23] MEDS ORDERED: BUDESONIDE-FO10.2 GM (14:19)
--- NOTE | 2021-10-24 21:14 | EKG ---
[facility] [address] [place] [address] \T\ T wave abnormality, consider inferior ischemia ST \T\ T wave abnormality, consider anterolateral ischemia Prolonged QT Abnormal ECG When compared with ECG of 24-DEC-2020 14:33, ST no longer depressed in Anterior leads Inverted T waves have replaced nonspecific T wave abnormality in Inferior leads Confirmed by SAMY AMOS MD ([id number]) on 10/24/2021 9:14:24 PM Electronically Signed By: SAMY AMOS MD 10/24/214 PATIENT NAME: MICKI OSMAN Electrocardiogram DATE OF : 47 PHYSICIAN: SAMY AMOS MD REPORT #: [id number] REPORT IS CONFIDENTIAL AND NOT TO BE RELEASED WITHOUT AUTHORIZATION
== END 2021-10-23 17:50 | disposition home or self-care (01) ==
LOC: ED 14:00
DX: R41.82 Altered mental status, unspecified (principal); I10 Essential (primary) hypertension; E78.00 Pure hypercholesterolemia, unspecified; Z87.891 Personal history of nicotine dependence; Z88.8 Allergy status to other drugs, medicaments and biological substances; Z79.51 Long term (current) use of inhaled steroids
CPT/HCPCS: 36415; 70450; 71045; 80053; 81001; 84484; 85025; 93005; 93010; 99285-25; G0480

== ENCOUNTER 2021-11-27 21:55 | Emergency (ER) | payer MEDICARE, OTHER ==
[~2021-11-27] VITALS: Ht 160 cm; Wt 65.7 kg
[~2021-11-27 21:55] MED LIST changes: +BUDESONIDE-FO10.2 GM
--- NOTE | 2021-11-28 08:18 | EKG ---
[facility] [address] [facility] [place] [address] Signed Normal sinus rhythm Left axis deviation Nonspecific intraventricular block T wave abnormality, consider anterolateral ischemia Abnormal ECG When compared with ECG of 23-OCT-2021 14:02, Significant changes have occurred Confirmed by SAMY AMOS MD ([id number]) on 11/28/2021 8:18:14 AM Electronically Signed By: SAMY AMOS MD 11/28/21 0818 PATIENT NAME: MICKI OSMAN Electrocardiogram DATE OF : 47 PHYSICIAN: SAMY AMOS MD REPORT #: [id number] REPORT IS CONFIDENTIAL AND NOT TO BE RELEASED WITHOUT AUTHORIZATION
== END 2021-11-28 08:23 | disposition home or self-care (01) ==
LOC: ED 21:55
DX: F03.90 Unspecified dementia, unspecified severity, without behavioral disturbance, psychotic disturbance, mood disturbance, and anxiety (principal); R26.2 Difficulty in walking, not elsewhere classified; I10 Essential (primary) hypertension; Z20.822 Contact with and (suspected) exposure to COVID-19; Z79.899 Other long term (current) drug therapy
CPT/HCPCS: 36415; 51701; 70450; 70496; 70498; 80053; 81001; 83735; 84484; 85025; 85610; 85730; 87502; 93005; 93010; 99285-25; A9270; C9803; G0480; J3411; J7030; Q9967; U0003

== ENCOUNTER 2022-01-07 01:32 | Emergency (ER) | payer MEDICARE, OTHER ==
[~2022-01-07] VITALS: Ht 160 cm; Wt 65.7 kg
== END 2022-01-07 04:15 | disposition home or self-care (01) ==
LOC: ED 01:32
DX: S01.01XA Laceration without foreign body of scalp, initial encounter (principal); I63.9 Cerebral infarction, unspecified; I10 Essential (primary) hypertension; W19.XXXA Unspecified fall, initial encounter; Z87.891 Personal history of nicotine dependence
CPT/HCPCS: 12002; 70450; 99283-25; A9270

== ENCOUNTER 2023-01-16 09:37 | Emergency (ER) | payer MEDICARE, OTHER ==
[~2023-01-16] VITALS: Ht 160 cm; Wt 82.9 kg
--- OUTSIDE RECORDS SUMMARY | ~2023-01-16 | XMS | Continuity of Care Document ---
Demographics + + + | Address | [id number] [place] [address] RD | | | [place] [id number] | + + + | Preferred Language | Unknown | + + + | Marital Status | | + + + | Mu-Ism Affiliation | Unknown | + + + | Race | or | + + + | Ethnic Group | Not or | + + + Author + + + | Author | [facility] | + + + | Organization | [facility] | + + + | Address | [address] [facility] | | | [place] [address] | + + + | Phone | | + + + Care Team Providers + + + + | Care Flat Surfacer Name | Role | Phone | + + + + Unavailable | Unavailable | + + + + Unavailable | Unavailable | + + + + Unavailable | Unavailable | + + + + Allergies No information. Encounters No information. Functional Status No information. Immunizations + + + + | date | description | facility | + + + + | 2016-02-12 00:00 | Tdap | [facility] | + + + + | 2016-02-12 00:00 | Tdap | [facility] | + + + + | 2016-04-10 00:00 | Tdap | [facility] | + + + + | 2016-04-10 00:00 | Tdap | [facility] | + + + + | 2014-03-17 00:00 | DTaP | [facility] | + + + + | 2014-03-17 00:00 | DTaP | [facility] | + + + + Medications + + + + | date | description | facility | + + + + | 2021-12-07 00:00 | DOCUSATE SODIUM | [facility] | + + + + | 2022-01-13 00:00 | DOCUSATE SODIUM | [facility] | + + + + | 2022-01-18 00:00 | DOCUSATE SODIUM | [facility] | + + + + | 2022-01-13 00:00 | Budesonide/Formoterol | [facility] | | | Fumarate | | + + + + | 2022-01-18 00:00 | Budesonide/Formoterol | [facility] | | | Fumarate | | + + + + | 2021-12-07 00:00 | IPRATROPIUM/ALBUTEROL | [facility] | | | SULFATE | | + + + + | 2022-01-13 00:00 | IPRATROPIUM/ALBUTEROL | [facility] | | | SULFATE | | + + + + | 2022-01-18 00:00 | IPRATROPIUM/ALBUTEROL | [facility] | | | SULFATE | | + + + + | 2021-12-07 00:00 | IPRATROPIUM/ALBUTEROL | [facility] | | | SULFATE | | + + + + | 2022-01-13 00:00 | IPRATROPIUM/ALBUTEROL | [facility] | | | SULFATE | | + + + + | 2022-01-18 00:00 | IPRATROPIUM/ALBUTEROL | [facility] | | | SULFATE | | + + + + | 2022-01-11 00:00 | CEPHALEXIN | [facility] | + + + + | 2020-12-28 00:00 | DEXAMETHASONE | [facility] | + + + + | 2020-12-28 00:00 | DEXAMETHASONE | [facility] | + + + + | 2021-12-07 00:00 | DIAZEPAM | [facility] | + + + + | 2022-01-13 00:00 | DIAZEPAM | [facility] | + + + + | 2022-01-18 00:00 | DIAZEPAM | [facility] | + + + + | 2021-12-07 00:00 | IBUPROFEN | [facility] | + + + + | 2022-01-13 00:00 | IBUPROFEN | [facility] | + + + + | 2022-01-18 00:00 | IBUPROFEN | [facility] | + + + + | 2021-12-07 00:00 | IBUPROFEN | [facility] | + + + + | 2022-01-13 00:00 | IBUPROFEN | [facility] | + + + + | 2022-01-18 00:00 | IBUPROFEN | [facility] | + + + + | 2021-12-07 00:00 | CEPHALEXIN | [facility] | + + + + | 2022-01-13 00:00 | CEPHALEXIN | [facility] | + + + + | 2022-01-18 00:00 | CEPHALEXIN | [facility] | + + + + | 2021-12-07 00:00 | LISINOPRIL | [facility] | + + + + | 2022-01-13 00:00 | LISINOPRIL | [facility] | + + + + | 2022-01-18 00:00 | LISINOPRIL | [facility] | + + + + | 2021-12-07 00:00 | CHOLECALCIFEROL (VITAMIN | [facility] | | | D3) | | + + + + | 2022-01-13 00:00 | CHOLECALCIFEROL (VITAMIN | [facility] | | | D3) | | + + + + | 2022-01-18 00:00 | CHOLECALCIFEROL (VITAMIN | [facility] | | | D3) | | + + + + | 2021-12-07 00:00 | HYDROCODONE | [facility] | | | BIT/ACETAMINOPHEN | | + + + + | 2022-01-13 00:00 | HYDROCODONE | [facility] | | | BIT/ACETAMINOPHEN | | + + + + | 2022-01-18 00:00 | [facility]OCODONE | [facility] | | | BIT/ACETAMINOPHEN | | + + + + | 2021-12-07 00:00 | LOPERAMIDE HCL | [facility] | + + + + | 2022-01-13 00:00 | LOPERAMIDE HCL | [facility] | + + + + | 2022-01-18 00:00 | LOPERAMIDE HCL | [facility] | + + + + | 2022-01-13 00:00 | DONEPEZIL HCL | [facility] | + + + + | 2022-01-18 00:00 | DONEPEZIL HCL | [facility] | + + + + Problems + + + + | date | description | facility | + + + + | 2014-03-17 00:00 | Rib pain | [facility] | + + + + | 2014-03-17 00:00 | Rib pain | [facility] | + + + + | 2014-05-27 00:00 | Intoxication | [facility] | + + + + | 2014-05-27 00:00 | Intoxication | [facility] | + + + + | 2014-09-13 00:00 | Abdominal hernia | [facility] | + + + + | 2014-09-13 00:00 | Abdominal hernia | [facility] | + + + + | 2016-01-02 00:00 | Alcoholic intoxication | [facility] | + + + + | 2016-01-02 00:00 | Alcoholic intoxication | [facility] | + + + + | 2016-01-02 00:00 | Abrasion of scalp | [facility] | + + + + | 2016-01-02 00:00 | Abrasion of scalp | [facility] | + + + + | 2016-01-02 00:00 | Closed head injury | [facility] | + + + + | 2016-01-02 00:00 | Closed head injury | [facility] | + + + + | 2016-01-02 00:00 | Accidental fall | [facility] | + + + + | 2016-01-02 00:00 | Accidental fall | [facility] | + + + + | 2016-02-12 00:00 | Abrasion of forehead | [facility] | + + + + | 2016-02-12 00:00 | Abrasion of forehead | [facility] | + + + + | 2016-02-12 00:00 | Abrasion of left knee, | [facility] | | | initial encounter | | + + + + | 2016-02-12 00:00 | Abrasion of left knee, | [facility] | | | initial encounter | | + + + + | 2016-03-23 00:00 | Alcoholism | [facility] | + + + + | 2016-03-23 00:00 | Alcoholism | [facility] | + + + + | 2016-03-23 00:00 | Accident due to mechanical | [facility] | | | fall without injury | | + + + + | 2016-03-23 00:00 | Accident due to mechanical | [facility] | | | fall without injury | | + + + + | 2016-04-09 00:00 | Facial laceration | [facility] | + + + + | 2016-04-09 00:00 | Facial laceration | [facility] | + + + + | 2016-04-10 00:00 | Acute alcoholic | [facility] | | | intoxication | | + + + + | 2016-04-10 00:00 | Acute alcoholic | [facility] | | | intoxication | | + + + + | 2016-04-10 00:00 | Subarachnoid hemorrhage | [facility] | | | following injury | | + + + + | 2016-04-10 00:00 | Subarachnoid hemorrhage | [facility] | | | following injury | | + + + + | 2016-07-09 00:00 | Chronic alcoholic | [facility] | | | intoxication | | + + + + | 2016-07-09 00:00 | Chronic alcoholic | [facility] | | | intoxication | | + + + + | 2017-06-15 00:00 | Chronic alcoholic | [facility] | | | intoxication without | | | | complication | | + + + + | 2017-06-15 00:00 | Chronic alcoholic | [facility] | | | intoxication without | | | | complication | | + + + + | 2017-11-08 00:00 | Encounter for medical | [facility] | | | screening examination | | + + + + | 2017-11-08 00:00 | Encounter for medical | [facility] | | | screening examination | | + + + + | 2017-12-07 00:00 | Laceration of right upper | [facility] | | | arm | | + + + + | 2017-12-07 00:00 | Laceration of right upper | [facility] | | | arm | | + + + + | 2017-12-28 00:00 | Alcohol abuse | [facility] | + + + + | 2017-12-28 00:00 | Alcohol abuse | [facility] | + + + + | 2020-12-24 00:00 | Pneumonia due to severe | [facility] | | | acute respiratory syndrome | | | | coronavirus 2 (SARS-CoV-2) | | + + + + | 2020-12-24 00:00 | Pneumonia due to severe | [facility] | | | acute respiratory syndrome | | | | coronavirus 2 (SARS-CoV-2) | | + + + + | 2021-11-28 00:00 | Dementia | [facility] | + + + + | 2021-11-28 00:00 | Dementia | [facility] | + + + + | 2021-11-28 00:00 | Difficulty walking | [facility] | + + + + | 2021-11-28 00:00 | Difficulty walking | [facility] | + + + + | 2022-01-07 00:00 | Laceration of scalp | [facility] | + + + + Procedures No information. Results/Labs +--------+--------+ +---------+--------+---------+ | test | date | facility | value | unit | notes | +--------+--------+ +---------+--------+---------+ + + | Result panel 1 | + + + + + +-------+ + + | | 2021-11-27 | [facility] | 7.4 | (missing) | (missing) | | (unavailable | 22:00 | [facility] | | | | + + + +-------+ + + + + | Result panel 2 | + + + + + +--------+ + + | | 2021-11-27 | [facility] | 69.5 | (missing) | (missing) | | (unavailable | 22:00 | [facility] | | | | + + + +--------+ + + + + | Result panel 3 | + + + + + +--------+ + + | | 2021-11-27 | [facility] | 17.3 | (missing) | (missing) | | (unavailable | 22:00 | [facility] | | | | + + + +--------+ + + + + | Result panel 4 | + + + + + +-------+ + + | | 2021-11-27 | [facility] | 5.8 | (missing) | (missing) | | (unavailable | 22:00 | [facility] | | | | + + + +-------+ + + + + | Result panel 5 | + + + + + +-------+ + + | | 2021-11-27 | [facility] | 6.8 | (missing) | (missing) | | (unavailable | 22:00 | [facility] | | | | + + + +-------+ + + + + | Result panel 6 | + + + + + +-------+ + + | | 2021-11-27 | [facility] | 0.6 | (missing) | (missing) | | (unavailable | 22:00 | [facility] | | | | + + + +-------+ + + + + | Result panel 7 | + + + + + +--------+ + + | | 2021-11-27 | [facility] | 13.6 | (missing) | (missing) | | (unavailable | 22:00 | [facility] | | | | + + + +--------+ + + + + | Result panel 8 | + + + + + +--------+ + + | | 2021-11-27 | [facility] | 1.07 | (missing) | (missing) | | (unavailable | 22:00 | [facility] | | | | + + + +--------+ + + + + | Result panel 9 | + + + + + +--------+ + + | | 2021-11-27 | [facility] | 27.6 | (missing) | (missing) | | (unavailable | 22:00 | [facility] | | | | + + + +--------+ + + + + | Result panel 10 | + + + + + +--------+ + + | | 2021-11-27 | [facility] | 4.07 | (missing) | (missing) | | (unavailable | 22:00 | [facility] | | | | + + + +--------+ + + + + | Result panel 11 | + + + + + +--------+ + + | | 2021-11-27 | [facility] | 13.6 | (missing) | (missing) | | (unavailable | 22:00 | [facility] | | | | + + + +--------+ + + + + | Result panel 12 | + + + + + +--------+ + + | | 2021-11-27 | [facility] | 1.07 | (missing) | (missing) | | (unavailable | 22:00 | [facility] | | | | + + + +--------+ + + + + | Result panel 13 | + + + + + +--------+ + + | | 2021-11-27 | [facility] | 27.6 | (missing) | (missing) | | (unavailable | 22:00 | [facility] | | | | + + + +--------+ + + + + | Result panel 14 | + + + + + +--------+ + + | | 2021-11-27 | [facility] | 12.9 | (missing) | (missing) | | (unavailable | 22:00 | [facility] | | | | + + + +--------+ + + + + | Result panel 15 | + + + + + +------+---------+ + | | 2021-11-27 | [facility] | 97 | mg/dL | (missing) | | (unavailable | 22:00 | [facility] | | | | + + + +------+---------+ + + + | Result panel 16 | + + + + + +------+---------+ + | | 2021-11-27 | [facility] | 17 | mg/dL | (missing) | | (unavailable | 22:00 | [facility] | | | | + + + +------+---------+ + + + | Result panel 17 | + + + + + +--------+---------+ + | | 2021-11-27 | [facility] | 1.12 | mg/dL | (missing) | | (unavailable | 22:00 | [facility] | | | | + + + +--------+---------+ + + + | Result panel 18 | + + + + + +------+ + + | | 2021-11-27 | [facility] | 69 | (missing) | (missing) | | (unavailable | 22:00 | [facility] | | | | + + + +------+ + + + + | Result panel 19 | + + + + + +---------+ + + | | 2021-11-27 | [facility] | 15.17 | (missing) | (missing) | | (unavailable | 22:00 | [facility] | | | | + + + +---------+ + + + + | Result panel 20 | + + + + + +-------+ + + | | 2021-11-27 | [facility] | 143 | (missing) | (missing) | | (unavailable | 22:00 | [facility] | | | | + + + +-------+ + + + + | Result panel 21 | + + + + + +-------+ + + | | 2021-11-27 | [facility] | 4.1 | (missing) | (missing) | | (unavailable | 22:00 | [facility] | | | | + + + +-------+ + + + + | Result panel 22 | + + + + + +--------+ + + | | 2021-11-27 | [facility] | 38.2 | (missing) | (missing) | | (unavailable | 22:00 | [facility] | | | | + + + +--------+ + + + + | Result panel 23 | + + + + + +-------+ + + | | 2021-11-27 | [facility] | 106 | (missing) | (missing) | | (unavailable | 22:00 | [facility] | | | | + + + +-------+ + + + + | Result panel 24 | + + + + + +------+ + + | | 2021-11-27 | [facility] | 25 | (missing) | (missing) | | (unavailable | 22:00 | [facility] | | | | + + + +------+ + + + + | Result panel 25 | + + + + + +--------+ + + | | 2021-11-27 | [facility] | 16.1 | (missing) | (missing) | | (unavailable | 22:00 | [facility] | | | | + + + +--------+ + + + + | Result panel 26 | + + + + + +-------+---------+ + | | 2021-11-27 | [facility] | 8.2 | mg/dL | (missing) | | (unavailable | 22:00 | [facility] | | | | + + + +-------+---------+ + + + | Result panel 27 | + + + + + +-------+---------+ + | | 2021-11-27 | [facility] | 1.8 | mg/dL | (missing) | | (unavailable | 22:00 | [facility] | | | | + + + +-------+---------+ + + + | Result panel 28 | + + + + + +-------+ + + | | 2021-11-27 | [facility] | 6.7 | (missing) | (missing) | | (unavailable | 22:00 | [facility] | | | | + + + +-------+ + + + + | Result panel 29 | + + + + + +-------+ + + | | 2021-11-27 | [facility] | 3.5 | (missing) | (missing) | | (unavailable | 22:00 | [facility] | | | | + + + +-------+ + + + + | Result panel 30 | + + + + + +-------+ + + | | 2021-11-27 | [facility] | 3.2 | (missing) | (missing) | | (unavailable | 22:00 | [facility] | | | | + + + +-------+ + + + + | Result panel 31 | + + + + + +--------+ + + | | 2021-11-27 | [facility] | 1.09 | (missing) | (missing) | | (unavailable | 22:00 | [facility] | | | | + + + +--------+ + + + + | Result panel 32 | + + + + + +-------+ + + | | 2021-11-27 | [facility] | 0.6 | (missing) | (missing) | | (unavailable | 22:00 | [facility] | | | | + + + +-------+ + + + + | Result panel 33 | + + + + + +--------+ + + | | 2021-11-27 | [facility] | 93.9 | (missing) | (missing) | | (unavailable | 22:00 | [facility] | | | | + + + +--------+ + + + + | Result panel 34 | + + + + + +------+ + + | | 2021-11-27 | [facility] | 14 | (missing) | (missing) | | (unavailable | 22:00 | [facility] | | | | + + + +------+ + + + + | Result panel 35 | + + + + + +------+ + + | | 2021-11-27 | [facility] | 11 | (missing) | (missing) | | (unavailable | 22:00 | [facility] | | | | + + + +------+ + + + + | Result panel 36 | + + + + + +-------+ + + | | 2021-11-27 | [facility] | 132 | (missing) | (missing) | | (unavailable | 22:00 | [facility] | | | | + + + +-------+ + + + + | Result panel 37 | + + + + + +--------+ + + | | 2021-11-27 | [facility] | 17.0 | (missing) | (missing) | | (unavailable | 22:00 | [facility] | | | | + + + +--------+ + + + + | Result panel 38 | + + + + + +--------+ + + | | 2021-11-27 | [facility] | 31.8 | (missing) | (missing) | | (unavailable | 22:00 | [facility] | | | | + + + +--------+ + + + + | Result panel 39 | + + + + + +--------+ + + | | 2021-11-27 | [facility] | 33.8 | (missing) | (missing) | | (unavailable | 22:00 | [facility] | | | | + + + +--------+ + + + + | Result panel 40 | + + + + + +--------+ + + | | 2021-11-27 | [facility] | 13.6 | (missing) | (missing) | | (unavailable | 22:00 | [facility] | | | | + + + +--------+ + + + + | Result panel 41 | + + + + + +--------+ + + | | 2021-11-27 | [facility] | 1.07 | (missing) | (missing) | | (unavailable | 22:00 | [facility] | | | | + + + +--------+ + + + + | Result panel 42 | + + + + + +--------+ + + | | 2021-11-27 | [facility] | 27.6 | (missing) | (missing) | | (unavailable | 22:00 | [facility] | | | | + + + +--------+ + + + + | Result panel 43 | + + + + + +--------+ + + | | 2021-11-27 | [facility] | 13.8 | (missing) | (missing) | | (unavailable | 22:00 | [facility] | | | | + + + +--------+ + + + + | Result panel 44 | + + + + + +-------+ + + | | 2021-11-27 | [facility] | 275 | (missing) | (missing) | | (unavailable | 22:00 | [facility] | | | | + + + +-------+ + + + + | Result panel 45 | + + + + + +-------+ + + | | 2021-11-27 | [facility] | 101 | (missing) | (missing) | | (unavailable | 22:22 | [facility] | | | | + + + +-------+ + + + + | Result panel 46 | + + + + + +-------+ + + | | 2021-11-27 | [facility] | 101 | (missing) | (missing) | | (unavailable | 22:22 | [facility] | | | | + + + +-------+ + + + + | Result panel 47 | + + + + + +-------+ + + | | 2021-11-27 | [facility] | 101 | (missing) | (missing) | | (unavailable | 22:22 | [facility] | | | | + + + +-------+ + + + + | Result panel 48 | + + + + + + + + + | | 2021-11-27 | [facility] | YELLOW | (missing) | (missing) | | (unavailable | 23:59 | [facility] | | | | + + + + + + + + + | Result panel 49 | + + + + + +---------+ + + | | 2021-11-27 | [facility] | CLEAR | (missing) | (missing) | | (unavailable | 23:59 | [facility] | | | | + + + +---------+ + + + + | Result panel 50 | + + + + + + + + + | | 2021-11-27 | [facility] | NEGATIVE | (missing) | (missing) | | (unavailable | 23:59 | [facility] | | | | + + + + + + + + + | Result panel 51 | + + + + + + + + + | | 2021-11-27 | [facility] | NEGATIVE | (missing) | (missing) | | (unavailable | 23:59 | [facility] | | | | + + + + + + + + + | Result panel 52 | + + + + + +------+ + + | | 2021-11-27 | [facility] | No | (missing) | (missing) | | (unavailable | 23:59 | [facility] | | | | + + + +------+ + + + + | Result panel 53 | + + + + + +--------+ + + | | 2021-11-27 | [facility] | CATH | (missing) | (missing) | | (unavailable | 23:59 | [facility] | | | | + + + +--------+ + + + + | Result panel 54 | + + + + + + + + + | | 2021-11-27 | [facility] | NEGATIVE | (missing) | (missing) | | (unavailable | 23:59 | [facility] | | | | + + + + + + + + + | Result panel 55 | + + + + + +---------+ + + | | 2021-11-27 | [facility] | 1.015 | (missing) | (missing) | | (unavailable | 23:59 | [facility] | | | | + + + +---------+ + + + + | Result panel 56 | + + + + + + + + + | | 2021-11-27 | [facility] | NEGATIVE | (missing) | (missing) | | (unavailable | 23:59 | [facility] | | | | + + + + + + + + + | Result panel 57 | + + + + + +-------+ + + | | 2021-11-27 | [facility] | 6.0 | (missing) | (missing) | | (unavailable | 23:59 | [facility] | | | | + + + +-------+ + + + + | Result panel 58 | + + + + + + + + + | | 2021-11-27 | [facility] | NEGATIVE | (missing) | (missing) | | (unavailable | 23:59 | [facility] | | | | + + + + + + + + + | Result panel 59 | + + + + + +-------+ + + | | 2021-11-27 | [facility] | 1.0 | (missing) | (missing) | | (unavailable | 23:59 | [facility] | | | | + + + +-------+ + + + + | Result panel 60 | + + + + + + + + + | | 2021-11-27 | [facility] | NEGATIVE | (missing) | (missing) | | (unavailable | 23:59 | [facility] | | | | + + + + + + + + + | Result panel 61 | + + + + + + + + + | | 2021-11-27 | [facility] | NEGATIVE | (missing) | (missing) | | (unavailable | 23:59 | [facility] | | | | + + + + + + + + + | Result panel 62 | + + + + + +------+ + + | | 2021-11-27 | [facility] | No | (missing) | (missing) | | (unavailable | 23:59 | [facility] | | | | + + + +------+ + + + + | Result panel 63 | + + + + + +--------+ + + | | 2021-11-27 | [facility] | CATH | (missing) | (missing) | | (unavailable | 23:59 | [facility] | | | | + + + +--------+ + + + + | Result panel 64 | + + + + + + + + + | | 2021-11-27 | [facility] | POSITIVE | (missing) | (missing) | | (unavailable | 23:59 | [facility] | | | | + + + + + + + + + | Result panel 65 | + + + + + + + + + | | 2021-11-27 | [facility] | NEGATIVE | (missing) | (missing) | | (unavailable | 23:59 | [facility] | | | | + + + + + + + + + | Result panel 66 | + + + + + + + + + | | 2021-11-27 | [facility] | NEGATIVE | (missing) | (missing) | | (unavailable | 23:59 | [facility] | | | | + + + + + + + + + | Result panel 67 | + + + + + + + + + | | 2021-11-27 | [facility] | NEGATIVE | (missing) | (missing) | | (unavailable | 23:59 | [facility] | | | | + + + + + + + + + | Result panel 68 | + + + + + + + + + | | 2021-11-27 | [facility] | NEGATIVE | (missing) | (missing) | | (unavailable | 23:59 | [facility] | | | | + + + + + + + + + | Result panel 69 | + + + + + + + + + | | 2021-11-27 | [facility] | NEGATIVE | (missing) | (missing) | | (unavailable | 23:59 | [facility] | | | | + + + + + + + + + | Result panel 70 | + + + + + + + + + | | 2021-11-27 | [facility] | NEGATIVE | (missing) | (missing) | | (unavailable | 23:59 | [facility] | | | | + + + + + + + + + | Result panel 71 | + + + + + + + + + | | 2021-11-27 | [facility] | NEGATIVE | (missing) | (missing) | | (unavailable | 23:59 | [facility] | | | | + + + + + + + + + | Result panel 72 | + + + + + + + + + | | 2021-11-27 | [facility] | NEGATIVE | (missing) | (missing) | | (unavailable | 23:59 | [facility] | | | | + + + + + + + + + | Result panel 73 | + + + + + + + + + | | 2021-11-27 | [facility] | NEGATIVE | (missing) | (missing) | | (unavailable | 23:59 | [facility] | | | | + + + + + + + + + | Result panel 74 | + + + + + + + + + | | 2021-11-27 | [facility] | NEGATIVE | (missing) | (missing) | | (unavailable | 23:59 | [facility] | | | | + + + + + + + + + | Result panel 75 | + + + + + + + + + | | 2021-11-27 | [facility] | NEGATIVE | (missing) | (missing) | | (unavailable | 23:59 | [facility] | | | | + + + + + + + + + | Result panel 76 | + + + + + + + + + | | 2021-11-27 | [facility] | NEGATIVE | (missing) | (missing) | | (unavailable | 23:59 | [facility] | | | | + + + + + + + + + | Result panel 77 | + + + + + +------+ + + | | 2021-11-27 | [facility] | No | (missing) | (missing) | | (unavailable | 23:59 | [facility] | | | | + + + +------+ + + + + | Result panel 78 | + + + + + +--------+ + + | | 2021-11-27 | [facility] | CATH | (missing) | (missing) | | (unavailable | 23:59 | [facility] | | | | + + + +--------+ + + + + | Result panel 79 | + + + + + + + + + | | 2021-11-28 | [facility] | NEGATIVE | (missing) | (missing) | | (unavailable | 00:49 | [facility] | | | | + + + + + + + + + | Result panel 80 | + + + + + + + + + | | 2021-11-28 | [facility] | NEGATIVE | (missing) | (missing) | | (unavailable | 00:49 | [facility] | | | | + + + + + + + + + | Result panel 81 | + + + + + + + + + | | 2021-11-28 | [facility] | NEGATIVE | (missing) | (missing) | | (unavailable | 00:49 | [facility] | | | | + + + + + + + + + | Result panel 82 | + + + + + + + + + | | 2021-11-28 | [facility] | NEGATIVE | (missing) | (missing) | | (unavailable | 00:49 | [facility] | | | | + + + + + + + + + | Result panel 83 | + + + + + + + + + | | 2021-11-28 | [facility] | NEGATIVE | (missing) | (missing) | | (unavailable | 00:49 | [facility] | | | | + + + + + + + + + | Result panel 84 | + + + + + + + + + | | 2021-11-28 | [facility] | NEGATIVE | (missing) | (missing) | | (unavailable | 00:49 | [facility] | | | | + + + + + + + + + | Result panel 85 | + + + + + + + + + | | 2021-11-28 | [facility] | NEGATIVE | (missing) | (missing) | | (unavailable | 00:49 | [facility] | | | | + + + + + + + + + | Result panel 86 | + + + + + + + + + | | 2021-11-28 | [facility] | NEGATIVE | (missing) | (missing) | | (unavailable | 00:49 | [facility] | | | | + + + + + + + + + | Result panel 87 | + + + + + + + + + | | 2021-11-28 | [facility] | NEGATIVE | (missing) | (missing) | | (unavailable | 00:49 | [facility] | | | | + + + + + + + + + | Result panel 88 | + + + + + + + + + | | 2021-11-28 | [facility] | NEGATIVE | (missing) | (missing) | | (unavailable | 00:49 | [facility] | | | | + + + + + + + + + | Result panel 89 | + + + + + + + + + | | 2021-11-28 | [facility] | NEGATIVE | (missing) | (missing) | | (unavailable | 00:49 | [facility] | | | | + + + + + + + + + | Result panel 90 | + + + + + + + + + | | 2021-11-28 | [facility] | NEGATIVE | (missing) | (missing) | | (unavailable | 00:49 | [facility] | | | | + + + + + + + + + | Result panel 91 | + + + + + +------+ + + | | 2021-11-28 | [facility] | <3 | (missing) | (missing) | | (unavailable | 05:50 | [facility] | | | | + + + +------+ + + + + | Result panel 92 | + + + + + +------+ + + | | 2021-11-28 | [facility] | <3 | (missing) | (missing) | | (unavailable | 05:50 | [facility] | | | | + + + +------+ + + + + | Result panel 93 | + + + + + +------+ + + | | 2021-11-28 | [facility] | <3 | (missing) | (missing) | | (unavailable | 05:50 | [facility] | | | | + + + +------+ + + + + | Result panel 94 | + + + + + +------+---------+ + | | 2022-01-11 | [facility] | 76 | mg/dL | (missing) | | (unavailable | 10:42 | [facility] | | | | + + + +------+---------+ + + + | Result panel 95 | + + + + + +------+---------+ + | | 2022-01-11 | [facility] | 12 | mg/dL | (missing) | | (unavailable | 10:42 | [facility] | | | | + + + +------+---------+ + + + | Result panel 96 | + + + + + +--------+---------+ + | | 2022-01-11 | [facility] | 0.76 | mg/dL | (missing) | | (unavailable | 10:42 | [facility] | | | | + + + +--------+---------+ + + + | Result panel 97 | + + + + + +------+ + + | | 2022-01-11 | [facility] | 94 | (missing) | (missing) | | (unavailable | 10:42 | [facility] | | | | + + + +------+ + + + + | Result panel 98 | + + + + + +---------+ + + | | 2022-01-11 | [facility] | 15.78 | (missing) | (missing) | | (unavailable | 10:42 | [facility] | | | | + + + +---------+ + + + + | Result panel 99 | + + + + + +-------+ + + | | 2022-01-11 | [facility] | 136 | (missing) | (missing) | | (unavailable | 10:42 | [facility] | | | | + + + +-------+ + + + + | Result panel 100 | + + + + + +-------+ + + | | 2022-01-11 | [facility] | 4.1 | (missing) | (missing) | | (unavailable | 10:42 | [facility] | | | | + + + +-------+ + + + + | Result panel 101 | + + + + + +-------+ + + | | 2022-01-11 | [facility] | 102 | (missing) | (missing) | | (unavailable | 10:42 | [facility] | | | | + + + +-------+ + + + + | Result panel 102 | + + + + + +------+ + + | | 2022-01-11 | [facility] | 27 | (missing) | (missing) | | (unavailable | 10:42 | [facility] | | | | + + + +------+ + + + + | Result panel 103 | + + + + + +--------+ + + | | 2022-01-11 | [facility] | 11.1 | (missing) | (missing) | | (unavailable | 10:42 | [facility] | | | | + + + +--------+ + + + + | Result panel 104 | + + + + + +-------+---------+ + | | 2022-01-11 | [facility] | 7.9 | mg/dL | (missing) | | (unavailable | 10:42 | [facility] | | | | + + + +-------+---------+ + + + | Result panel 105 | + + + + + +-------+---------+ + | | 2022-01-11 | [facility] | 2.0 | mg/dL | (missing) | | (unavailable | 10:42 | [facility] | | | | + + + +-------+---------+ + + + | Result panel 106 | + + + + + +-------+ + + | | 2022-01-11 | [facility] | 6.5 | (missing) | (missing) | | (unavailable | 10:42 | [facility] | | | | + + + +-------+ + + + + | Result panel 107 | + + + + + +-------+ + + | | 2022-01-11 | [facility] | 3.4 | (missing) | (missing) | | (unavailable | 10:42 | [facility] | | | | + + + +-------+ + + + + | Result panel 108 | + + + + + +-------+ + + | | 2022-01-11 | [facility] | 3.1 | (missing) | (missing) | | (unavailable | 10:42 | [facility] | | | | + + + +-------+ + + + + | Result panel 109 | + + + + + +--------+ + + | | 2022-01-11 | [facility] | 1.10 | (missing) | (missing) | | (unavailable | 10:42 | [facility] | | | | + + + +--------+ + + + + | Result panel 110 | + + + + + +-------+ + + | | 2022-01-11 | [facility] | 0.7 | (missing) | (missing) | | (unavailable | 10:42 | [facility] | | | | + + + +-------+ + + + + | Result panel 111 | + + + + + +------+ + + | | 2022-01-11 | [facility] | 38 | (missing) | (missing) | | (unavailable | 10:42 | [facility] | | | | + + + +------+ + + + + | Result panel 112 | + + + + + +-----+ + + | | 2022-01-11 | [facility] | 9 | (missing) | (missing) | | (unavailable | 10:42 | [facility] | | | | + + + +-----+ + + + + | Result panel 113 | + + + + + +-------+ + + | | 2022-01-11 | [facility] | 137 | (missing) | (missing) | | (unavailable | 10:42 | [facility] | | | | + + + +-------+ + + + + | Result panel 114 | + + + + + +--------+ + + | | 2022-01-11 | [facility] | 19.3 | (missing) | (missing) | | (unavailable | 10:42 | [facility] | | | | + + + +--------+ + + + + | Result panel 115 | + + + + + +-------+ + + | | 2022-01-11 | [facility] | 7.1 | (missing) | (missing) | | (unavailable | 10:42 | [facility] | | | | + + + +-------+ + + + + | Result panel 116 | + + + + + +--------+ + + | | 2022-01-11 | [facility] | 3.17 | (missing) | (missing) | | (unavailable | 10:42 | [facility] | | | | + + + +--------+ + + + + | Result panel 117 | + + + + + +--------+ + + | | 2022-01-11 | [facility] | 10.1 | (missing) | (missing) | | (unavailable | 10:42 | [facility] | | | | + + + +--------+ + + + + | Result panel 118 | + + + + + +--------+ + + | | 2022-01-11 | [facility] | 30.0 | (missing) | (missing) | | (unavailable | 10:42 | [facility] | | | | + + + +--------+ + + + + | Result panel 119 | + + + + + +--------+ + + | | 2022-01-11 | [facility] | 94.7 | (missing) | (missing) | | (unavailable | 10:42 | [facility] | | | | + + + +--------+ + + + + | Result panel 120 | + + + + + +--------+ + + | | 2022-01-11 | [facility] | 31.7 | (missing) | (missing) | | (unavailable | 10:42 | [facility] | | | | + + + +--------+ + + + + | Result panel 121 | + + + + + +--------+ + + | | 2022-01-11 | [facility] | 33.5 | (missing) | (missing) | | (unavailable | 10:42 | [facility] | | | | + + + +--------+ + + + + | Result panel 122 | + + + + + +--------+ + + | | 2022-01-11 | [facility] | 14.0 | (missing) | (missing) | | (unavailable | 10:42 | [facility] | | | | + + + +--------+ + + + + | Result panel 123 | + + + + + +-------+ + + | | 2022-01-11 | [facility] | 255 | (missing) | (missing) | | (unavailable | 10:42 | [facility] | | | | + + + +-------+ + + + + | Result panel 124 | + + + + + +--------+ + + | | 2022-01-11 | [facility] | 66.8 | (missing) | (missing) | | (unavailable | 10:42 | [facility] | | | | + + + +--------+ + + + + | Result panel 125 | + + + + + +--------+ + + | | 2022-01-11 | [facility] | 18.0 | (missing) | (missing) | | (unavailable | 10:42 | [facility] | | | | + + + +--------+ + + + + | Result panel 126 | + + + + + +-------+ + + | | 2022-01-11 | [facility] | 8.1 | (missing) | (missing) | | (unavailable | 10:42 | [facility] | | | | + + + +-------+ + + + + | Result panel 127 | + + + + + +-------+ + + | | 2022-01-11 | [facility] | 6.5 | (missing) | (missing) | | (unavailable | 10:42 | [facility] | | | | + + + +-------+ + + + + | Result panel 128 | + + + + + +-------+ + + | | 2022-01-11 | [facility] | 0.6 | (missing) | (missing) | | (unavailable | 10:42 | [facility] | | | | + + + +-------+ + + + + | Result panel 129 | + + + + + +------+---------+ + | | 2022-01-11 | [facility] | 76 | mg/dL | (missing) | | (unavailable | 10:42 | [facility] | | | | + + + +------+---------+ + + + | Result panel 130 | + + + + + +------+---------+ + | | 2022-01-11 | [facility] | 12 | mg/dL | (missing) | | (unavailable | 10:42 | [facility] | | | | + + + +------+---------+ + + + | Result panel 131 | + + + + + +--------+---------+ + | | 2022-01-11 | [facility] | 0.76 | mg/dL | (missing) | | (unavailable | 10:42 | [facility] | | | | + + + +--------+---------+ + + + | Result panel 132 | + + + + + +------+ + + | | 2022-01-11 | [facility] | 94 | (missing) | (missing) | | (unavailable | 10:42 | [facility] | | | | + + + +------+ + + + + | Result panel 133 | + + + + + +---------+ + + | | 2022-01-11 | [facility] | 15.78 | (missing) | (missing) | | (unavailable | 10:42 | [facility] | | | | + + + +---------+ + + + + | Result panel 134 | + + + + + +-------+ + + | | 2022-01-11 | [facility] | 136 | (missing) | (missing) | | (unavailable | 10:42 | [facility] | | | | + + + +-------+ + + + + | Result panel 135 | + + + + + +-------+ + + | | 2022-01-11 | [facility] | 4.1 | (missing) | (missing) | | (unavailable | 10:42 | [facility] | | | | + + + +-------+ + + + + | Result panel 136 | + + + + + +-------+ + + | | 2022-01-11 | [facility] | 102 | (missing) | (missing) | | (unavailable | 10:42 | [facility] | | | | + + + +-------+ + + + + | Result panel 137 | + + + + + +------+ + + | | 2022-01-11 | [facility] | 27 | (missing) | (missing) | | (unavailable | 10:42 | [facility] | | | | + + + +------+ + + + + | Result panel 138 | + + + + + +--------+ + + | | 2022-01-11 | [facility] | 11.1 | (missing) | (missing) | | (unavailable | 10:42 | [facility] | | | | + + + +--------+ + + + + | Result panel 139 | + + + + + +-------+---------+ + | | 2022-01-11 | [facility] | 7.9 | mg/dL | (missing) | | (unavailable | 10:42 | [facility] | | | | + + + +-------+---------+ + + + | Result panel 140 | + + + + + +-------+---------+ + | | 2022-01-11 | [facility] | 2.0 | mg/dL | (missing) | | (unavailable | 10:42 | [facility] | | | | + + + +-------+---------+ + + + | Result panel 141 | + + + + + +-------+ + + | | 2022-01-11 | [facility] | 6.5 | (missing) | (missing) | | (unavailable | 10:42 | [facility] | | | | + + + +-------+ + + + + | Result panel 142 | + + + + + +-------+ + + | | 2022-01-11 | [facility] | 3.4 | (missing) | (missing) | | (unavailable | 10:42 | [facility] | | | | + + + +-------+ + + + + | Result panel 143 | + + + + + +-------+ + + | | 2022-01-11 | [facility] | 3.1 | (missing) | (missing) | | (unavailable | 10:42 | [facility] | | | | + + + +-------+ + + + + | Result panel 144 | + + + + + +--------+ + + | | 2022-01-11 | [facility] | 1.10 | (missing) | (missing) | | (unavailable | 10:42 | [facility] | | | | + + + +--------+ + + + + | Result panel 145 | + + + + + +-------+ + + | | 2022-01-11 | [facility] | 0.7 | (missing) | (missing) | | (unavailable | 10:42 | [facility] | | | | + + + +-------+ + + + + | Result panel 146 | + + + + + +------+ + + | | 2022-01-11 | [facility] | 38 | (missing) | (missing) | | (unavailable | 10:42 | [facility] | | | | + + + +------+ + + + + | Result panel 147 | + + + + + +-----+ + + | | 2022-01-11 | [facility] | 9 | (missing) | (missing) | | (unavailable | 10:42 | [facility] | | | | + + + +-----+ + + + + | Result panel 148 | + + + + + +-------+ + + | | 2022-01-11 | [facility] | 137 | (missing) | (missing) | | (unavailable | 10:42 | [facility] | | | | + + + +-------+ + + + + | Result panel 149 | + + + + + +--------+ + + | | 2022-01-11 | [facility] | 19.3 | (missing) | (missing) | | (unavailable | 10:42 | [facility] | | | | + + + +--------+ + + + + | Result panel 150 | + + + + + +-------+ + + | | 2022-01-11 | [facility] | 7.1 | (missing) | (missing) | | (unavailable | 10:42 | [facility] | | | | + + + +-------+ + + + + | Result panel 151 | + + + + + +--------+ + + | | 2022-01-11 | [facility] | 3.17 | (missing) | (missing) | | (unavailable | 10:42 | [facility] | | | | + + + +--------+ + + + + | Result panel 152 | + + + + + +--------+ + + | | 2022-01-11 | [facility] | 10.1 | (missing) | (missing) | | (unavailable | 10:42 | [facility] | | | | + + + +--------+ + + + + | Result panel 153 | + + + + + +--------+ + + | | 2022-01-11 | [facility] | 30.0 | (missing) | (missing) | | (unavailable | 10:42 | [facility] | | | | + + + +--------+ + + + + | Result panel 154 | + + + + + +--------+ + + | | 2022-01-11 | [facility] | 94.7 | (missing) | (missing) | | (unavailable | 10:42 | [facility] | | | | + + + +--------+ + + + + | Result panel 155 | + + + + + +--------+ + + | | 2022-01-11 | [facility] | 31.7 | (missing) | (missing) | | (unavailable | 10:42 | [facility] | | | | + + + +--------+ + + + + | Result panel 156 | + + + + + +--------+ + + | | 2022-01-11 | [facility] | 33.5 | (missing) | (missing) | | (unavailable | 10:42 | [facility] | | | | + + + +--------+ + + + + | Result panel 157 | + + + + + +--------+ + + | | 2022-01-11 | [facility] | 14.0 | (missing) | (missing) | | (unavailable | 10:42 | [facility] | | | | + + + +--------+ + + + + | Result panel 158 | + + + + + +-------+ + + | | 2022-01-11 | [facility] | 255 | (missing) | (missing) | | (unavailable | 10:42 | [facility] | | | | + + + +-------+ + + + + | Result panel 159 | + + + + + +--------+ + + | | 2022-01-11 | [facility] | 66.8 | (missing) | (missing) | | (unavailable | 10:42 | [facility] | | | | + + + +--------+ + + + + | Result panel 160 | + + + + + +--------+ + + | | 2022-01-11 | [facility] | 18.0 | (missing) | (missing) | | (unavailable | 10:42 | [facility] | | | | + + + +--------+ + + + + | Result panel 161 | + + + + + +-------+ + + | | 2022-01-11 | [facility] | 8.1 | (missing) | (missing) | | (unavailable | 10:42 | [facility] | | | | + + + +-------+ + + + + | Result panel 162 | + + + + + +-------+ + + | | 2022-01-11 | [facility] | 6.5 | (missing) | (missing) | | (unavailable | 10:42 | [facility] | | | | + + + +-------+ + + + + | Result panel 163 | + + + + + +-------+ + + | | 2022-01-11 | [facility] | 0.6 | (missing) | (missing) | | (unavailable | 10:42 | [facility] | | | | + + + +-------+ + + + + | Result panel 164 | + + + + + + + + + | | 2022-01-11 | [facility] | NEGATIVE | (missing) | (missing) | | (unavailable | 11:01 | [facility] | | | | + + + + + + + + + | Result panel 165 | + + + + + + + + + | | 2022-01-11 | [facility] | NEGATIVE | (missing) | (missing) | | (unavailable | 11:01 | [facility] | | | | + + + + + + + + + | Result panel 166 | + + + + + + + + + | | 2022-01-11 | [facility] | NEGATIVE | (missing) | (missing) | | (unavailable | 11:01 | [facility] | | | | + + + + + + + + + | Result panel 167 | + + + + + + + + + | | 2022-01-11 | [facility] | NEGATIVE | (missing) | (missing) | | (unavailable | 11:01 | [facility] | | | | + + + + + + + + + | Result panel 168 | + + + + + + + + + | | 2022-01-11 | [facility] | NEGATIVE | (missing) | (missing) | | (unavailable | 11:01 | [facility] | | | | + + + + + + + + + | Result panel 169 | + + + + + + + + + | | 2022-01-11 | [facility] | NEGATIVE | (missing) | (missing) | | (unavailable | 11:01 | [facility] | | | | + + + + + + + + + | Result panel 170 | + + + + + + + + + | | 2022-01-11 | [facility] | NEGATIVE | (missing) | (missing) | | (unavailable | 11:01 | [facility] | | | | + + + + + + + + + | Result panel 171 | + + + + + + + + + | | 2022-01-11 | [facility] | NEGATIVE | (missing) | (missing) | | (unavailable | 11:01 | [facility] | | | | + + + + + + + + + | Result panel 172 | + + + + + + + + + | | 2022-01-11 | [facility] | NEGATIVE | (missing) | (missing) | | (unavailable | 11:01 | [facility] | | | | + + + + + + + + + | Result panel 173 | + + + + + + + + + | | 2022-01-11 | [facility] | NEGATIVE | (missing) | (missing) | | (unavailable | 11:01 | [facility] | | | | + + + + + + + + + | Result panel 174 | + + + + + + + + + | | 2022-01-11 | [facility] | NEGATIVE | (missing) | (missing) | | (unavailable | 11:01 | [facility] | | | | + + + + + + + + + | Result panel 175 | + + + + + + + + + | | 2022-01-11 | [facility] | NEGATIVE | (missing) | (missing) | | (unavailable | 11:01 | [facility] | | | | + + + + + + + + + | Result panel 176 | + + + + + + + + + | | 2022-01-11 | [facility] | NEGATIVE | (missing) | (missing) | | (unavailable | 11:01 | [facility] | | | | + + + + + + + + + | Result panel 177 | + + + + + + + + + | | 2022-01-11 | [facility] | NEGATIVE | (missing) | (missing) | | (unavailable | 11:01 | [facility] | | | | + + + + + + + + + | Result panel 178 | + + + + + + + + + | | 2022-01-11 | [facility] | NEGATIVE | (missing) | (missing) | | (unavailable | 11:01 | [facility] | | | | + + + + + + + + + | Result panel 179 | + + + + + + + + + | | 2022-01-11 | [facility] | NEGATIVE | (missing) | (missing) | | (unavailable | 11:01 | [facility] | | | | + + + + + + + + + | Result panel 180 | + + + + + + + + + | | 2022-01-11 | [facility] | NEGATIVE | (missing) | (missing) | | (unavailable | 11:01 | [facility] | | | | + + + + + + + + + | Result panel 181 | + + + + + + + + + | | 2022-01-11 | [facility] | NEGATIVE | (missing) | (missing) | | (unavailable | 11:01 | [facility] | | | | + + + + + + + + + | Result panel 182 | + + + + + + + + + | | 2022-01-11 | [facility] | NEGATIVE | (missing) | (missing) | | (unavailable | 11:01 | [facility] | | | | + + + + + + + + + | Result panel 183 | + + + + + + + + + | | 2022-01-11 | [facility] | NEGATIVE | (missing) | (missing) | | (unavailable | 11:01 | [facility] | | | | + + + + + + + + + | Result panel 184 | + + + + + + + + + | | 2022-01-11 | [facility] | NEGATIVE | (missing) | (missing) | | (unavailable | 11:01 | [facility] | | | | + + + + + + + + + | Result panel 185 | + + + + + + + + + | | 2022-01-11 | [facility] | NEGATIVE | (missing) | (missing) | | (unavailable | 11:01 | [facility] | | | | + + + + + + + + + | Result panel 186 | + + + + + + + + + | | 2022-01-11 | [facility] | NEGATIVE | (missing) | (missing) | | (unavailable | 11:01 | [facility] | | | | + + + + + + + + + | Result panel 187 | + + + + + + + + + | | 2022-01-11 | [facility] | NEGATIVE | (missing) | (missing) | | (unavailable | 11:01 | [facility] | | | | + + + + + + + + + | Result panel 188 | + + + + + + + + + | | 2022-01-11 | [facility] | NEGATIVE | (missing) | (missing) | | (unavailable | 11:01 | [facility] | | | | + + + + + + + + + | Result panel 189 | + + + + + + + + + | | 2022-01-11 | [facility] | NEGATIVE | (missing) | (missing) | | (unavailable | 11:01 | [facility] | | | | + + + + + + + + + | Result panel 190 | + + + + + + + + + | | 2022-01-11 | [facility] | NEGATIVE | (missing) | (missing) | | (unavailable | 11:46 | [facility] | | | | + + + + + + + + + | Result panel 191 | + + + + + + + + + | | 2022-01-11 | [facility] | NORMAL | (missing) | (missing) | | (unavailable | 11:46 | [facility] | | | | + + + + + + + + + | Result panel 192 | + + + + + + + + + | | 2022-01-11 | [facility] | NEGATIVE | (missing) | (missing) | | (unavailable | 11:46 | [facility] | | | | + + + + + + + + + | Result panel 193 | + + + + + + + + + | | 2022-01-11 | [facility] | NEGATIVE | (missing) | (missing) | | (unavailable | 11:46 | [facility] | | | | + + + + + + + + + | Result panel 194 | + + + + + + + + + | | 2022-01-11 | [facility] | YELLOW | (missing) | (missing) | | (unavailable | 11:46 | [facility] | | | | + + + + + + + + + | Result panel 195 | + + + + + +---------+ + + | | 2022-01-11 | [facility] | CLEAR | (missing) | (missing) | | (unavailable | 11:46 | [facility] | | | | + + + +---------+ + + + + | Result panel 196 | + + + + + + + + + | | 2022-01-11 | [facility] | NEGATIVE | (missing) | (missing) | | (unavailable | 11:46 | [facility] | | | | + + + + + + + + + | Result panel 197 | + + + + + + + + + | | 2022-01-11 | [facility] | NEGATIVE | (missing) | (missing) | | (unavailable | 11:46 | [facility] | | | | + + + + + + + + + | Result panel 198 | + + + + + + + + + | | 2022-01-11 | [facility] | NEGATIVE | (missing) | (missing) | | (unavailable | 11:46 | [facility] | | | | + + + + + + + + + | Result panel 199 | + + + + + + + + + | | 2022-01-11 | [facility] | <=1.005 | (missing) | (missing) | | (unavailable | 11:46 | [facility] | | | | + + + + + + + + + | Result panel 200 | + + + + + + + + + | | 2022-01-11 | [facility] | NEGATIVE | (missing) | (missing) | | (unavailable | 11:46 | [facility] | | | | + + + + + + + + + | Result panel 201 | + + + + + +-------+ + + | | 2022-01-11 | [facility] | 6.0 | (missing) | (missing) | | (unavailable | 11:46 | [facility] | | | | + + + +-------+ + + + + | Result panel 202 | + + + + + + + + + | | 2022-01-11 | [facility] | NEGATIVE | (missing) | (missing) | | (unavailable | 11:46 | [facility] | | | | + + + + + + + + + | Result panel 203 | + + + + + + + + + | | 2022-01-11 | [facility] | NORMAL | (missing) | (missing) | | (unavailable | 11:46 | [facility] | | | | + + + + + + + + + | Result panel 204 | + + + + + + + + + | | 2022-01-11 | [facility] | NEGATIVE | (missing) | (missing) | | (unavailable | 11:46 | [facility] | | | | + + + + + + + + + | Result panel 205 | + + + + + + + + + | | 2022-01-11 | [facility] | NEGATIVE | (missing) | (missing) | | (unavailable | 11:46 | [facility] | | | | + + + + + + + + + | Result panel 206 | + + + + + + + + + | | 2022-01-11 | [facility] | YELLOW | (missing) | (missing) | | (unavailable | 11:46 | [facility] | | | | + + + + + + + + + | Result panel 207 | + + + + + +---------+ + + | | 2022-01-11 | [facility] | CLEAR | (missing) | (missing) | | (unavailable | 11:46 | [facility] | | | | + + + +---------+ + + + + | Result panel 208 | + + + + + + + + + | | 2022-01-11 | [facility] | NEGATIVE | (missing) | (missing) | | (unavailable | 11:46 | [facility] | | | | + + + + + + + + + | Result panel 209 | + + + + + + + + + | | 2022-01-11 | [facility] | NEGATIVE | (missing) | (missing) | | (unavailable | 11:46 | [facility] | | | | + + + + + + + + + | Result panel 210 | + + + + + + + + + | | 2022-01-11 | [facility] | NEGATIVE | (missing) | (missing) | | (unavailable | 11:46 | [facility] | | | | + + + + + + + + + | Result panel 211 | + + + + + + + + + | | 2022-01-11 | [facility] | <=1.005 | (missing) | (missing) | | (unavailable | 11:46 | [facility] | | | | + + + + + + + + + | Result panel 212 | + + + + + + + + + | | 2022-01-11 | [facility] | NEGATIVE | (missing) | (missing) | | (unavailable | 11:46 | [facility] | | | | + + + + + + + + + | Result panel 213 | + + + + + +-------+ + + | | 2022-01-11 | [facility] | 6.0 | (missing) | (missing) | | (unavailable | 11:46 | [facility] | | | | + + + +-------+ + + + + | Result panel 214 | + + + + + +-------+ + + | | 2022-01-11 | [facility] | 0.5 | (missing) | (missing) | | (unavailable | 12:13 | [facility] | | | | + + + +-------+ + + + + | Result panel 215 | + + + + + +-------+ + + | | 2022-01-11 | [facility] | 0.5 | (missing) | (missing) | | (unavailable | 12:13 | [facility] | | | | + + + +-------+ + + Social History No information. Vital Signs + + + +---------+ | date | measurement | value | units | + + + +---------+ | 2021-10-23 00:00 | BMI | 23.0 | kg/m2 | + + + +---------+ | 2021-10-23 00:00 | BP_diastolic | 75 | mmHg | + + + +---------+ | 2021-10-23 00:00 | BP_systolic | 138 | mmHg | + + + +---------+ | 2021-10-23 00:00 | heart_rate | 78 | /min | + + + +---------+ | 2021-10-23 00:00 | height_metric | 160.02 | cm | + + + +---------+ | 2021-10-23 00:00 | height_standard | 63 | in | + + + +---------+ | 2021-10-23 00:00 | o2_saturation | 99 | % | + + + +---------+ | 2021-10-23 00:00 | respiration_rate | 16 | /min | + + + +---------+ | 2021-10-23 00:00 | temperature_metric | 36.67 | C | | | | | | + + + +---------+ | 2021-10-23 00:00 | | 98 | F | | | temperature_standar | | | | | d | | | + + + +---------+ | 2021-10-23 00:00 | weight_metric | 58.97 | kg | + + + +---------+ | 2021-10-23 00:00 | weight_standard | 130 | lb | + + + +---------+ | 2021-10-23 00:00 | weight_standard | 130.01 | lb | + + + +---------+ | 2021-11-27 00:00 | BMI | 25.7 | kg/m2 | + + + +---------+ | 2021-11-27 00:00 | height_metric | 160.02 | cm | + + + +---------+ | 2021-11-27 00:00 | height_standard | 63 | in | + + + +---------+ | 2021-11-27 00:00 | weight_metric | 65.7 | kg | + + + +---------+ | 2021-11-27 00:00 | weight_standard | 144.84 | lb | + + + +---------+ | 2021-11-28 00:00 | BP_diastolic | 73 | mmHg | + + + +---------+ | 2021-11-28 00:00 | BP_systolic | 122 | mmHg | + + + +---------+ | 2021-11-28 00:00 | heart_rate | 59 | /min | + + + +---------+ | 2021-11-28 00:00 | o2_saturation | 98 | % | + + + +---------+ | 2021-11-28 00:00 | respiration_rate | 18 | /min | + + + +---------+ | 2021-11-28 00:00 | temperature_metric | 36.39 | C | | | | | | + + + +---------+ | 2021-11-28 00:00 | | 97.5 | F | | | temperature_standar | | | | | d | | | + + + +---------+ | 2022-01-07 00:00 | BMI | 25.7 | kg/m2 | + + + +---------+ | 2022-01-07 00:00 | BP_diastolic | 80 | mmHg | + + + +---------+ | 2022-01-07 00:00 | BP_systolic | 126 | mmHg | + + + +---------+ | 2022-01-07 00:00 | heart_rate | 72 | /min | + + + +---------+ | 2022-01-07 00:00 | height_metric | 160.02 | cm | + + + +---------+ | 2022-01-07 00:00 | height_standard | 63 | in | + + + +---------+ | 2022-01-07 00:00 | o2_saturation | 98 | % | + + + +---------+ | 2022-01-07 00:00 | respiration_rate | 16 | /min | + + + +---------+ | 2022-01-07 00:00 | temperature_metric | 36.72 | C | | | | | | + + + +---------+ | 2022-01-07 00:00 | | 98.1 | F | | | temperature_standar | | | | | d | | | + + + +---------+ | 2022-01-07 00:00 | weight_metric | 65.68 | kg | + + + +---------+ | 2022-01-07 00:00 | weight_metric | 65.69 | kg | + + + +---------+ | 2022-01-07 00:00 | weight_standard | 144.81 | lb | + + + +---------+ | 2022-01-07 00:00 | weight_standard | 144.82 | lb | + + + +---------+ | 2022-01-11 00:00 | BMI | 25.7 | kg/m2 | + + + +---------+ | 2022-01-11 00:00 | BP_diastolic | 53 | mmHg | + + + +---------+ | 2022-01-11 00:00 | BP_systolic | 118 | mmHg | + + + +---------+ | 2022-01-11 00:00 | heart_rate | 61 | /min | + + + +---------+ | 2022-01-11 00:00 | height_metric | 160.02 | cm | + + + +---------+ | 2022-01-11 00:00 | height_standard | 63 | in | + + + +---------+ | 2022-01-11 00:00 | o2_saturation | 99 | % | + + + +---------+ | 2022-01-11 00:00 | respiration_rate | 14 | /min | + + + +---------+ | 2022-01-11 00:00 | temperature_metric | 36.61 | C | | | | | | + + + +---------+ | 2022-01-11 00:00 | | 97.9 | F | | | temperature_standar | | | | | d | | | + + + +---------+ | 2022-01-11 00:00 | weight_metric | 65.68 | kg | + + + +---------+ | 2022-01-11 00:00 | weight_metric | 65.69 | kg | + + + +---------+ | 2022-01-11 00:00 | weight_standard | 144.81 | lb | + + + +---------+ | 2022-01-11 00:00 | weight_standard | 144.82 | lb | + + + +---------+"
--- OUTSIDE RECORDS SUMMARY | ~2023-01-16 | XMS | Continuity of Care Document ---
Demographics + + + | Address | [id number] [place] [address] RD | | | [place] [id number] | + + + | Preferred Language | Unknown | + + + | Marital Status | | + + + | Faith Affiliation | Unknown | + + + | Race | or | + + + | Ethnic Group | Not or | + + + Author + + + | Author | [facility] | + + + | Organization | [facility] | + + + | Address | [address] | | | [place] [address] | + + + | Phone | | + + + Care Team Providers + + + + | Care Manager Compliance Name | Role | Phone | + [...] + | 2016-02-12 00:00 | Tdap | [facility] | + + + + | 2016-02-12 00:00 | Tdap | [facility] | + + + + | 2016-04-10 00:00 | Tdap | [facility] | + + + + | 2016-04-10 00:00 | Tdap | [facility] | + + + + | 2014-03-17 00:00 | DTaP | [facility] | + + + + | 2014-03-17 00:00 | DTaP | [facility] | + + + + Medications + + + + | date | description | facility | + + + + | 2021-12-07 00:00 | DOCUSATE SODIUM | [facility] | + + + + | 2022-01-13 00:00 | DOCUSATE SODIUM | [facility] | + + + + | 2022-01-18 00:00 | DOCUSATE SODIUM | [facility] | + + + + | 2022-01-13 00:00 | Budesonide/Formoterol | [facility] | | | Fumarate | | + + + + | 2022-01-18 00:00 | Budesonide/Formoterol | [facility] | | | Fumarate | | + + + + | 2021-12-07 00:00 | IPRATROPIUM/ALBUTEROL | [facility] | | | SULFATE | | + + + + | 2022-01-13 00:00 | IPRATROPIUM/ALBUTEROL | [facility] | | | SULFATE | | + + + + | 2022-01-18 00:00 | IPRATROPIUM/ALBUTEROL | [facility] | | | SULFATE | | + + + + | 2021-12-07 00:00 | IPRATROPIUM/ALBUTEROL | [facility] | | | SULFATE | | + + + + | 2022-01-13 00:00 | IPRATROPIUM/ALBUTEROL | [facility] | | | SULFATE | | + + + + | 2022-01-18 00:00 | IPRATROPIUM/ALBUTEROL | [facility] | | | SULFATE | | + + + + | 2022-01-11 00:00 | CEPHALEXIN | [facility] | + + + + | 2020-12-28 00:00 | DEXAMETHASONE | [facility] | + + + + | 2020-12-28 00:00 | DEXAMETHASONE | [facility] | + + + + | 2021-12-07 00:00 | DIAZEPAM | [facility] | + + + + | 2022-01-13 00:00 | DIAZEPAM | [facility] | + + + + | 2022-01-18 00:00 | DIAZEPAM | [facility] | + + + + | 2021-12-07 00:00 | IBUPROFEN | [facility] | + + + + | 2022-01-13 00:00 | IBUPROFEN | [facility] | + + + + | 2022-01-18 00:00 | IBUPROFEN | [facility] | + + + + | 2021-12-07 00:00 | IBUPROFEN | [facility] | + + + + | 2022-01-13 00:00 | IBUPROFEN | [facility] | + + + + | 2022-01-18 00:00 | IBUPROFEN | [facility] | + + + + | 2021-12-07 00:00 | CEPHALEXIN | [facility] | + + + + | 2022-01-13 00:00 | CEPHALEXIN | [facility] | + + + + | 2022-01-18 00:00 | CEPHALEXIN | [facility] | + + + + | 2021-12-07 00:00 | LISINOPRIL | [facility] | + + + + | 2022-01-13 00:00 | LISINOPRIL | [facility] | + + + + | 2022-01-18 00:00 | LISINOPRIL | [facility] | + + + + | 2021-12-07 00:00 | CHOLECALCIFEROL (VITAMIN | [facility] | | | D3) | | + + + + | 2022-01-13 00:00 | CHOLECALCIFEROL (VITAMIN | [facility] | | | D3) | | + + + + | 2022-01-18 00:00 | CHOLECALCIFEROL (VITAMIN | [facility] | | | D3) | | + + + + | 2021-12-07 00:00 | HYDROCODONE | [facility] | | | BIT/ACETAMINOPHEN | | + + + + | 2022-01-13 00:00 | HYDROCODONE | [facility] | | | BIT/ACETAMINOPHEN | | + + + + | 2022-01-18 00:00 | HY[facility]OCODONE | [facility] | | | BIT/ACETAMINOPHEN | | + + + + | 2021-12-07 00:00 | LOPERAMIDE HCL | [facility] | + + + + | 2022-01-13 00:00 | LOPERAMIDE HCL | [facility] | + + + + | 2022-01-18 00:00 | LOPERAMIDE HCL | [facility] | + + + + | 2022-01-13 00:00 | DONEPEZIL HCL | [facility] | + + + + | 2022-01-18 00:00 | DONEPEZIL HCL | [facility] | + + + + Problems + + + + | date | description | facility | + + + + | 2014-03-17 00:00 | Rib pain | [facility] | + + + + | 2014-03-17 00:00 | Rib pain | [facility] | + + + + | 2014-05-27 00:00 | Intoxication | [facility] | + + + + | 2014-05-27 00:00 | Intoxication | [facility] | + + + + | 2014-09-13 00:00 | Abdominal hernia | [facility] | + + + + | 2014-09-13 00:00 | Abdominal hernia | [facility] | + + + + | 2016-01-02 00:00 | Alcoholic intoxication | [facility] | + + + + | 2016-01-02 00:00 | Alcoholic intoxication | [facility] | + + + + | 2016-01-02 00:00 | Abrasion of scalp | [facility] | + + + + | 2016-01-02 00:00 | Abrasion of scalp | [facility] | + + + + | 2016-01-02 00:00 | Closed head injury | [facility] | + + + + | 2016-01-02 00:00 | Closed head injury | [facility] | + + + + | 2016-01-02 00:00 | Accidental fall | [facility] | + + + + | 2016-01-02 00:00 | Accidental fall | [facility] | + + + + | 2016-02-12 00:00 | Abrasion of forehead | [facility] | + + + + | 2016-02-12 00:00 | Abrasion of forehead | [facility] | + + + + | 2016-02-12 00:00 | Abrasion of left knee, | [facility] | | | initial encounter | | + + + + | 2016-02-12 00:00 | Abrasion of left knee, | [facility] | | | initial encounter | | + + + + | 2016-03-23 00:00 | Alcoholism | [facility] | + + + + | 2016-03-23 00:00 | Alcoholism | [facility] | + + + + | 2016-03-23 00:00 | Accident due to mechanical | [facility] | | | fall without injury | | + + + + | 2016-03-23 00:00 | Accident due to mechanical | [facility] | | | fall without injury | | + + + + | 2016-04-09 00:00 | Facial laceration | [facility] | + + + + | 2016-04-09 00:00 | Facial laceration | [facility] | + + + + | 2016-04-10 00:00 | Acute alcoholic | [facility] | | | intoxication | | + + + + | 2016-04-10 00:00 | Acute alcoholic | [facility] | | | intoxication | | + + + + | 2016-04-10 00:00 | Subarachnoid hemorrhage | [facility] | | | following injury | | + + + + | 2016-04-10 00:00 | Subarachnoid hemorrhage | [facility] | | | following injury | | + + + + | 2016-07-09 00:00 | Chronic alcoholic | [facility] | | | intoxication | | + + + + | 2016-07-09 00:00 | Chronic alcoholic | [facility] | | | intoxication | | + + + + | 2017-06-15 00:00 | Chronic alcoholic | [facility] | | | intoxication without | | | | complication | | + + + + | 2017-06-15 00:00 | Chronic alcoholic | [facility] | | | intoxication without | | | | complication | | + + + + | 2017-11-08 00:00 | Encounter for medical | [facility] | | | screening examination | | + + + + | 2017-11-08 00:00 | Encounter for medical | [facility] | | | screening examination | | + + + + | 2017-12-07 00:00 | Laceration of right upper | [facility] | | | arm | | + + + + | 2017-12-07 00:00 | Laceration of right upper | [facility] | | | arm | | + + + + | 2017-12-28 00:00 | Alcohol abuse | [facility] | + + + + | 2017-12-28 00:00 | Alcohol abuse | [facility] | + + + + | 2020-12-24 00:00 | Pneumonia due to severe | [facility] | | | acute respiratory syndrome | | | | coronavirus 2 (SARS-CoV-2) | | + + + + | 2020-12-24 00:00 | Pneumonia due to severe | [facility] | | | acute respiratory syndrome | | | | coronavirus 2 (SARS-CoV-2) | | + + + + | 2021-11-28 00:00 | Dementia | [facility] | + + + + | 2021-11-28 00:00 | Dementia | [facility] | + + + + | 2021-11-28 00:00 | Difficulty walking | [facility] | + + + + | 2021-11-28 00:00 | Difficulty walking | [facility] | + + + + | 2022-01-07 00:00 | Laceration of scalp | [facility] | + + + + Procedures No [...] (missing) | | (unavailable | 22:00 | [facility] | | | | | ) | [...]
[~2023-01-16 09:37] MED LIST changes: +ACEROLA C500 MG PO; +ATIVAN0.5 MG PO; +B-12 DOTS500 MCG PO; +BUDESONIDE-FO10.2 GM INH; +CEPHALEXIN500 M1 PO; +DONEPEZIL HCL5 MG PO; +FERRO-TIME325 MG PO; +OLANZAPINE2.5 MG PO; +SEROQUEL25 MG PO
--- OUTSIDE RECORDS SUMMARY | 2023-01-16 09:38 | XMS ---
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 Care History Medical/Surgical 12/30/2017 [facility] - Patient is currently working with [facility] case management team. Rodrigo is patient current CHR at [facility] and can be contacted at [phone]. - Patient [facility] currently visits patient once a month and sees patient at the [facility] weekly. E.D. VISIT COUNT ([address] [facility] TOTAL 2 NOTE: Visits indicate total known visits. 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
[2023-01-16 10:25] LABS: HEMOGLOBIN 13.9 g/dL (12.0-18.0)
[2023-01-16 10:27] LABS: HEMATOCRIT 41.7 % (35.0-50.0); MCH 31.6 (27-36); MCHC 33.2 g/dl (30-36); RBC 4.39 M/ul (4.3-5.7)
[2023-01-16 10:30] LABS: INR 1.18 (0.80-1.30); PROTIME 14.6 Sec (11.2-14.2)
[2023-01-16 10:32] LABS: BASE EXCESS, BLOOD GAS -8.1 mmol/L (-2-2); HCO3, BLOOD GAS 19.8 mmol/L (22-26); PCO2, BLOOD GAS 48.5 mmHg (35-45); PH, BLOOD GAS 7.22 (7.35-7.45); PO2, BLOOD GAS 135 mmHg (80-100)
[2023-01-16 10:35] LABS: O2 SATURATION, BLOOD GAS 99.5 % (95.0-100.0); OXYGEN RECEIVED, BLOOD GAS 60%; TOTAL CO2, BLOOD GAS 21.25
[2023-01-16 10:43] LABS: ALBUMIN 3.1 g/dL (3.4-5.0); ALBUMIN/GLOBULIN RATIO 0.84 (1.1-2.4); ANION GAP 21.2 (7-21); BILIRUBIN, TOTAL 0.4 ng/dL (0.2-1.0); BUN/CREATININE RATIO 7.96 (6.0-28.6); CALCIUM 7.9 mg/dL (8.5-10.1); CREATININE, SERUM 1.13 mg/dL (0.70-1.30); MAGNESIUM 2.1 mg/dL (1.8-2.4); POTASSIUM 3.2 mmol/L (3.5-5.1); PROTEIN, TOTAL 6.8 g/dL (6.4-8.2)
[2023-01-16 10:47] LABS: AMPHETAMINES, UR NEGATIVE (NEGATIVE); BARBITURATES, UR NEGATIVE (NEGATIVE); BENZODIAZEPINES, UR POSITIVE (NEGATIVE); COCAINE, UR NEGATIVE (NEGATIVE); MARIJUANA (THC), UR NEGATIVE (NEGATIVE)
[2023-01-16 10:48] LABS: BUPRENORPHINE,UR NEGATIVE (NEGATIVE); MDMA, UR NEGATIVE (NEGATIVE); METHADONE, UR NEGATIVE (NEGATIVE); METHAMPHETAMINE, UR NEGATIVE (NEGATIVE); OPIATES, UR NEGATIVE (NEGATIVE); OXYCODONE, UR NEGATIVE (NEGATIVE); PHENCYCLIDINE, UR NEGATIVE (NEGATIVE); TRICYCLIC ANTIDEPRESSANT, UR NEGATIVE (NEGATIVE)
[2023-01-16 10:54] LABS: BANDS, MANUAL DIFF 1; EOSINOPHILS, MANUAL DIFF 3; LYMPHOCYTES, MANUAL DIFF 35; MONOCYTES, MANUAL DIFF 4; NEUTROPHILS, MANUAL DIFF 57
[2023-01-16 10:57] LABS: PLATELET COUNT 304 K/uL (140-440)
[2023-01-16 11:05] LABS: PARTIAL THROMBOPLASTIN TIME 31.9 Sec (22.9-41.3)
[2023-01-16 12:04] LABS: INFLUENZA B NAA NEGATIVE (NEGATIVE); RESPIRATORY SYNCYTIAL VIR NAA NEGATIVE (NEGATIVE)
[2023-01-16 14:50] VITALS: BP 113/70
--- NOTE | 2023-01-16 21:12 | EKG ---
[facility] [address] [place] [address] Signed Undetermined rhythm Incomplete left bundle branch block ST \T\ T wave abnormality, consider inferolateral ischemia Abnormal ECG Confirmed by Hilda Irene MD () on 01/16/2023 9:12:18 PM Electronically Signed By: HILDA IRENE MD 01/16/232111 PATIENT NAME: MICKI OSMAN Electrocardiogram DATE OF : 47 PHYSICIAN: HILDA IRENE MD REPORT #: [id number] REPORT IS CONFIDENTIAL AND NOT TO BE RELEASED WITHOUT AUTHORIZATION
== END 2023-01-16 14:30 | disposition short-term general hospital (02) ==
LOC: ED 09:37
PROVIDERS: Family Medicine
DX: T17.928A Food in respiratory tract, part unspecified causing other injury, initial encounter (principal); I48.91 Unspecified atrial fibrillation; J69.0 Pneumonitis due to inhalation of food and vomit; I46.9 Cardiac arrest, cause unspecified; E87.29 Other acidosis; J96.90 Respiratory failure, unspecified, unspecified whether with hypoxia or hypercapnia; I10 Essential (primary) hypertension; Z87.891 Personal history of nicotine dependence; Z79.899 Other long term (current) drug therapy; Z20.822 Contact with and (suspected) exposure to COVID-19
CPT/HCPCS: 31500; 36415; 36600; 70450; 71045; 80053; 82803; 83605; 83735; 83880; 84484; 85025; 85610; 85730; 87502; 93005; 93010; 94002; C9803; J0282; J2250; J2543; J3010; J7030; U0002